=== PATIENT | female | born 1945 | race Caucasian/White ===

== ENCOUNTER → 2016-12-26 | Outpatient (CLI) | payer OTHER ==
[~2016-12-26] MED LIST: ASPI-435 PO; ATOR-24 PO; CARV6.252 PO; CLOP1TAB5 PO; CLR10 PO; DICL1GEL28 TOP; FRS/40 PO; LEVO150T9 PO; LISI2.5T5 PO; LSX/40 PO; NVLGI SC; NVLNI SQ; RANI300T2 PO; [UNRECOGNIZED DRUG - CODE] SQ
== END | disposition home or self-care (01) ==
LOC: C.LAB1850 15:43
PROVIDERS: ATTEND Physician Assistant
DX: E03.9 Hypothyroidism, unspecified (principal)

== ENCOUNTER → 2017-04-01 | Outpatient (CLI) | payer OTHER ==
[2017-04-01 18:19] LABS: THYROID STIMULATING HORMONE 10.9 uIu/ml (0.300-4.500)
[2017-04-02 06:54] LABS: ESTIMATED AVERAGE GLUCOSE 194 mg/dl; HA1C FLAG Normal (Normal)
== END | disposition home or self-care (01) ==
LOC: C.LABPBG 14:09
PROVIDERS: ATTEND Nurse Practitioner Family
DX: E03.9 Hypothyroidism, unspecified (principal); E11.9 Type 2 diabetes mellitus without complications

== ENCOUNTER → 2017-07-02 | Outpatient (CLI) | payer OTHER ==
[~2017-07-02] MED LIST changes: +DICL1GEL34 TOP; +LISI-1116 PO; -LISI2.5T5 PO; +NVLG SQ
[2017-07-03 07:03] LABS: HEMOGLOBIN A1C 8.2 % (4.5-5.6)
== END | disposition home or self-care (01) ==
LOC: C.LABPBG 11:25
PROVIDERS: ATTEND Nurse Practitioner Family
DX: E05.90 Thyrotoxicosis, unspecified without thyrotoxic crisis or storm (principal); E03.9 Hypothyroidism, unspecified; E11.65 Type 2 diabetes mellitus with hyperglycemia

== ENCOUNTER 2017-11-19 12:29 | Emergency (ER) | payer OTHER ==
[~2017-11-19 12:29] MED LIST changes: -DICL1GEL34 TOP; -NVLG SQ
[2017-11-19] MEDS ORDERED: SODIUM CHLORIDE 0.9% 1000ML 1,000 ML IV STA (12:39)
--- NOTE | 2017-11-19 12:44 | EMERGENCY ROOM VISIT NOTE ---
History Report prepared by Nitin: Lefty Dumas Under the Supervision of: Dr. Gretchen Kahn M.D. First contact with patient: 12:34 History of Present Illness The patient is a 72 year old female who presents to the Emergency Room via EMS with complaints of persistent hypoglycemia this morning. She says she is coming from home, and "was told" that her sugars were down to 39. The patient notes that she is not sure who called the ambulance. She says that she has no idea why her sugars would have dropped, as she ate last night and took her medications. The patient has not eaten today yet however. She says that she has not taken any medications this morning yet. She notes that she was given something in her IV before coming here. She states that she stayed up until 0300 this morning watching her television. The patient adds that she fell at [employer] a week ago, tripping over a rug in the store. She did hit the floor. The patient currently denies any pain or discomfort. She also denies any cough, fevers, vomiting, or bowel movement issues. The patient states that she has kidney troubles but is not on dialysis. Source of History: patient Onset: This morning Position: other (global) Symptom Intensity: sugars down to 39 Quality: other (hypoglycemia) Timing: other (persistent) Associated Symptoms: No fevers, No chills, No cough Note: Associated symptoms: Denies any pain or bowel movement issues. Review of Systems See HPI for pertinent positives & negatives. A total of 10 systems reviewed and were otherwise negative. Past Medical & Surgical Medical Problems: (1) Diabetes (2) Heart disease (3) Hypertension Family History Diabetes mellitus FH: cancer FH: heart disease Hypertension Social History Smoking Status: Former Smoker Alcohol Use: none Marital Status: Housing Status: lives with family Occupation Status: retired Current/Historical Medications Scheduled Aspirin (Aspirin 81), 81 MG PO DAILY Atorvastatin (Lipitor), 40 MG PO DAILY Carvedilol (Coreg), 6.25 MG PO BIDM Clopidogrel Bisulfate (Plavix), 75 MG PO DAILY Diclofenac Sodium (Topical) (Diclofenac Sodium), 2-4 GM TOP QID Furosemide (Lasix), 40 MG PO DAILY Insulin Aspart (Novolog), 35 UNITS SQ QDB Insulin Aspart (Novolog), 10 UNITS SQ QDD Insulin Human NPH (Novolin N), 65 UNITS SQ QDD Insulin Human NPH (Novolin N), 75 UNITS SQ QDB Levothyroxine Sodium (Levothyroxine Sodium), 150 MCG PO DAILY Lisinopril (Lisinopril), 2.5 MG PO DAILY Ranitidine Hcl (Zantac), 300 MG PO HS Scheduled PRN Furosemide (Lasix), 40 MG PO DAILY PRN for swelling Loratadine (Claritin), 10 MG PO DAILY PRN for allergies Allergies Coded Allergies: Sulfa Drugs (Unverified Allergy, Unknown, unknown, 11/19/17) Uncoded Allergies: BAND-AID (Allergy, Unknown, RASH, 10/16/15) Physical Exam Vital Signs Date Time Temp Pulse Resp B/P (MAP) Pulse Ox O2 Delivery O2 Flow Rate FiO2 11/19/17 14:30 55 18 133/68 99 Room Air 11/19/17 13:47 99 11/19/17 13:42 36.6 60 20 143/97 100 Room Air 11/19/17 12:40 56 11/19/17 12:33 147/56 11/19/17 12:30 52 20 147/56 98 Room Air Physical Exam Vital signs reviewed. General: Obese, disheveled 72 year old female, in no significant distress. HEENT: Right eye strabismus. Neck supple. Atraumatic. Cardiovascular: Regular rate and rhythm, no extra sounds. Pulmonary: Clear to auscultation bilaterally, normal work of breathing. Abdomen: Soft, nontender, nondistended, positive bowel sounds. Musculoskeletal: Atraumatic, no peripheral edema. Neurologic: Patient awake alert and oriented x 3, full strength in all 4 extremities. Cranial nerves 2 through 12 grossly intact. Skin: Warm, dry, no rash Medical Decision & Procedures ER Provider Diagnostic Interpretation: X-ray results as stated below per interpretation by me and the radiologist: CHEST ONE VIEW PORTABLE HISTORY: 72 years-old Female hypoglycemia COMPARISON: Chest radiograph 02/29/2016 TECHNIQUE: Portable AP view of the chest FINDINGS: Patient is slightly rotated to the right. Cardiac silhouette is again enlarged. Coronary arterial stent graft noted. Linear subsegmental bibasilar opacities suggest atelectasis or scarring. There is no pneumothorax, pleural effusion, lobar airspace consolidation or overt pulmonary edema. Bones of the chest appear grossly intact. Degenerative changes of the shoulders and spine. IMPRESSION: Cardiomegaly without acute process. The above report was generated using voice recognition software. It may contain grammatical, syntax or spelling errors. Electronically signed by: Ruslan Bragg M.D. 11/19/2017 12:56 PM Dictated Date/Time: 11/19/2017 12:55 PM Laboratory Results 11/19/17 12:47 Red Blood Count 4.90, Mean Corpuscular Volume 81.6, Mean Corpuscular Hemoglobin 26.7, Mean Corpuscular Hemoglobin Concent 32.8, Mean Platelet Volume 9.1, Neutrophils (%) (Auto) 79.3, Lymphocytes (%) (Auto) 14.7, Monocytes (%) (Auto) 4.2, Eosinophils (%) (Auto) 0.9, Basophils (%) (Auto) 0.5, Neutrophils # (Auto) 8.35, Lymphocytes # (Auto) 1.55, Monocytes # (Auto) 0.44, Eosinophils # (Auto) 0.10, Basophils # (Auto) 0.05 11/19/17 12:47 Test 11/19/17 12:47 11/19/17 13:40 11/19/17 14:40 White Blood Count 10.53 K/uL (4.8-10.8) Red Blood Count 4.90 M/uL (4.2-5.4) Hemoglobin 13.1 g/dL (12.0-16.0) Hematocrit 40.0 % (37-47) Mean Corpuscular Volume 81.6 fL (80-100) Mean Corpuscular Hemoglobin 26.7 pg (25-34) Mean Corpuscular Hemoglobin Concent 32.8 g/dl (32-36) Platelet Count 340 K/uL (130-400) Mean Platelet Volume 9.1 fL (7.4-10.4) Neutrophils (%) (Auto) 79.3 % Lymphocytes (%) (Auto) 14.7 % Monocytes (%) (Auto) 4.2 % Eosinophils (%) (Auto) 0.9 % Basophils (%) (Auto) 0.5 % Neutrophils # (Auto) 8.35 K/uL (1.4-6.5) Lymphocytes # (Auto) 1.55 K/uL (1.2-3.4) Monocytes # (Auto) 0.44 K/uL (0.11-0.59) Eosinophils # (Auto) 0.10 K/uL (0-0.5) Basophils # (Auto) 0.05 K/uL (0-0.2) RDW Standard Deviation 44.8 fL (36.4-46.3) RDW Coefficient of Variation 15.2 % (11.5-14.5) Immature Granulocyte % (Auto) 0.4 % Immature Granulocyte # (Auto) 0.04 K/uL (0.00-0.02) Anion Gap 6.0 mmol/L (3-11) Estimated GFR () 40.6 Estimated GFR (Non- 35.1 BUN/Creatinine Ratio 19.7 (10-20) Calcium Level 8.9 mg/dl (8.5-10.1) Total Bilirubin 0.6 mg/dl (0.2-1) Direct Bilirubin 0.2 mg/dl (0-0.2) Aspartate Amino Transf (AST/SGOT) 19 U/L (15-37) Alanine Aminotransferase (ALT/SGPT) 20 U/L (12-78) Alkaline Phosphatase 139 U/L (45-117) Troponin I < 0.015 ng/ml (0-0.045) Total Protein 7.9 gm/dl (6.4-8.2) Albumin 3.3 gm/dl (3.4-5.0) Thyroid Stimulating Hormone (TSH) 0.276 uIu/ml (0.300-4.500) Urine Color YELLOW Urine Appearance CLEAR (CLEAR) Urine pH 5.0 (4.5-7.5) Urine Specific Sharon 1.020 (1.000-1.030) Urine Protein NEG (NEG) Urine Glucose (UA) NEG (NEG) Urine Ketones NEG (NEG) Urine Occult Blood NEG (NEG) Urine Nitrite NEG (NEG) Urine Bilirubin NEG (NEG) Urine Urobilinogen NEG (NEG) Urine Leukocyte Esterase SMALL (NEG) Urine WBC (Auto) 5-10 /hpf (0-5) Urine RBC (Auto) 0-4 /hpf (0-4) Urine Hyaline Casts (Auto) 1-5 /lpf (0-5) Urine Epithelial Cells (Auto) 20-30 /lpf (0-5) Urine Bacteria (Auto) NEG (NEG) Bedside Glucose 155 mg/dl (70-90) Laboratory results per my review. Medications Administered Medications (Trade) Dose Ordered Sig/Nata Route Start Time Stop Time Status Last Admin Dose Admin Sodium Chloride 1,000 ml @ 150 mls/hr Q6H40M STAT IV 11/19/17 12:39 11/19/17 15:18 DC 11/19/17 12:55 150 MLS/HR ECG Per My Interpretation Indication: other (hypoglycemia) Rate (beats per minute): 59 Rhythm: sinus bradycardia Findings: 1st degree AV block, prolonged QT (qtc is 483), no ectopy ED Course 1239: Past medical records reviewed. The patient was evaluated in room C6. A complete history and physical examination was performed. 1239: NSS 1000 ml @ 150 mls/hr IV. 1452: Upon reevaluation, the patient appeared to be resting comfortably. I discussed findings with her. She verbalized agreement of the treatment plan. She will be discharged home. Medical Decision Differential diagnosis: Etiologies such as metabolic, infection, hypoglycemia, electrolyte abnormalities , cardiac sources, intracerebral event, toxicologic, neurologic, as well as others were entertained. This patient was evaluated and appeared to be in no significant distress. IV access was obtained and laboratory work was drawn. Patient was placed on the cardiac nurse specialist. She was found to be in a normal sinus rhythm. She was hydrated with normal saline solution. Patient is found to have a normal glucose level. She was given a diabetic tray. Patient's granddaughter arrived in the emergency department and states that she often does not eat for many hours in the morning. Patient's chest x-ray is negative for acute findings. Laboratory work reveals no significant derangement. Urinalysis is clear. Patient was discharged to the care of her granddaughter. The ED pharmacist spent some time educating the patient regarding her insulin. She will follow- up with her physician and return to the ER for worsening of symptoms or any medical concerns. Medication Reconcilliation Current Medication List: was personally reviewed by me Blood Pressure Screening Patient's blood pressure: Elevated blood pressure Blood pressure disposition: Elevated BP felt to be situational Impression Primary Impression: Hypoglycemia Scribe Attestation The scribe's documentation has been prepared under my direction and personally reviewed by me in its entirety. I confirm that the note above accurately reflects all work, treatment, procedures, and medical decision making performed by me. Departure Information Dispostion Home / Self-Care Referrals Mai Judge M.D. (PCP) Forms HOME CARE DOCUMENTATION FORM, IMPORTANT VISIT INFORMATION, WORK / SCHOOL INSTRUCTIONS Patient Instructions [facility] Additional Instructions Diagnosis: Hypoglycemia Please eat frequent and balanced snacks including a protein, fat, carbohydrate and fruits/vegetables. Be sure to eat as soon as you wake up. You may need to prepare a snack prior to bed. Drink plenty of clear fluids. Check your blood sugars for the next several days and follow-up with your doctor for reevaluation and consideration of change in your diabetes medications. Return to the emergency department for worsening of symptoms or any medical concerns.
[2017-11-19 12:57] LABS: BASO % 0.5 %; BASO ABS # 0.05 K/uL (0-0.2); EOS % 0.9 %; HEMOGLOBIN 13.1 g/dL (12.0-16.0); IG# 0.04 K/uL (0.00-0.02); LYMPH % 14.7 %; LYMPH ABS # 1.55 K/uL (1.2-3.4); MEAN CELL VOLUME 81.6 fL (80-100); MEAN CORPUSCULAR HEMOGLOBIN 26.7 pg (25-34); MEAN CORPUSCULAR HGB CONC 32.8 g/dl (32-36); MEAN PLATELET VOLUME 9.1 fL (7.4-10.4); MONO % 4.2 %; MONO ABS # 0.44 K/uL (0.11-0.59); NEUT % 79.3 %; NEUT ABS # 8.35 K/uL (1.4-6.5); PLATELET COUNT 340 K/uL (130-400); RED CELL DISTRIBUTION WIDTH CV 15.2 % (11.5-14.5); RED CELL DISTRIBUTION WIDTH SD 44.8 fL (36.4-46.3); WHITE BLOOD COUNT 10.53 K/uL (4.8-10.8)
--- NOTE | 2017-11-19 12:58 | DIAGNOSTIC IMAGING REPORT ---
CHEST ONE VIEW PORTABLE HISTORY: 72 years-old Female hypoglycemia COMPARISON: Chest radiograph 02/29/2016 TECHNIQUE: Portable AP view of the chest FINDINGS: Patient is slightly rotated to the right. Cardiac silhouette is again enlarged. Coronary arterial stent graft noted. Linear subsegmental bibasilar opacities suggest atelectasis or scarring. There is no pneumothorax, pleural effusion, lobar airspace consolidation or overt pulmonary edema. Bones of the chest appear grossly intact. Degenerative changes of the shoulders and spine. IMPRESSION: Cardiomegaly without acute process. The above report was generated using voice recognition software. It may contain grammatical, syntax or spelling errors. Electronically signed by: Ruslan Bragg M.D. 11/19/2017 12:56 PM Dictated Date/Time: 11/19/2017 12:55 PM
[2017-11-19 13:14] LABS: ALBUMIN 3.3 gm/dl (3.4-5.0); ALT/SGPT 20 U/L (12-78); AST/SGOT 19 U/L (15-37); BLOOD UREA NITROGEN 29 mg/dl (7-18); CALCIUM 8.9 mg/dl (8.5-10.1); CARBON DIOXIDE 27 mmol/L (21-32); CREATININE 1.47 mg/dl (0.60-1.20); GLUCOSE 93 mg/dl (70-99); POTASSIUM 4.1 mmol/L (3.5-5.1); SODIUM 142 mmol/L (136-145)
[2017-11-19 13:24] LABS: ALKALINE PHOSPHATASE 139 U/L (45-117); TOTAL PROTEIN 7.9 gm/dl (6.4-8.2)
[2017-11-19] MEDS ORDERED: NVLG SQ ×2 (13:28)
[2017-11-19] MEDS ORDERED: NVLNI SQ (13:28)
[2017-11-19] MEDS ORDERED: DICL1GEL34 TOP (13:28)
[2017-11-19 13:42] VITALS: TEMP 36.6
[2017-11-19 14:30] VITALS: BP 133/68; PULSE 55; O2SAT 99
--- NOTE | 2017-11-19 15:21 | Pharmacy Progress Note ---
ED Pharmacist Counseling Note Date of Service: November 19, 2017. I spent 5 minutes with the patient explaining insulin regimen. Spoke with patient regarding insulin regimen, specifically mixing insulin with patient and granddaughter. Patient has been mixing insulin. Novolog and NPH can be mixed, novolog should be drawn up first and then NPH. However, patients current regimen of Novolog 35 units with Breakfast, 10 units with Dinner and NPH 75 units with breakfast, 65 units with dinner- breakfast dose would exceed 100 Unit syringe. Patient says she puts it all in the 100 U syringe. She is unlikely to get proper doses - may be over dosing with recent hypoglycemia. Recommended that the patient give as two separate injections. Patient had no other questions.
== END 2017-11-19 14:58 | disposition home or self-care (01) ==
LOC: C.EDC 13:05
DX: E11.649 Type 2 diabetes mellitus with hypoglycemia without coma (principal); E66.9 Obesity, unspecified; H50.9 Unspecified strabismus; Z79.4 Long term (current) use of insulin; I11.9 Hypertensive heart disease without heart failure; Z79.82 Long term (current) use of aspirin; Z79.02 Long term (current) use of antithrombotics/antiplatelets; Z87.891 Personal history of nicotine dependence; Z88.8 Allergy status to other drugs, medicaments and biological substances

== ENCOUNTER 2017-11-19 17:34 | Emergency (ER) | payer OTHER ==
[~2017-11-19] VITALS: Ht 157.5 cm; Wt 114.6 kg
[~2017-11-19 17:34] MED LIST changes: +DICL1GEL34 TOP; +NVLG SQ
[2017-11-19 17:40] VITALS: TEMP 36.6; Ht 157.5 cm; Wt 114.6 kg
[2017-11-19 18:20] VITALS: O2SAT 99
[2017-11-19 18:48] LABS: BASO % 0.4 %; BASO ABS # 0.04 K/uL (0-0.2); EOS % 0.4 %; EOS ABS # 0.04 K/uL (0-0.5); HEMATOCRIT 35.7 % (37-47); HEMOGLOBIN 11.5 g/dL (12.0-16.0); IG# 0.04 K/uL (0.00-0.02); LYMPH % 14.3 %; LYMPH ABS # 1.61 K/uL (1.2-3.4); MEAN CELL VOLUME 82.3 fL (80-100); MEAN CORPUSCULAR HEMOGLOBIN 26.5 pg (25-34); MEAN CORPUSCULAR HGB CONC 32.2 g/dl (32-36); MEAN PLATELET VOLUME 8.9 fL (7.4-10.4); MONO % 4.1 %; MONO ABS # 0.46 K/uL (0.11-0.59); NEUT % 80.4 %; PLATELET COUNT 318 K/uL (130-400); RED CELL DISTRIBUTION WIDTH CV 15.1 % (11.5-14.5); RED CELL DISTRIBUTION WIDTH SD 45.4 fL (36.4-46.3); WHITE BLOOD COUNT 11.29 K/uL (4.8-10.8)
[2017-11-19 18:59] LABS: ALBUMIN 3.2 gm/dl (3.4-5.0); CALCIUM 8.4 mg/dl (8.5-10.1); CREATININE 1.64 mg/dl (0.60-1.20); POTASSIUM 4.3 mmol/L (3.5-5.1)
[2017-11-19 19:01] LABS: PTT PATIENT 26.4 SECONDS (21.0-31.0); TOTAL PROTEIN 7.4 gm/dl (6.4-8.2)
--- NOTE | 2017-11-19 19:19 | DIAGNOSTIC IMAGING REPORT ---
CHEST ONE VIEW PORTABLE CLINICAL HISTORY: Hypoxia, vaginal bleeding. COMPARISON STUDY: 11/19/2017 FINDINGS: The heart is borderline enlarged. There is no failure. There is no focal pulmonary consolidation. There are no pleural effusions.[ IMPRESSION: Borderline cardiomegaly. No acute findings. Electronically signed by: Rusty Alonso M.D. 11/19/2017 7:18 PM Dictated Date/Time: 11/19/2017 7:17 PM
--- NOTE | 2017-11-19 19:44 | DIAGNOSTIC IMAGING REPORT ---
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 TECHNIQUE: Real-time grayscale and color and spectral Doppler ultrasound imaging of the pelvis was performed using a transabdominal probe. COMPARISON: None. FINDINGS: Uterus: A hypoechoic round region at the uterine fundus suggests underlying fibroid, which measures 4.4 x 4.2 x 3.6 cm. Anteverted. The uterus measures 8.2 x 3.4 x 6.2 cm. Endometrial stripe measures 9 mm in thickness. Endometrium also contains few hyperechogenic foci suggesting calcifications. Cervix contains debris. Right adnexa: Right ovary normal. Right ovary measures 2.4 x 1.8 x 2.2 cm. Normal color Doppler flow and arterial and venous waveforms within the ovarian parenchyma. Left adnexa: Left ovary not visualized. Other: No free fluid. IMPRESSION: Pathologic thickening of the endometrium in this postmenopausal female. Gynecologic consultation is warranted for potential endometrial biopsy to exclude underlying endometrial carcinoma. Electronically signed by: Gerald Valdez M.D. 11/19/2017 7:43 PM Dictated Date/Time: 11/19/2017 7:38 PM
[2017-11-19 21:36] VITALS: BP 136/60; PULSE 66; O2SAT 97
--- NOTE | 2017-11-19 21:51 | EMERGENCY ROOM VISIT NOTE ---
History Report prepared by Nitin: Darrel Abbasi Under the Supervision of: Dr. Rl Thomas M.D. First contact with patient: 17:47 Chief Complaint: VAGINAL BLEEDING Stated Complaint: VAG BLEED History of Present Illness The patient is a 72 year old female who presents to the Emergency Room with complaints of intermittent vaginal bleeding beginning 3.5 hours ago. The patient states she was evaluated in the ED earlier today for hypoglycemia. She reports he returned home and went into her bedroom. The patient note she noticed she was bleeding from her vaginal area. She states she was not moving her bowels or urinating. The patient reports she called Dr. Judge's office and was told to come to her office tomorrow or go the ED today. Pt denies LOC, headache, fevers, chills, diaphoresis, visual changes, neck pain, chest pain, breathing difficulties, nausea, vomiting, abdominal pain, back pain, melena, hematochezia, urinary symptoms, numbness, weakness, lymphadenopathy, rash, bleeding from her mouth, nose bleeding, changes in her appetite, or other complaints. She notes a history of 4 stent placement and a history of diabetes. The patient states she takes Plavix and aspirin. Review of EMR states the patient was evaluated for hypoglycemia earlier today. The patient required three doses of D-50. The patient did not have hematuria or significant anemia earlier today. Source of History: patient Onset: 3.5 hours ago Position: other (vaginal area) Quality: other (bleeding) Timing: intermittent Review of Systems See HPI for pertinent positives and negatives. A total of ten systems were reviewed and were otherwise negative. Past Medical & Surgical Medical Problems: (1) Diabetes (2) Heart disease (3) Hypertension Family History Diabetes mellitus FH: cancer FH: heart disease Hypertension Social History Smoking Status: Former Smoker Alcohol Use: none Marital Status: Housing Status: lives with family Occupation Status: retired Current/Historical Medications Scheduled Aspirin (Aspirin 81), 81 MG PO DAILY Atorvastatin (Lipitor), 40 MG PO DAILY Carvedilol (Coreg), 6.25 MG PO BIDM Clopidogrel Bisulfate (Plavix), 75 MG PO DAILY Diclofenac Sodium (Topical) (Diclofenac Sodium), 2-4 GM TOP QID Furosemide (Lasix), 40 MG PO DAILY Insulin Aspart (Novolog), 35 UNITS SQ QDB Insulin Aspart (Novolog), 10 UNITS SQ QDD Insulin Human NPH (Novolin N), 65 UNITS SQ QDD Insulin Human NPH (Novolin N), 75 UNITS SQ QDB Levothyroxine Sodium (Levothyroxine Sodium), 150 MCG PO DAILY Lisinopril (Lisinopril), 2.5 MG PO DAILY Ranitidine Hcl (Zantac), 300 MG PO HS Scheduled PRN Furosemide (Lasix), 40 MG PO DAILY PRN for swelling Loratadine (Claritin), 10 MG PO DAILY PRN for allergies Allergies Coded Allergies: Sulfa Drugs (Unverified Allergy, Unknown, unknown, 11/19/17) Uncoded Allergies: BAND-AID (Allergy, Unknown, RASH, 10/16/15) Physical Exam Vital Signs Date Time Temp Pulse Resp B/P (MAP) Pulse Ox O2 Delivery O2 Flow Rate FiO2 11/19/17 21:36 66 18 136/60 97 11/19/17 21:11 66 18 136/60 97 Room Air 11/19/17 19:37 63 18 129/44 99 Room Air 11/19/17 18:33 63 11/19/17 18:20 99 Room Air 11/19/17 17:40 36.6 63 16 141/94 98 Room Air Physical Exam GENERAL: Awake, alert, well-appearing, in no distress HENT: Normocephalic, atraumatic. Oropharynx unremarkable. EYES: Normal conjunctiva. Sclera non-icteric. NECK: Supple. No nuchal rigidity. FROM. No masses. RESPIRATORY: Clear to auscultation. No wheezes. No rales. Normal respiratory effort. CARDIAC: Normal rate. Normal rhythm. No murmurs. No rubs. Extremities warm and well perfused. Pulses equal. No JVD. GI: Soft, non-distended. No tenderness to palpation. No rebound or guarding. No masses. RECTAL: No external bleeding noted. : Normal external anatomy. No active bleeding. No lesions noted. MUSCULOSKELETAL: Atraumatic. Chest examination reveals no tenderness. The back is symmetrical on inspection without obvious abnormality. There is no CVA tenderness to palpation. No joint edema. LOWER EXTREMITIES: Calves are equal size bilaterally and non-tender. No edema. No discoloration. NEURO: Normal sensorium. No sensory or motor deficits noted. SKIN: No rash or jaundice noted. 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 TECHNIQUE: Real-time grayscale and color and spectral Doppler ultrasound imaging of the pelvis was performed using a transabdominal probe. COMPARISON: None. FINDINGS: Uterus: A hypoechoic round region at the uterine fundus suggests underlying fibroid, which measures 4.4 x 4.2 x 3.6 cm. Anteverted. The uterus measures 8.2 x 3.4 x 6.2 cm. Endometrial stripe measures 9 mm in thickness. Endometrium also contains few hyperechogenic foci suggesting calcifications. Cervix contains debris. Right adnexa: Right ovary normal. Right ovary measures 2.4 x 1.8 x 2.2 cm. Normal color Doppler flow and arterial and venous waveforms within the ovarian parenchyma. Left adnexa: Left ovary not visualized. Other: No free fluid. IMPRESSION: Pathologic thickening of the endometrium in this postmenopausal female. Gynecologic consultation is warranted for potential endometrial biopsy to exclude underlying endometrial carcinoma. Electronically signed by: Gerald Valdez M.D. 11/19/2017 7:43 PM Dictated Date/Time: 11/19/2017 7:38 PM CHEST ONE VIEW PORTABLE CLINICAL HISTORY: Hypoxia, vaginal bleeding. COMPARISON STUDY: 11/19/2017 FINDINGS: The heart is borderline enlarged. There is no failure. There is no focal pulmonary consolidation. There are no pleural effusions.[ IMPRESSION: Borderline cardiomegaly. No acute findings. Electronically signed by: Rusty Alonso M.D. 11/19/2017 7:18 PM Dictated Date/Time: 11/19/2017 7:17 PM Laboratory Results 11/19/17 18:30 Red Blood Count 4.34, Mean Corpuscular Volume 82.3, Mean Corpuscular Hemoglobin 26.5, Mean Corpuscular Hemoglobin Concent 32.2, Mean Platelet Volume 8.9, Neutrophils (%) (Auto) 80.4, Lymphocytes (%) (Auto) 14.3, Monocytes (%) (Auto) 4.1, Eosinophils (%) (Auto) 0.4, Basophils (%) (Auto) 0.4, Neutrophils # (Auto) 9.10, Lymphocytes # (Auto) 1.61, Monocytes # (Auto) 0.46, Eosinophils # (Auto) 0.04, Basophils # (Auto) 0.04 11/19/17 18:30 Test 11/19/17 18:30 White Blood Count 11.29 K/uL (4.8-10.8) Red Blood Count 4.34 M/uL (4.2-5.4) Hemoglobin 11.5 g/dL (12.0-16.0) Hematocrit 35.7 % (37-47) Mean Corpuscular Volume 82.3 fL (80-100) Mean Corpuscular Hemoglobin 26.5 pg (25-34) Mean Corpuscular Hemoglobin Concent 32.2 g/dl (32-36) Platelet Count 318 K/uL (130-400) Mean Platelet Volume 8.9 fL (7.4-10.4) Neutrophils (%) (Auto) 80.4 % Lymphocytes (%) (Auto) 14.3 % Monocytes (%) (Auto) 4.1 % Eosinophils (%) (Auto) 0.4 % Basophils (%) (Auto) 0.4 % Neutrophils # (Auto) 9.10 K/uL (1.4-6.5) Lymphocytes # (Auto) 1.61 K/uL (1.2-3.4) Monocytes # (Auto) 0.46 K/uL (0.11-0.59) Eosinophils # (Auto) 0.04 K/uL (0-0.5) Basophils # (Auto) 0.04 K/uL (0-0.2) RDW Standard Deviation 45.4 fL (36.4-46.3) RDW Coefficient of Variation 15.1 % (11.5-14.5) Immature Granulocyte % (Auto) 0.4 % Immature Granulocyte # (Auto) 0.04 K/uL (0.00-0.02) Prothrombin Time 10.0 SECONDS (9.0-12.0) Prothromb Time International Ratio 1.0 (0.9-1.1) Activated Partial Thromboplast Time 26.4 SECONDS (21.0-31.0) Partial Thromboplastin Ratio 1.0 Anion Gap 4.0 mmol/L (3-11) Est Creatinine Clear Calc Drug Dose 36.6 ml/min Estimated GFR () 35.6 Estimated GFR (Non- 30.7 BUN/Creatinine Ratio 17.6 (10-20) Calcium Level 8.4 mg/dl (8.5-10.1) Total Bilirubin 0.6 mg/dl (0.2-1) Aspartate Amino Transf (AST/SGOT) 22 U/L (15-37) Alanine Aminotransferase (ALT/SGPT) 23 U/L (12-78) Alkaline Phosphatase 142 U/L (45-117) Total Protein 7.4 gm/dl (6.4-8.2) Albumin 3.2 gm/dl (3.4-5.0) Globulin 4.2 gm/dl (2.5-4.0) Albumin/Globulin Ratio 0.8 (0.9-2) Laboratory results reviewed by me ECG Per My Interpretation Indication: other (bleeding) Rate (beats per minute): 62 Rhythm: normal sinus Findings: no acute ischemic change, no ectopy ED Course 1800: The patient was evaluated in room A03. A complete history and physical exam was performed. 2021: I reevaluated the patient and updated her of her current test results. 2027: I discussed the patient's case with Dr. Crowley, [employer]. He will evaluate the patient as an outpatient. 2104: I reevaluated the patient. Discussed results and discharge instructions: she verbalized understanding and agreement. The patient is ready for discharge. Medical Decision Prior records/ancillary studies reviewed. Triage Nursing notes reviewed and agree them. Additional history obtained from the family. The patient's history was concerning for vaginal bleeding. Differential diagnosis: Etiologies such as malignancy, coagulopathy, dysfunction uterine bleeding, bleeding dyscrasia, trauma, infection, as well as others were entertained. Physical examination: As above. No bleeding at this time. ER treatment provided: No medication given On reassessment the patient felt better. Diagnostic interpretation by me: The labs revealed CBC, coagulation studies, and chemistries were unremarkable. The patient had a mildly low hemoglobin but this was stable compared to prior values except for this morning. Likely the patient was somewhat concentrated. Imaging studies: Chest x-ray ultrasound as above The patient has postmenopausal vaginal bleeding. She had a small spot within her undergarments. There is no active hemorrhage. Her hemoglobin is baseline compared to her historical values. EMS made note of her O2 saturation being low on their initial evaluation. She has been in the high 90s her entire time here and denies any difficulty breathing now or previously. She was seen earlier today and was not having any issues there either. Her chest x-ray was unremarkable. Her visit here today and the reason that she called the ambulance was specifically for the vaginal bleeding. It appears that this may be a technical abnormality as opposed to a true episode of hypoxia as the patient had no symptoms. Consultation: A consultation was placed with the [facility] emergency services manager physician, Dr. Crowley the case was discussed and diagnostics were reviewed. The patient will need an endometrial biopsy. He recommended close follow-up with the office and she was provided with the information. He also took her information so that the office can get in touch with her. By the evaluation outlined above other emergent etiologies such as those listed in the differential, as well as others, were deemed relatively unlikely. The patient was educated about the findings as listed above. All questions were answered and the patient was pleased with the treatment. Return instructions were outlined and the patient was discharged in stable condition. The patient was referred to [facility] [employer] for follow-up for a recheck of the current condition. Medication Reconcilliation Current Medication List: was personally reviewed by me Blood Pressure Screening Patient's blood pressure: Elevated blood pressure Blood pressure disposition: Elevated BP felt to be situational Consults Time Called: 2025 Consulting Physician: Dr. Crowley, [employer] Returned Call: 2027 I discussed the patient's case with Dr. Crowley, [employer] SUPER[employer]. He will evaluate the patient as an outpatient. Impression Primary Impression: Post-menopausal bleeding Additional Impression: Abnormal endometrial ultrasound Scribe Attestation The scribe's documentation has been prepared under my direction and personally reviewed by me in its entirety. I confirm that the note above accurately reflects all work, treatment, procedures, and medical decision making performed by me. Departure Information Dispostion Home / Self-Care Referrals Mai Judge M.D. (PCP) Darrel Crowley ., DO Forms HOME CARE DOCUMENTATION FORM, IMPORTANT VISIT INFORMATION, WORK / SCHOOL INSTRUCTIONS Patient Instructions My [facility] Additional Instructions [facility] [employer] [employer] tomorrow. Call the office. The number is listed below under Dr. Darrel Crowley. Return to the emergency department for passing out, abdominal pain, bleeding more than 3 pads an hour for 3 consecutive hours, or as needed. Rest and drink plenty of fluids. Continue your current medications. Watch blood sugar closely. Problem Qualifiers
--- NOTE | 2017-11-20 07:53 | DIAGNOSTIC IMAGING REPORT ---
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 TECHNIQUE: Real-time grayscale and color and spectral Doppler ultrasound imaging of the pelvis was performed using a transabdominal probe. COMPARISON: None. FINDINGS: Uterus: A hypoechoic round region at the uterine fundus suggests underlying fibroid, which measures 4.4 x 4.2 x 3.6 cm. Anteverted. The uterus measures 8.2 x 3.4 x 6.2 cm. Endometrial stripe measures 9 mm in thickness. Endometrium also contains few hyperechogenic foci suggesting calcifications. Cervix contains debris. Right adnexa: Right ovary normal. Right ovary measures 2.4 x 1.8 x 2.2 cm. Normal color Doppler flow and arterial and venous waveforms within the ovarian parenchyma. Left adnexa: Left ovary not visualized. Other: No free fluid. IMPRESSION: Pathologic thickening of the endometrium in this postmenopausal female. Gynecologic consultation is warranted for potential endometrial biopsy to exclude underlying endometrial carcinoma. Electronically signed by: Gerald Valdez M.D. 11/19/2017 7:43 PM Dictated Date/Time: 11/19/2017 7:38 PM
== END 2017-11-19 21:38 | disposition home or self-care (01) ==
LOC: EDBD 17:34 → C.EDA 17:35
DX: N95.0 Postmenopausal bleeding (principal); R93.8 Abnormal findings on diagnostic imaging of other specified body structures; E11.649 Type 2 diabetes mellitus with hypoglycemia without coma; I11.0 Hypertensive heart disease with heart failure; Z79.82 Long term (current) use of aspirin; Z91.048 Other nonmedicinal substance allergy status; Z87.891 Personal history of nicotine dependence; Z79.899 Other long term (current) drug therapy; Z79.4 Long term (current) use of insulin; Z88.2 Allergy status to sulfonamides

== ENCOUNTER 2020-11-13 20:07 | Inpatient (IN) ==
--- NOTE | 2020-11-13 20:13 | Emergency Department Note ---
Impression & Plan Acute hypoxemic respiratory failure, Multifocal pneumonia, Anemia, Hypocalcemia ED Provider Note NAME: EARNESTINE UREÑA AGE: 75 SEX: F : 1945 ARRIVES VIA: Walk-In INFORMANT: Patient, ED PROVIDER(S): Audie Rey MD Chief Complaint: Cough HPI: Patient does present with concern for cough is been ongoing approximately 1 week in duration. The patient did state that she got a Covid shot at the same time that her symptoms began. The patient states initially was productive but has been more dry. Patient symptoms have gotten progressively worse with no remitting factors. Patient does not report any fevers or chills but does have temperature in the emergency department. The patient has not taken anything at home to help her symptoms. Patient denies any nausea or vomiting. The patient describes decreased p.o. intake urine output. Patient denies any smoking. Patient does have a prior history of CAD and stents. Patient denies any current chest pains or shortness of breath. ROS: See HPI for pertinent positives and negatives. A total of 10 systems were reviewed and otherwise negative. Past medical history: See below Surgical history: See below Social history: See below Physical Exam: GENERAL: Mildly ill in appearance, wearing a mask NAD, non-toxic. EYE EXAM: Normal conjunctiva. PERRL, no anisocoria. Right eye exotropia. NECK: Supple, no nuchal rigidity, no adenopathy, non-tender. No signs of meningismus. LUNGS: Coarse sounds throughout. HEART: NSR, no MRG. ABDOMEN: Abdomen soft, non-tender, normo-active bowel sounds, no masses, no rebound or guarding. BACK: No CVA TTP. SKIN: No rashes and no bruising. UPPER EXTREMITIES: Upper extremities are grossly normal. LOWER EXTREMITIES: Grossly normal, trace bilateral symmetric pretibial edema. No erythema. NEURO EXAM: A&O x3, cranial nerves II-XII grossly intact, normal speech, moves all 4 extremities on command w/o issue. Differential diagnoses: Reactive airway disease, pneumonia, pneumothorax, COPD, CHF, infections, cardiac ischemia, pulmonary embolism, musculoskeletal, gastrointestinal, as well as other pathologies. Course: Patient was seen and evaluated the bedside. Full history physical exam was performed. EKG interpreted by me Indication: Shortness of breath Normal sinus rhythm, rate 80, normal intervals, normal axis, no obvious ST changes. No significant change from comparison EKG November 19, 2017. Imaging Studies: 1 view chest x-ray Impression: Multifocal pneumonia without obvious pneumothorax. Cardiac monitoring: An order was placed for continuous cardiac monitoring. The monitor shows a rate of 73 with sinus rhythm. MDM: Patient did present with concern for cough. The patient in triage was noted to be in the 90s but apparently upon presenting to the room the patient was hypoxic in the 70s. The patient was placed on 4 L nasal cannula. Patient did have improvement in her symptoms with a nasal cannula. Blood work was obtained along with MRSA and Covid swabs empiric Zosyn. Initially the patient white count was normal with lymphopenia and given this concern for hypoxia and multifocal pneum onia dexamethasone was ordered. EKG with no significant change from comparison. Patient did receive antipyretics. The patient does have chronic and stable kidney dysfunction with a creatinine 1.8. IV fluids were ordered. Mild hypocalcemia which is ordered for replacement as well. Troponin not detectable. I did speak with the on-call hospitalist Dr. [place] and the patient was admitted to the medicine service. I had had a CODE STATUS discussion with the patient during our initial H&P and the patient is DNR/DNI. Critical Care: I have personally spent 48 minutes of critical care time in direct management of this patient. This includes bedside care, interpretation of diagnostic studies, and testing, discussion with consultants, patient, and family members, and other require inpatient management activities. This 48 minutes is in excess of all separately billable procedures. Past Med/Surg History Medical History Anemia Asthma inhaler prn Chronic kidney disease follows with Dr. Bliss Diabetes mellitus with microalbuminuria Diabetes mellitus, type 2 Diabetes type 2, uncontrolled GERD (gastroesophageal reflux disease) Hyperlipidemia Hypertension Hypoparathyroidism Hypothyroidism Morbid obesity with BMI of 40.0-44.9, adult Myocardial Infarction 2003--follows with Dr. Vallejo On anticoagulant therapy plavix daily Osteoarthritis Surgical History History of bilateral tubal ligation History of cardiac cath total of 4---last 12/2018 @ [facility] with Dr. Vallejo History of cholecystectomy History of heart artery stent x4 total--last 12/2018 @ [facility]--pt unsure what kind, requested info be obtained from Dr. 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 Beliefs That Will Affect Care: None Current Living Situation: Family Current Living Situation Comment: Lives with sister Feels Safe at Home: Yes Assistive Devices: Denture - Upper and Denture - Lower Allergies Allergies Allergy/AdvReac Type Severity Reaction Status Date / Time Sulfa (Sulfonamide Allergy Mild nausea/vomi Verified 11/13/20 22:25 Antibiotics) ting BAND-AID Allergy Mild RASH Uncoded 11/13/20 22:25 Home Meds Home Medications Medication Instructions Recorded Confirmed albuterol sulfate 90 mcg/actuation 2 puffs INH QID PRN 02/22/19 11/13/20 aerosol inhaler aspirin 81 mg tablet,delayed 81 mg PO QAM 02/22/19 11/13/20 release benzonatate 100 mg capsule 100 mg PO TID PRN 02/22/19 11/13/20 furosemide 40 mg tablet 40 mg PO QAM 02/22/19 11/13/20 glucagon (human recombinant) 1 mg 1 mg IM Q20M PRN 02/22/19 11/13/20 solution for injection loratadine 10 mg tablet 10 mg PO QAM 02/22/19 11/13/20 acyclovir 1 applic TOPICAL UD PRN 04/14/19 11/13/20 atorvastatin 40 mg PO QAM 04/14/19 11/13/20 clopidogrel 75 mg PO QAM 04/14/19 11/13/20 diclofenac sodium 2 - 4 g TOP QID PRN 04/14/19 11/13/20 levothyroxine 175 mcg PO QAM 04/14/19 11/13/20 nystatin 1 applic TOPICAL DAILY PRN 04/14/19 11/13/20 triamcinolone acetonide 1 applic TOPICAL BID PRN 04/14/19 11/13/20 cholecalciferol (vitamin D3) 25 25 mcg PO DAILY 10/16/20 11/13/20 mcg (1,000 unit) capsule famotidine 40 mg tablet 40 mg PO DAILY 10/16/20 11/13/20 ferrous sulfate 325 mg (65 mg 325 mg PO DAILY 10/16/20 11/13/20 iron) tablet insulin NPH isoph U-100 human 100 45 - 75 unit SUBCUT AMPM ml 10/16/20 11/13/20 unit/mL subcutaneous suspension insulin aspart U-100 100 unit/mL 40 unit SQ DIRECTED ml 10/16/20 11/13/20 (3 mL) subcutaneous pen insulin syringe-needle U-100 1 mL #10 ea 10/16/20 10/16/20 30 gauge x 1/2" lisinopril 2.5 mg tablet 5 mg PO QAM tab 10/16/20 11/13/20 omega-3 fatty acids-fish oil 360 1 cap PO DAILY 10/16/20 11/13/20 mg-1,200 mg capsule Previous Rx's Medication Instructions Recorded carvedilol 6.25 mg tablet 6.25 mg PO BID #60 tab 02/22/19 Accu-Chek Fastclix Lancet Drum #102 ea NS 03/10/19 Accu-Chek Guide Glucose Meter #1 ea NS 03/10/19 BD Ultra-Fine Esha Pen Needle 32 #300 ea NS 09/15/19 gauge x 5/32" Accu-Chek Guide test strips #300 ea NS 09/12/20 Results & Data (ED) Vital Signs Vital Signs - 24 hr 11/13/20 20:09 11/13/20 20:22 11/13/20 20:27 Temperature 38.6 C H Temperature Source Temporal Artery Scan Pulse Rate 82 80 80 Pulse Rate from SpO2 Sensor 80 80 Respiratory Rate 24 32 H 24 Respiratory Effort / Characteristics Blood Pressure 127/69 151/77 H Blood Pressure Mean 88 101 Pulse Oximetry 91 96 97 Oxygen Delivery Method Room Air Nasal Cannula Oxygen Flow Rate 4 Sepsis Recent Fever Within 48 Hours Yes Sepsis New/Unexplained Change in Mental Status No Sepsis Action Taken by Nursing Physician Notified 11/13/20 20:30 11/13/20 20:45 11/13/20 21:00 Temperature Temperature Source Pulse Rate 79 80 79 Pulse Rate from SpO2 Sensor 79 79 79 Respiratory Rate 31 H 21 22 Respiratory Effort / Characteristics Blood Pressure Blood Pressure Mean Pulse Oximetry 96 98 95 Oxygen Delivery Method Oxygen Flow Rate Sepsis Recent Fever Within 48 Hours Sepsis New/Unexplained Change in Mental Status Sepsis Action Taken by Nursing 11/13/20 21:15 11/13/20 21:30 11/13/20 21:45 Temperature Temperature Source Pulse Rate 78 77 75 Pulse Rate from SpO2 Sensor 78 77 75 Respiratory Rate 25 H 23 21 Respiratory Effort / Characteristics Non-Labored Non-Labored Blood Pressure Blood Pressure Mean Pulse Oximetry 95 95 96 Oxygen Delivery Method Room Air Oxygen Flow Rate Sepsis Recent Fever Within 48 Hours Sepsis New/Unexplained Change in Mental Status Sepsis Action Taken by Nursing 11/13/20 22:00 11/13/20 22:01 Temperature 37.8 C H Temperature Source Oral Pulse Rate 73 Pulse Rate from SpO2 Sensor 73 Respiratory Rate 29 H Respiratory Effort / Characteristics Blood Pressure Blood Pressure Mean Pulse Oximetry 95 Oxygen Delivery Method Oxygen Flow Rate Sepsis Recent Fever Within 48 Hours Sepsis New/Unexplained Change in Mental Status Sepsis Action Taken by Jail Medications Current Medication List: was personally reviewed by me Laboratory Data Attestation: I reviewed the patient's lab results. Result diagrams: 11/13/20 21:21 11/13/20 21:21 Lab Results 11/13/20 11/13/20 11/13/20 Range/Units 20:32 20:55 21:21 WBC 8.53 (4.8-10.8) K/uL RBC 3.71 L (4.2-5.4) M/uL Hgb 9.9 L (12.0-16.0) g/dL Hct 29.5 L (37-47) % MCV 79.5 L (80-100) fL MCH 26.7 (25-34) pg MCHC 33.6 (32-36) g/dL RDW Std Deviation 47.2 H (36.4-46.3) fL RDW Coeff of Man 15.9 H (11.5-14.5) % Plt Count 278 (130-400) K/uL MPV 8.9 (7.4-10.4) fL Immature Gran % (Auto) 0.1 % Neut % (Auto) 86.2 % Lymph % (Auto) 8.8 % [place] % (Auto) 4.8 % Eos % (Auto) 0.0 % Baso % (Auto) 0.1 % Neut # (Auto) 7.35 H (1.4-6.5) K/uL Lymph # (Auto) 0.75 L (1.2-3.4) K/uL [place] # (Auto) 0.41 (0.11-0.59) K/uL Eos # (Auto) 0.00 (0-0.5) K/uL Baso # (Auto) 0.01 (0-0.2) K/uL Immature Gran # (Auto) 0.01 (0.00-0.02) K/uL PT (9.0-12.0) Seconds INR (0.9-1.1) APTT (21.0-31.0) Seconds PTT Ratio Sodium (136-145) mmol/L Potassium (3.5-5.1) mmol/L Chloride (98-107) mmol/L Carbon Dioxide (21-32) mmol/L Anion Gap (3-11) BUN (7-18) mg/dl Creatinine (0.6-1.2) mg/dl Est Cr Clr Drug Dosing ml/min Est GFR ( Amer) Est GFR (Non-Af Amer) BUN/Creatinine Ratio (10-20) Glucose (70-99) mg/dl Lactate (0.4-2.0) mmol/L Calcium (8.5-10.1) mg/dl Magnesium (1.8-2.4) mg/dl Total Bilirubin (0.2-1) mg/dl AST (15-37) U/L ALT (12-78) U/L Alkaline Phosphatase (45-117) U/L Troponin I (0-0.045) ng/ml Total Protein (6.4-8.2) gm/dl Albumin (3.4-5.0) gm/dl Globulin (2.5-4.0) gm/dl Albumin/Globulin Ratio (0.9-2) Procalcitonin (0-0.5) ng/ml Nasal Screen MRSA (PCR) Negative (Negative) COVID-19 Eval Order CovFluRsv at [facility] 11/13/20 11/13/20 11/13/20 Range/Units 21:21 21:21 21:21 WBC (4.8-10.8) K/uL RBC (4.2-5.4) M/uL Hgb (12.0-16.0) g/dL Hct (37-47) % MCV (80-100) fL MCH (25-34) pg MCHC (32-36) g/dL RDW Std Deviation (36.4-46.3) fL RDW Coeff of Man (11.5-14.5) % Plt Count (130-400) K/uL MPV (7.4-10.4) fL Immature Gran % (Auto) % Neut % (Auto) % Lymph % (Auto) % [place] % (Auto) % Eos % (Auto) % Baso % (Auto) % Neut # (Auto) (1.4-6.5) K/uL Lymph # (Auto) (1.2-3.4) K/uL [place] # (Auto) (0.11-0.59) K/uL Eos # (Auto) (0-0.5) K/uL Baso # (Auto) (0-0.2) K/uL Immature Gran # (Auto) (0.00-0.02) K/uL PT 10.3 (9.0-12.0) Seconds INR 1.0 (0.9-1.1) APTT 27.3 (21.0-31.0) Seconds PTT Ratio 1.0 Sodium 134 L (136-145) mmol/L Potassium 4.4 (3.5-5.1) mmol/L Chloride 102 (98-107) mmol/L Carbon Dioxide 24 (21-32) mmol/L Anion Gap 7.0 (3-11) BUN 39 H (7-18) mg/dl Creatinine 1.84 H (0.6-1.2) mg/dl Est Cr Clr Drug Dosing 31.7 ml/min Est GFR ( Amer) 30.3 Est GFR (Non-Af Amer) 26.2 BUN/Creatinine Ratio 21.2 H (10-20) Glucose 103 H (70-99) mg/dl Lactate 2.3 H* (0.4-2.0) mmol/L Calcium 7.9 L (8.5-10.1) mg/dl Magnesium 2.2 (1.8-2.4) mg/dl Total Bilirubin 0.7 (0.2-1) mg/dl AST 24 (15-37) U/L ALT 17 (12-78) U/L Alkaline Phosphatase 141 H (45-117) U/L Troponin I < 0.015 (0-0.045) ng/ml Total Protein 6.6 (6.4-8.2) gm/dl Albumin 2.4 L (3.4-5.0) gm/dl Globulin 4.2 H (2.5-4.0) gm/dl Albumin/Globulin Ratio 0.6 L (0.9-2) Procalcitonin (0-0.5) ng/ml Nasal Screen MRSA (PCR) (Negative) COVID-19 Eval Order 11/13/20 Range/Units 21:21 WBC (4.8-10.8) K/uL RBC (4.2-5.4) M/uL Hgb (12.0-16.0) g/dL Hct (37-47) % MCV (80-100) fL MCH (25-34) pg MCHC (32-36) g/dL RDW Std Deviation (36.4-46.3) fL RDW Coeff of Man (11.5-14.5) % Plt Count (130-400) K/uL MPV (7.4-10.4) fL Immature Gran % (Auto) % Neut % (Auto) % Lymph % (Auto) % [place] % (Auto) % Eos % (Auto) % Baso % (Auto) % Neut # (Auto) (1.4-6.5) K/uL Lymph # (Auto) (1.2-3.4) K/uL [place] # (Auto) (0.11-0.59) K/uL Eos # (Auto) (0-0.5) K/uL Baso # (Auto) (0-0.2) K/uL Immature Gran # (Auto) (0.00-0.02) K/uL PT (9.0-12.0) Seconds INR (0.9-1.1) APTT (21.0-31.0) Seconds PTT Ratio Sodium (136-145) mmol/L Potassium (3.5-5.1) mmol/L Chloride (98-107) mmol/L Carbon Dioxide (21-32) mmol/L Anion Gap (3-11) BUN (7-18) mg/dl Creatinine (0.6-1.2) mg/dl Est Cr Clr Drug Dosing ml/min Est GFR ( Amer) Est GFR (Non-Af Amer) BUN/Creatinine Ratio (10-20) Glucose (70-99) mg/dl Lactate (0.4-2.0) mmol/L Calcium (8.5-10.1) mg/dl Magnesium (1.8-2.4) mg/dl Total Bilirubin (0.2-1) mg/dl AST (15-37) U/L ALT (12-78) U/L Alkaline Phosphatase (45-117) U/L Troponin I (0-0.045) ng/ml Total Protein (6.4-8.2) gm/dl Albumin (3.4-5.0) gm/dl Globulin (2.5-4.0) gm/dl Albumin/Globulin Ratio (0.9-2) Procalcitonin 0.05 (0-0.5) ng/ml Nasal Screen MRSA (PCR) (Negative) COVID-19 Eval Order Administered Medications Discontinued Medications Dexamethasone Sodium Phosphate (DexamethasonePf 10 Mg/Ml Vial) 6 mg IV NOW ONE Stop: 11/13/20 21:38 Last Admin: 11/13/20 21:56 Dose: 6 mg Documented by: [id number] Piperacillin Sod/Tazobactam Sod (Zosyn) 4.5 gm in 120 mls @ 240 mls/hr IV NOW ONE Stop: 11/13/20 21:00 Last Admin: 11/13/20 21:38 Dose: 240 mls/hr Documented by: [id number] Acetaminophen (Ofirmev) 1,000 mg in 100 mls @ 400 mls/hr IV NOW STA Stop: 11/13/20 20:46 Last Infusion: 11/13/20 21:58 Dose: 0 mls/hr Documented by: [id number] Admin: 11/13/20 21:14 Dose: 400 mls/hr Documented by: [id number] Discharge Plan Visit Data Chief Complaint: Cough Stated Complaint: COUGH THROWING UP MUCUS ED Provider: Audie Rey Discharge Problem: Acute hypoxemic respiratory failure, Multifocal pneumonia, Anemia, Hypocalcemia Forms Stand Alone Forms: [facility] Prescriptions Prescriptions: No Action (DME) blood-glucose meter [Accu-Chek Guide Glucose Meter] misc See Dose Instructions .ROUTE .MEDSUPPLY Qty: 1 RF: 0 (DME) lancets [Accu-Chek Fastclix Lancet Drum] misc See Dose Instructions .ROUTE .MEDSUPPLY Qty: 102 RF: 3 (DME) pen needle, diabetic [BD Ultra-Fine Esha Pen Needle] 32 gauge x 5/32" needle See Rx Instructions .ROUTE .MEDSUPPLY Qty: 300 RF: 3 (DME) Accu-Chek Guide test strips Strip See Dose Instructions .ROUTE .MEDSUPPLY Qty: 300 RF: 3 aspirin 81 mg tablet,delayed release (DR/EC) 81 mg PO QAM RF: 0 carvedilol 6.25 mg tablet 6.25 mg PO BID Qty: 60 RF: 2 furosemide 40 mg tablet 40 mg PO QAM RF: 0 loratadine 10 mg tablet 10 mg PO QAM RF: 0 benzonatate 100 mg capsule 100 mg PO TID PRN (Reason: Cough) RF: 0 Glucagon Emergency Kit (human) 1 mg recon soln 1 mg IM Q20M PRN (Reason: Hypoglycemia) RF: 0 albuterol sulfate [Ventolin HFA] 90 mcg/actuation HFA aerosol inhaler 2 puffs INH QID PRN (Reason: Shortness Of Breath) RF: 0 lisinopril 2.5 mg tablet 5 mg PO QAM RF: 0 cholecalciferol (vitamin D3) 25 mcg (1,000 unit) capsule 25 mcg PO DAILY RF: 0 famotidine [Pepcid] 40 mg tablet 40 mg PO DAILY RF: 0 omega-3 fatty acids-fish oil [Fish Oil] 360-1,200 mg capsule 1 cap PO DAILY RF: 0 ferrous sulfate 325 mg (65 mg iron) tablet 325 mg PO DAILY RF: 0 (DME) insulin syringe-needle U-100 [BD Insulin Syringe Ultra-Fine] 1 mL 30 gauge x 1/2" syringe See Rx Instructions .ROUTE .MEDSUPPLY Qty: 10 RF: 0 insulin aspart U-100 [Novolog Flexpen U-100 Insulin] 100 unit/mL (3 mL) i nsulin pen 40 unit SQ DIRECTED RF: 0 Novolin N NPH U-100 Insulin 100 unit/mL suspension 45 - 75 unit SUBCUT AMPM RF: 0 levothyroxine 175 mcg Tablet 175 mcg PO QAM RF: 0 triamcinolone acetonide 0.1 % Cream 1 applic TOPICAL BID PRN (Reason: Rash) RF: 0 nystatin 100,000 unit/gram Cream 1 applic TOPICAL DAILY PRN (Reason: Rash) RF: 0 acyclovir 5 % Cream 1 applic TOPICAL UD PRN (Reason: Cold Sores) RF: 0 atorvastatin 40 mg tablet 40 mg PO QAM RF: 0 clopidogrel 75 mg tablet 75 mg PO QAM RF: 0 diclofenac sodium 1 % gel 2 - 4 g TOP QID PRN (Reason: joint pain) RF: 0 Discharge Problem: Anemia Qualifiers: Anemia type: unspecified type Qualified Code(s): D64.9 - Anemia, unspecified
[2020-11-13] MEDS ORDERED: PIPERACILL/TAZOBAC CONSULT ACTIVE PRN (20:31)
[2020-11-13] MEDS ORDERED: PIPERACILLIN/TAZOBACTAM 4.5 GM/120 ML BAG IV ONE (20:31)
[2020-11-13] MEDS ORDERED: ACETAMINOPHEN 1,000 MG/100 ML VIAL IV STA (20:32)
[2020-11-13 21:37] LABS: Basophils # (auto) 0.01 K/uL (0-0.2); Basophils % (auto) 0.1 %; Hematocrit (blood only) 29.5 % (37-47); Hemoglobin 9.9 g/dL (12.0-16.0); Immature Granulocytes # (auto) 0.01 K/uL (0.00-0.02); Immature Granulocytes % (auto) 0.1 %; Lymphocytes # (auto) 0.75 K/uL (1.2-3.4); Lymphocytes % (auto) 8.8 %; Mean Corpuscular Hemoglobin 26.7 pg (25-34); Mean Corpuscular Hgb Conc 33.6 g/dL (32-36); Mean Corpuscular Volume 79.5 fL (80-100); Mean Platelet Volume 8.9 fL (7.4-10.4); Monocytes # (auto) 0.41 K/uL (0.11-0.59); Monocytes % (auto) 4.8 %; Neutrophils # (auto) 7.35 K/uL (1.4-6.5); Neutrophils % (auto) 86.2 %; Platelet Count 278 K/uL (130-400); RDW Coefficient of Variation 15.9 % (11.5-14.5); RDW Standard Deviation 47.2 fL (36.4-46.3); Red Blood Count 3.71 M/uL (4.2-5.4); White Blood Count 8.53 K/uL (4.8-10.8)
[2020-11-13] MEDS ORDERED: dexAMETHasone**PF** 10 MG/ML VIAL IV ONE (21:37)
[2020-11-13 21:52] LABS: Partial Thromboplastin Time 27.3 Seconds (21.0-31.0); Prothrombin Time 10.3 Seconds (9.0-12.0)
[2020-11-13 22:03] LABS: Alanine Aminotransferase 17 U/L (12-78); Albumin Level 2.4 gm/dl (3.4-5.0); Aspartate Aminotransferase 24 U/L (15-37); BUN Creatinine Ratio 21.2 (10-20); Blood Urea Nitrogen 39 mg/dl (7-18); Calcium 7.9 mg/dl (8.5-10.1); Carbon Dioxide 24 mmol/L (21-32); Chloride 102 mmol/L (98-107); Creatinine Clr Calc Pharmacy 31.7 ml/min; Est GFR (African American) 30.3; Est GFR (Non-African American) 26.2; Glucose 103 mg/dl (70-99); Magnesium 2.2 mg/dl (1.8-2.4); Potassium 4.4 mmol/L (3.5-5.1); Sodium 134 mmol/L (136-145)
[2020-11-13 22:04] LABS: Influenza A virus by PCR Negative (Neg); Influenza B virus by PCR Negative (Neg); RSV by PCR Negative (Neg)
[2020-11-13 22:08] LABS: Albumin Globulin Ratio 0.6 (0.9-2); Alkaline Phosphatase 141 U/L (45-117); Bilirubin,Total 0.7 mg/dl (0.2-1); Globulin 4.2 gm/dl (2.5-4.0); Total Protein 6.6 gm/dl (6.4-8.2); Troponin I < 0.015 ng/ml (0-0.045)
[2020-11-13] MEDS ORDERED: SODIUM CHLORIDE 0.9% 1000ML 1,000 ML IV ONE (22:08)
[2020-11-13] MEDS ORDERED: CALCIUM GLUCONATE 1,000 MG/60 ML BAG IV STA (22:13)
[2020-11-13 22:52] LABS: SARS CoV2 RNA(COVID-19) InHosp POSITIVE (Negative)
[2020-11-14] MEDS ORDERED: TRIAMCINOLONE ACET 0.1% CR 15 GM TUBE TOP PRN (02:41)
[2020-11-14] MEDS ORDERED: DICLOFENAC SOD 1% GEL 100 GM TUBE EXT PRN (02:41)
[2020-11-14] MEDS ORDERED: ALBUTEROL HFA 8 GM INHALER INH PRN (02:41)
[2020-11-14] MEDS ORDERED: ACYCLOVIR 5% TOP PRN (02:41)
[2020-11-14] MEDS ORDERED: NYSTATIN CR 15 GM TUBE EXT PRN (02:41)
[2020-11-14] MEDS ORDERED: NITROGLYCERIN SL 0.4 MG/TAB TAB SL PRN (02:41)
[2020-11-14] MEDS ORDERED: FUROSEMIDE 40 MG/4 ML VIAL IV STA (02:41)
[2020-11-14] MEDS ORDERED: BENZONATATE 100 MG CAPSULE PO PRN (02:41)
[2020-11-14] MEDS ORDERED: PHARMACY GLYCEMIC MGMT CONSULT PRN (03:05)
[2020-11-14] MEDS ORDERED: REMDESIVIR 200 MG in SODIUM CHLORIDE 0.9% 210 ML IV ONE (03:30)
[2020-11-14] MEDS ORDERED: DEXTROSE 50% 50 ML SYRINGE IV PRN (03:30)
[2020-11-14] MEDS ORDERED: GLUCOSE 40% GEL 15 GM TUBE PO PRN (03:30)
[2020-11-14] MEDS ORDERED: GLUCOSE 10 TABS/TUBE PO PRN (03:30)
[2020-11-14] MEDS ORDERED: GLUCAGON FOR INJ 1 MG VIAL SQ PRN (03:30)
--- NOTE | 2020-11-14 03:52 | History and Physical Report ---
DATE OF ADMISSION: 11/14/2020 CHIEF COMPLAINT: Cough and shortness of breath. HISTORY OF PRESENT ILLNESS: This is a 75-year-old female with past medical history significant for type 2 diabetes; hypothyroidism; hyperlipidemia; asthma mild persistent; history of CAD; history of chronic systolic CHF; chronic kidney disease stage III; history of GERD; history of obesity; history of status post cardiac stent placement. The patient lives with her sister. Ambulates without any support, blind in her right eye. She got COVID shot about a week ago. Since last 3-4 days, she is having cough and progressively getting more short of breath bringing whitish phlegm. Denies any fever. No loss of sense of smell or taste. Appetite is okay. No headache, no abdominal pain, no diarrhea, no blurred vision, no earache, no runny nose, no sore throat, no dysphagia. Normal bladder movements. Says she was afebrile at home, but in the ER she has had temperature spike of 38.6 and she was saturating 76% on room air and on 4 liters she is saturating okay. Currently resting comfortably. Able to speak in full sentences, somewhat hard to hear, and COVID came back as positive. Chest x-ray is showing multifocal pneumonia. ALLERGIES: SULFA ANTIBIOTICS. PAST MEDICAL HISTORY: As mentioned above. PAST SURGICAL HISTORY: Cardiac stent placement, dilatation and curettage, hysteroscopy with biopsy, polypectomy, laparoscopic cholecystectomy, ligation of the oviducts, removal of the thyroid gland. MEDICATIONS: The patient is currently on acyclovir topical p.r.n. for cold sores, albuterol 2 puffs inhalation q.i.d. p.r.n., aspirin 81 mg p.o. daily, atorvastatin 40 mg p.o. a.m., benzonatate 100 mg p.o. t.i.d. p.r.n. for cough, Coreg 6.25 mg p.o. b.i.d., vitamin D 25 mcg p.o. daily, Plavix 75 mg p.o. daily, diclofenac sodium 2-4 grams topically q.i.d. p.r.n., famotidine 40 mg p.o. daily, ferrous sulfate 325 mg p.o. daily, Lasix 40 mg p.o. a.m., insulin sliding scale, insulin NPH 45 units in a.m. and 75 units in p.m., levothyroxine 175 mcg p.o. a.m., lisinopril 5 mg p.o. a.m., loratadine 10 mg p.o. a.m., nystatin topical p.r.n., omega fatty acids 1 capsule daily, triamcinolone topical b.i.d. p.r.n. FAMILY HISTORY: Significant for maternal aunt has breast cancer, mother has cancer, brother had heart attack at age 59, mother had CABG at age of 70. SOCIAL HISTORY: Lives with sister. Former smoker, quit in 1980. Smoked average 1 pack a day for 3 years. No alcohol use, no drug use. REVIEW OF SYSTEMS: As per HPI. Rest of the review of systems negative. PHYSICAL EXAMINATION: GENERAL: The patient is obese, not in acute distress. VITAL SIGNS: Temperature currently 37.8, pulse 57, respiratory rate 21, blood pressure 117/71, oxygen 97% on 4 liters. HEENT: Pupils equal, round. Blind in right eye. Head atraumatic. No facial droop. NECK: No JVD, no neck masses. CARDIOVASCULAR: S1, S2 heard, regular rate and rhythm, no murmur, no gallop. RESPIRATORY SYSTEM: Normal AP diameter. No accessory muscle use. No wheezing, no crackles. ABDOMEN: Soft, bowel sounds present, nontender. No distention. CENTRAL NERVOUS SYSTEM: Cranial nerves II-XII grossly intact, nonfocal. EXTREMITIES: Bilateral pedal edema present, no erythema seen. LABORATORY DATA: WBC 8.5, hemoglobin 9.9, hematocrit 29.5, platelets 278. PT 10.3, INR 1, APTT 27.3. Sodium 134, potassium 4.4, chloride 102, bicarbonate 24, BUN 39, creatinine 1.8, serum glucose 103, lactate 0.9, calcium 7.9, magnesium 2.2, total bilirubin 0.7, AST 24, ALT 17, alkaline phosphatase 141. Troponin I less than 0.015. Albumin 2.4. Procalcitonin 0.05. SARS-CoV-2 PCR positive. Influenza A and B PCR negative, RSV PCR negative. IMAGING DATA: Chest x-ray, bilateral pulmonary infiltrates seen. EKG: Normal sinus rhythm at a rate of 80, no significant change was found. ASSESSMENT AND PLAN: This is a 75-year-old female who presents with shortness of breath, cough, and hypoxia secondary to COVID pneumonia. 1. COVID pneumonia, hypoxia: Requiring 4 liters of oxygen. There is possible congestion in chest x-ray. We will give a dose of IV Lasix. She meets criteria for remdesivir and Decadron, which will be ordered and also follow the remdesivir labs. She is DNR/DNI. Does not want to be intubated or CPR even for a short period of time. Closely monitor in tele floor. Follow the labs. 2. Diabetes: Continue home insulin NPH, placed on insulin sliding scale. Follow HbA1c level. Follow her blood sugars while on Decadron.Glycemic pharmacy consult. 3. History of coronary artery disease status post stent: On aspirin, Plavix, Coreg and statin. Currently asymptomatic. 4. History of chronic systolic congestive heart failure: Ejection fraction of 40% to 45%. Continue Coreg and home Lasix and lisinopril. We will give a dose of IV Lasix and monitor. 5. Chronic kidney disease stage III: Baseline creatinine of 1.5-1.7, close to baseline. We will follow the labs. 6. Hypothyroidism: Continue Synthroid. 7. Hypertension: Continue lisinopril, Coreg. Will monitor the blood pressure. 8. History of asthma: On albuterol p.r.n. 9. History of gastroesophageal reflux disease: On Pepcid. 10. Obesity: Needs counseling. 11. Deep venous thrombosis prophylaxis: We will place on heparin subQ. DISPOSITION: Closely monitor in the tele floor. Code status DNR/DNI as per discussion with the patient. PT and OT prior to discharge. Social service to help with discharge planning. FLORESITA
[2020-11-14] MEDS: INSULIN ASPART 100 UNITS/ML 3 ML PEN SC SCH ×5 (04:36→21:27)
[2020-11-14] MEDS: SODIUM CHLORIDE 0.9% 10ML FLUSH IV SCH (06:22)
[2020-11-14] MEDS: HEPARIN SOD 5,000 UNIT/0.5 ML VIAL SQ SCH ×3 (06:22→21:27)
[2020-11-14] MEDS: LEVOTHYROXINE SODIUM 175 MCG TABLET PO SCH (06:23)
[2020-11-14 06:24] LABS: Basophils # (auto) 0.01 K/uL (0-0.2); Basophils % (auto) 0.1 %; Hematocrit (blood only) 31.6 % (37-47); Hemoglobin 10.2 g/dL (12.0-16.0); Immature Granulocytes # (auto) 0.03 K/uL (0.00-0.02); Immature Granulocytes % (auto) 0.4 %; Lymphocytes % (auto) 7.5 %; Mean Corpuscular Hemoglobin 25.7 pg (25-34); Mean Corpuscular Hgb Conc 32.3 g/dL (32-36); Mean Corpuscular Volume 79.6 fL (80-100); Mean Platelet Volume 9.2 fL (7.4-10.4); Monocytes # (auto) 0.19 K/uL (0.11-0.59); Monocytes % (auto) 2.4 %; Neutrophils # (auto) 7.19 K/uL (1.4-6.5); Neutrophils % (auto) 89.6 %; Platelet Count 272 K/uL (130-400); RDW Coefficient of Variation 15.8 % (11.5-14.5); RDW Standard Deviation 46.7 fL (36.4-46.3); Red Blood Count 3.97 M/uL (4.2-5.4); White Blood Count 8.02 K/uL (4.8-10.8)
[2020-11-14 06:44] LABS: D Dimer 780 ug/L FEU (0-500)
[2020-11-14 06:57] LABS: Estimated Average Glucose 197 mg/dl; Hemoglobin A1C 8.5 % (4.5-5.6)
[2020-11-14 07:14] LABS: BUN Creatinine Ratio 22.1 (10-20); Blood Urea Nitrogen 41 mg/dl (7-18); Calcium 8.1 mg/dl (8.5-10.1); Carbon Dioxide 21 mmol/L (21-32); Chloride 105 mmol/L (98-107); Creatinine Clr Calc Pharmacy 30.4 ml/min; Est GFR (African American) 29.7; Est GFR (Non-African American) 25.7; Glucose 148 mg/dl (70-99); Magnesium 2.6 mg/dl (1.8-2.4); Potassium 4.3 mmol/L (3.5-5.1); Sodium 136 mmol/L (136-145)
[2020-11-14 07:21] LABS: Troponin I < 0.015 ng/ml (0-0.045)
[2020-11-14] MEDS ORDERED: INSULIN HUMAN NPH SC SCH ×3 (08:00→17:00)
--- NOTE | 2020-11-14 08:24 | XRay Report ---
XR chest 1V portable HISTORY: 75 years-old Female SEPSIS acute cough with shortness of breath COMPARISON: Chest radiograph 11/19/2017 TECHNIQUE: Portable AP view of the chest FINDINGS: Moderate cardiomegaly. Patchy multifocal airspace opacities. Equivocal trace pleural effusions. No pn eumothorax. Degenerative changes of the shoulders and spine. IMPRESSION: Cardiomegaly with bilateral airspace opacities suggestive of multifocal pneumonia. ACT 112: Negative or not required by law. The above report was generated using voice recognition software. It may contain grammatical, syntax o r spelling errors. Electronically signed by: Ruslan Bragg M.D. 11/14/2020 8:23 AM
[2020-11-14] MEDS: ATORVASTATIN 40 MG TAB PO SCH (08:54)
[2020-11-14] MEDS: carvediloL 6.25 MG TAB PO SCH ×2 (08:54→21:31)
[2020-11-14] MEDS: ASPIRIN 81 MG ECTAB PO SCH (08:54)
[2020-11-14] MEDS: FUROSEMIDE 40 MG TAB PO SCH (08:55)
[2020-11-14] MEDS: CHOLECALCIFEROL 1,000 UNITS 25 MCG TAB PO SCH (08:55)
[2020-11-14] MEDS: FAMOTIDINE 40 MG TABLET PO SCH (08:55)
[2020-11-14] MEDS: FERROUS SULFATE 325 MG TAB PO SCH (08:55)
[2020-11-14] MEDS: CLOPIDOGREL BISULFATE 75 MG TAB PO SCH (08:55)
[2020-11-14] MEDS: lisinopril 5 MG TAB PO SCH (08:56)
[2020-11-14] MEDS: LORATADINE 10 MG TAB PO SCH (08:56)
[2020-11-14] MEDS ORDERED: INSULIN GLARGINE 100 UNIT/ML VIAL SC SCH (09:00)
--- NOTE | 2020-11-14 09:02 | Electrocardiogram Report ---
Test Reason : Blood Pressure : / mmHG Vent. Rate : 080 BPM Atrial Rate : 080 BPM P-R Int : 186 ms QRS Dur : 072 ms QT Int : 356 ms P-R-T Axes : 030 038 068 degrees QTc Int : 410 ms Poor data quality, interpretation may be adversely affected Normal sinus rhythm Normal ECG When compared with ECG of 19-NOV-2017 18:17, No significant change was found Confirmed by Thom Nance ([id number]) on 11/14/2020 9:01:42 AM Referred By: REFERRED SELF Confirmed By:Thom Nance
--- NOTE | 2020-11-14 10:15 | Pharmacy Report ---
Pharmacy Glycemic Short Note 2 - Date of Service November 14, 2020 - Glycemic Short BSG Results (Last 24 hours): 11/13/20 11/14/20 11/14/20 21:21 04:34 05:23 Glucose 103 H 148 H POC Glucose 128 H 11/14/20 07:55 Glucose POC Glucose 198 H OUTPATIENT ANTIDIABETIC REGIMEN: * NPH SC 75 units with breakfast, 45 units with dinner * Novolog SC 30 units with breakfast, 15 units with dinner * HbA1c = 8.5% (11/14/20) ASSESSMENT: * 75 yo F admitted last evening secondary to Covid-19 Pneumonia. Pharmacy has been consulted to assist with inpatient glycemic management. * Patient took all of her insulin yesterday prior to being admitted (NPH 75 + 45 and Novolog 30 + 10). She did receive 6 mg of IV dexamethasone in the ED. This will be continued daily for 10 days. * Fasting BSG was 198 mg/dL this AM which is likely elevated secondary to steroid induced hyperglycemia. * Will start with home dosing of NPH rather than reducing home dose as is usual practice upon admission to the hospital. * Starting Novolog based on best estimate of required total daily insulin dose * Goal range will be set at 110-140 mg/dL PLAN FOR INPATIENT GLYCEMIC CONTROL: * Basal insulin * NPH 75 units SC with breakfast * NPH 45 units SC with dinner * Bolus insulin * NovoLog per scale ACHS or Q6hrs while NPO * Goal Range: Low 110 mg/dL - High 140 mg/dL * Correction Factor: 10 mg/dL/unit * Nutritional / Prandial insulin per carb ratio of 1 unit per 3 grams CHO consumed PLAN FOR DISCHARGE: * To be determined
[2020-11-14] MEDS: dexAMETHasone 6 MG in SYRINGE 0 ML IV SCH (11:21)
[2020-11-14] MEDS ORDERED: dexAMETHasone 6 MG in SYRINGE 0 ML IV SCH (21:00)
[2020-11-15] MEDS: INSULIN ASPART 100 UNITS/ML 3 ML PEN SC SCH ×6 (00:19→21:02)
[2020-11-15] MEDS: HEPARIN SOD 5,000 UNIT/0.5 ML VIAL SQ SCH ×3 (05:48→21:02)
[2020-11-15] MEDS: LEVOTHYROXINE SODIUM 175 MCG TABLET PO SCH (05:48)
[2020-11-15] MEDS: ACETAMINOPHEN 325 MG TAB PO PRN (06:02)
[2020-11-15] MEDS: FERROUS SULFATE 325 MG TAB PO SCH (07:44)
[2020-11-15] MEDS: dexAMETHasone 6 MG in SYRINGE 0 ML IV SCH (07:51)
[2020-11-15] MEDS: LORATADINE 10 MG TAB PO SCH (07:54)
[2020-11-15] MEDS: lisinopril 5 MG TAB PO SCH (07:54)
[2020-11-15] MEDS: CLOPIDOGREL BISULFATE 75 MG TAB PO SCH (07:54)
[2020-11-15] MEDS: carvediloL 6.25 MG TAB PO SCH ×2 (07:54→21:04)
[2020-11-15] MEDS: ASPIRIN 81 MG ECTAB PO SCH (07:55)
[2020-11-15] MEDS: FUROSEMIDE 40 MG TAB PO SCH (07:55)
[2020-11-15] MEDS: ATORVASTATIN 40 MG TAB PO SCH (07:55)
[2020-11-15] MEDS: FAMOTIDINE 40 MG TABLET PO SCH (07:56)
[2020-11-15] MEDS: CHOLECALCIFEROL 1,000 UNITS 25 MCG TAB PO SCH (07:57)
[2020-11-15] MEDS ORDERED: INSULIN HUMAN NPH SC SCH ×2 (08:00→17:00)
--- NOTE | 2020-11-15 11:17 | Pharmacy Report ---
Pharmacy Glycemic Short Note 2 - Date of Service November 15, 2020 - Glycemic Short BSG Results (Last 24 hours): 11/14/20 11/14/20 11/14/20 11:19 11:20 15:59 POC Glucose 380 H* 383 H* 348 H* 11/14/20 11/14/20 11/15/20 16:01 20:17 00:03 POC Glucose 346 H* 244 H 179 H 11/15/20 11/15/20 03:36 07:17 POC Glucose 120 H 100 H OUTPATIENT ANTIDIABETIC REGIMEN: * NPH SC 75 units with breakfast, 45 units with dinner * Novolog SC 30 units with breakfast, 15 units with dinner * HbA1c = 8.5% (11/14/20) ASSESSMENT: 11/15: * Patient received a total of 264 units of insulin yesterday * 135 units NPH + 129 units bolus * BSGs were: [phone] mg/dL, uncontrolled * Fasting BSG this AM was 100 mg/dL, controlled * Hyperglycemia noted throughout yesterday was most likely due to IV dexamethasone doses received * Based on BSGs, AM NPH dose will be increased today and PM NPH dose will be decreased. If BID NPH is not adequately controlling BSGs within the next 24 hours, could consider discontinuing PM NPH and starting Lantus at bedtime. * Novolog was tightened last evening at dinner. No change today. 11/14: * 75 yo F admitted last evening secondary to Covid-19 Pneumonia. Pharmacy has been consulted to assist with inpatient glycemic management. * Patient took all of her insulin yesterday prior to being admitted (NPH 75 + 45 and Novolog 30 + 10). She did receive 6 mg of IV dexamethasone in the ED. This will be continued daily for 10 days. * Fasting BSG was 198 mg/dL this AM which is likely elevated secondary to steroid induced hyperglycemia. * Will start with home dosing of NPH rather than reducing home dose as is usual practice upon admission to the hospital. * Starting Novolog based on best estimate of required total daily insulin dose * Goal range will be set at 110-140 mg/dL PLAN FOR INPATIENT GLYCEMIC CONTROL: * Basal insulin - increased AM NPH, decreased PM NPH * NPH 90 units SC with breakfast * NPH 45 units SC with dinner * Bolus insulin * NovoLog per scale ACHS or Q6hrs while NPO * Goal Range: Low 110 mg/dL - High 140 mg/dL * Correction Factor: 8 mg/dL/unit * Nutritional / Prandial insulin per carb ratio of 1 unit per 2 grams CHO consumed PLAN FOR DISCHARGE: * HbA1c = 8.5% from this admission which is above the goal of less than 8% based on patient's age and comorbidities. * However, this has improved from previous HbA1c of 9.7% earlier this year. * Recommend continuing current outpatient regimen and close follow up with [facility] [place] Endocrinology Office.
[2020-11-15] MEDS: REMDESIVIR 100 MG in SODIUM CHLORIDE 0.9% 230 ML IV SCH (11:29)
[2020-11-15] MEDS: SODIUM CHLORIDE 0.9% 10ML FLUSH IV SCH (12:34)
--- NOTE | 2020-11-15 18:35 | Hospitalist Progress Note ---
Date of Service November 15, 2020 Assessment & Plan (1) Acute hypoxemic respiratory failure: (2) COVID-19: Present on admission with SOB and cough CXR showed cardiomegaly with bilateral airspace opacities suggestive of multifocal pneumonia. COVID 19 positive and elevated Lactate on admission She was starting on Remdesivir and Dexamethasone Continue monitor LFT while on IV Remdesivir Continue oxygen supplement Diabetes Hba1c 8.4 on 11/14/20 Pharmacy on board for glycemic management Continue monitor BS CAD status post stent Continue aspirin, plavix, Coreg and statin. Currently asymptomatic. CHF Continue Coreg and home Lasix and lisinopril. Last echo showed Ejection fraction of 40% to 45%. Continue PO lasix Chronic kidney disease stage III: Baseline creatinine of 1.5-1.7, close to baseline. Continue monitor BMP Hypothyroidism Continue Synthroid. Hypertension: Continue lisinopril, Coreg. History of asthma On albuterol p.r.n. Obesity BMI 46.2 Counseling on weight loss DVT px on heparin subq CODE STATUS DNR Admission and Anticipated Discharge Date Admission Date: November 14, 2020 Subjective Pt was seen and examined for follow up of SOB due to COVID 19 Sitting at the edge of the bed with no distress Pt said that she feels alot better today compared to yesterday Denies any chest pain, palpitation and fever Review of Systems Review of Systems: All systems reviewed & are unremarkable except as noted in Subjective Physical Exam Physical Exam: General- No acute distress Head- atraumatic Eyes- PERRL, EOMI, ENT- oropharynx clear Neck- supple, no JVD Lungs- Diminished BS Heart- regular rhythm; no murmur Abdomen- normal bowel sounds, soft, nontender Extremities- no calf tenderness Neuro- alert, oriented x 3; PERRL, EOMI; no facial palsy; no dysarthria Skin- warm & dry Results & Data Results & Data ([facility]) Vital Signs (Past 12 Hours) Vital Signs Temp Pulse Pulse Resp BP Pulse Ox 11/15/20 16:48 36.6 C 64 22 131/71 95 11/15/20 14:51 62 11/15/20 11:45 36.6 C 56 L 22 111/59 L 95 11/15/20 08:00 59 L 11/15/20 07:20 36.7 C 67 22 102/52 L 95
[2020-11-16] MEDS: LEVOTHYROXINE SODIUM 175 MCG TABLET PO SCH (06:15)
[2020-11-16] MEDS: HEPARIN SOD 5,000 UNIT/0.5 ML VIAL SQ SCH ×3 (06:16→21:39)
[2020-11-16] MEDS: ACETAMINOPHEN 325 MG TAB PO PRN (07:17)
[2020-11-16] MEDS: dexAMETHasone 6 MG in SYRINGE 0 ML IV SCH (07:17)
[2020-11-16] MEDS: FERROUS SULFATE 325 MG TAB PO SCH (07:18)
[2020-11-16] MEDS: FAMOTIDINE 40 MG TABLET PO SCH (07:18)
[2020-11-16] MEDS: CHOLECALCIFEROL 1,000 UNITS 25 MCG TAB PO SCH (07:18)
[2020-11-16] MEDS: ASPIRIN 81 MG ECTAB PO SCH (07:18)
[2020-11-16] MEDS: carvediloL 6.25 MG TAB PO SCH ×2 (07:18→20:29)
[2020-11-16] MEDS: ATORVASTATIN 40 MG TAB PO SCH (07:18)
[2020-11-16] MEDS: FUROSEMIDE 40 MG TAB PO SCH (07:19)
[2020-11-16] MEDS: CLOPIDOGREL BISULFATE 75 MG TAB PO SCH (07:19)
[2020-11-16] MEDS: lisinopril 5 MG TAB PO SCH (07:19)
[2020-11-16] MEDS: LORATADINE 10 MG TAB PO SCH (07:19)
[2020-11-16] MEDS: CARBOHYDRATES FOR HYPOGLYCEMIA PO PRN (07:38)
[2020-11-16] MEDS ORDERED: INSULIN HUMAN NPH SC SCH ×2 (08:00→17:00)
[2020-11-16] MEDS: NYSTATIN POWDER 15GM BTL EXT SCH ×2 (08:59→20:29)
[2020-11-16] MEDS: INSULIN ASPART 100 UNITS/ML 3 ML PEN SC SCH ×4 (09:14→20:47)
[2020-11-16 10:31] LABS: Hematocrit (blood only) 32.6 % (37-47); Hemoglobin 10.7 g/dL (12.0-16.0); Mean Corpuscular Hemoglobin 26.1 pg (25-34); Mean Corpuscular Hgb Conc 32.8 g/dL (32-36); Mean Corpuscular Volume 79.5 fL (80-100); Mean Platelet Volume 9.1 fL (7.4-10.4); Platelet Count 363 K/uL (130-400); RDW Coefficient of Variation 16.1 % (11.5-14.5); RDW Standard Deviation 47.4 fL (36.4-46.3); White Blood Count 11.66 K/uL (4.8-10.8)
[2020-11-16 11:15] LABS: Albumin Globulin Ratio 0.5 (0.9-2); Albumin Level 2.2 gm/dl (3.4-5.0); BUN Creatinine Ratio 35.3 (10-20); Bilirubin,Total 0.3 mg/dl (0.2-1); Calcium 8.3 mg/dl (8.5-10.1); Creatinine Clr Calc Pharmacy 30.5 ml/min; Est GFR (African American) 28.3; Est GFR (Non-African American) 24.4; Globulin 4.3 gm/dl (2.5-4.0); Potassium 4.3 mmol/L (3.5-5.1); Total Protein 6.5 gm/dl (6.4-8.2)
[2020-11-16 11:21] LABS: C Reactive Protein 5.6 mg/dl (0-0.29); Ferritin 380.9 ng/ml (8-388)
--- NOTE | 2020-11-16 11:31 | Electrocardiogram Report ---
Test Reason : Blood Pressure : / mmHG Vent. Rate : 093 BPM Atrial Rate : 110 BPM P-R Int : 000 ms QRS Dur : 096 ms QT Int : 374 ms P-R-T Axes : 000 030 063 degrees QTc Int : 465 ms Atrial fibrillation with premature ventricular or aberrantly conducted complexes Abnormal ECG When compared with ECG of 13-NOV-2020 20:42, Atrial fibrillation has replaced Sinus rhythm QT has lengthened Confirmed by Gregor Pickard ([id number]) on 11/16/2020 11:31:11 AM Referred By: REFERRED SELF Confirmed By:Gregor Pickard
[2020-11-16] MEDS: REMDESIVIR 100 MG in SODIUM CHLORIDE 0.9% 230 ML IV SCH (12:58)
[2020-11-16] MEDS: SODIUM CHLORIDE 0.9% 10ML FLUSH IV SCH (14:00)
[2020-11-16] MEDS ORDERED: DIGOXIN 500 MCG/2 ML AMP IV ONE (15:20)
[2020-11-16] MEDS ORDERED: METOPROLOL TARTRATE 1 MG/ML VIAL IV PRN (15:26)
--- NOTE | 2020-11-16 15:31 | Pharmacy Report ---
Pharmacy Glycemic Short Note 2 - Date of Service November 16, 2020 - Glycemic Short BSG Results (Last 24 hours): 11/15/20 11/15/20 11/16/20 16:47 20:32 07:32 Glucose POC Glucose 216 H 204 H 33 L* 11/16/20 11/16/20 11/16/20 07:33 07:45 07:52 Glucose POC Glucose 33 L* 43 L* 52 L* 11/16/20 11/16/20 11/16/20 07:58 08:03 08:59 Glucose POC Glucose 67 L* 78 131 H 11/16/20 11/16/20 11/16/20 10:19 10:53 11:53 Glucose 184 H POC Glucose 187 H 197 H OUTPATIENT ANTIDIABETIC REGIMEN: * NPH SC 75 units with breakfast, 45 units with dinner * Novolog SC 30 units with breakfast, 15 units with dinner * HbA1c = 8.5% (11/14/20) ASSESSMENT: 11/16/20: * Patient with significant hypoglycemia this morning (BSG 33mg/dL). * NPH further reduced today (for 95 units total vs 135 units yesterday). * Novolog parameters loosened, in the event that pt is experiencing insulin stacking in the setting of poor renal function. * Pt remains on dexamethasone 6mg IV daily. * Will add overnight checks tonight to provide additional coverage overnight and/or monitor for hypoglycemia. 11/15: * Patient received a total of 264 units of insulin yesterday * 135 units NPH + 129 units bolus * BSGs were: [phone] mg/dL, uncontrolled * Fasting BSG this AM was 100 mg/dL, controlled * Hyperglycemia noted throughout yesterday was most likely due to IV dexamethasone doses received * Based on BSGs, AM NPH dose will be increased today and PM NPH dose will be decreased. If BID NPH is not adequately controlling BSGs within the next 24 hours, could consider discontinuing PM NPH and starting Lantus at bedtime. * Novolog was tightened last evening at dinner. No change today. 11/14: * 75 yo F admitted last evening secondary to Covid-19 Pneumonia. Pharmacy has been consulted to assist with inpatient glycemic management. * Patient took all of her insulin yesterday prior to being admitted (NPH 75 + 45 and Novolog 30 + 10). She did receive 6 mg of IV dexamethasone in the ED. This will be continued daily for 10 days. * Fasting BSG was 198 mg/dL this AM which is likely elevated secondary to steroid induced hyperglycemia. * Will start with home dosing of NPH rather than reducing home dose as is usual practice upon admission to the hospital. * Starting Novolog based on best estimate of required total daily insulin dose * Goal range will be set at 110-140 mg/dL PLAN FOR INPATIENT GLYCEMIC CONTROL: * Basal insulin - * NPH 80 units SC with breakfast * NPH 15 units SC with dinner * Bolus insulin * NovoLog per scale ACHS or Q6hrs while NPO * Goal Range: Low 110 mg/dL - High 140 mg/dL * Correction Factor: 10 mg/dL/unit * Nutritional / Prandial insulin per carb ratio of 1 unit per 3 grams CHO consumed PLAN FOR DISCHARGE: * HbA1c = 8.5% from this admission which is above the goal of less than 8% based on patient's age and comorbidities. * However, this has improved from previous HbA1c of 9.7% earlier this year. * Recommend continuing current outpatient regimen and close follow up with [facility] [place] [facility].
--- NOTE | 2020-11-16 20:14 | Hospitalist Progress Note ---
Date of Service November 16, 2020 Assessment & Plan (1) Acute hypoxemic respiratory failure: (2) COVID-19: Present on admission with SOB and cough CXR showed cardiomegaly with bilateral airspace opacities suggestive of multifocal pneumonia. COVID 19 positive and elevated Lactate on admission She was starting on Remdesivir and Dexamethasone Inflammatory marker trending down with C-reactive protein from 11.6 to 5.6 Continue monitor LFT while on IV Remdesivir Continue oxygen supplement CLARISA on CKD stage 3 Creatinine 1.9 today Will hold lasix Will consider to d/c Remdesivir if creatinine worsening Continue monitor BMP Diabetes Hba1c 8.4 on 11/14/20 Pharmacy on board for glycemic management Continue monitor BS CAD status post stent Continue aspirin, plavix, Coreg and statin. Currently asymptomatic. CHF Continue Coreg and home Lasix and lisinopril. Last echo showed Ejection fraction of 40% to 45%. Continue PO lasix Chronic kidney disease stage III: Baseline creatinine of 1.5-1.7, close to baseline. Continue monitor BMP Hypothyroidism Continue Synthroid. Hypertension: Continue lisinopril, Coreg. History of asthma On albuterol p.r.n. Obesity BMI 46.2 Counseling on weight loss DVT px on heparin subq CODE STATUS DNR Admission and Anticipated Discharge Date Admission Date: November 14, 2020 Subjective Pt was seen and examined for follow up of SOB due to COVID 19 Sitting at the edge of the bed with no distress Pt went to afib early and converted back to normal sinus rhythm after receiving 1 dose of lopressor 2.5 mg IV She said that her breathing slightly improves Denies any chest pain, palpitation and fever Review of Systems Review of Systems: All systems reviewed & are unremarkable except as noted in Subjective Physical Exam Physical Exam: General- No acute distress Head- atraumatic Eyes- PERRL, EOMI, ENT- oropharynx clear Neck- supple, no JVD Lungs- Diminished BS Heart- regular rhythm; no murmur Abdomen- normal bowel sounds, soft, nontender Extremities- no calf tenderness Neuro- alert, oriented x 3; PERRL, EOMI; no facial palsy; no dysarthria Skin- warm & dry Results & Data Results & Data ([facility]) Vital Signs (Past 12 Hours) Vital Signs Temp Pulse Pulse Resp BP BP Pulse Ox 11/16/20 20:03 36.4 C L 60 18 108/46 L 95 05/06/21 16:30 62 11/16/20 16:27 62 108/62 11/16/20 15:49 127 H 101/63 11/16/20 15:12 36.7 C 111 H 22 96/66 L 97 11/16/20 10:45 35.1 C L 11/16/20 09:41 34.8 C L 90 20 108/50 L 93 11/16/20 09:33 93 H 11/16/20 09:10 34.7 C L 11/16/20 08:51 108 H 11/16/20 08:30 34.7 C L
[2020-11-16 21:29] LABS: Basophils # (auto) 0.03 K/uL (0-0.2); Basophils % (auto) 0.2 %; Hematocrit (blood only) 33.2 % (37-47); Hemoglobin 10.8 g/dL (12.0-16.0); Immature Granulocytes # (auto) 0.11 K/uL (0.00-0.02); Immature Granulocytes % (auto) 0.9 %; Lymphocytes # (auto) 0.95 K/uL (1.2-3.4); Lymphocytes % (auto) 7.7 %; Mean Corpuscular Hemoglobin 26.1 pg (25-34); Mean Corpuscular Hgb Conc 32.5 g/dL (32-36); Mean Corpuscular Volume 80.2 fL (80-100); Mean Platelet Volume 9.2 fL (7.4-10.4); Monocytes # (auto) 0.45 K/uL (0.11-0.59); Monocytes % (auto) 3.6 %; Neutrophils # (auto) 10.81 K/uL (1.4-6.5); Neutrophils % (auto) 87.6 %; Platelet Count 433 K/uL (130-400); RDW Coefficient of Variation 16.3 % (11.5-14.5); Red Blood Count 4.14 M/uL (4.2-5.4); White Blood Count 12.35 K/uL (4.8-10.8)
[2020-11-17] MEDS: INSULIN ASPART 100 UNITS/ML 3 ML PEN SC SCH ×6 (00:09→20:44)
[2020-11-17] MEDS: HEPARIN SOD 5,000 UNIT/0.5 ML VIAL SQ SCH ×3 (07:18→20:40)
[2020-11-17] MEDS: LEVOTHYROXINE SODIUM 175 MCG TABLET PO SCH (07:18)
[2020-11-17] MEDS: CARBOHYDRATES FOR HYPOGLYCEMIA PO PRN ×2 (07:44→08:02)
[2020-11-17] MEDS: dexAMETHasone 6 MG in SYRINGE 0 ML IV SCH (08:14)
[2020-11-17] MEDS: INSULIN HUMAN NPH SC SCH (08:14)
[2020-11-17] MEDS: carvediloL 6.25 MG TAB PO SCH ×2 (08:14→20:37)
[2020-11-17] MEDS: ASPIRIN 81 MG ECTAB PO SCH (08:15)
[2020-11-17] MEDS: FERROUS SULFATE 325 MG TAB PO SCH (08:15)
[2020-11-17] MEDS: ATORVASTATIN 40 MG TAB PO SCH (08:15)
[2020-11-17] MEDS: lisinopril 5 MG TAB PO SCH (08:15)
[2020-11-17] MEDS: LORATADINE 10 MG TAB PO SCH (08:15)
[2020-11-17] MEDS: CLOPIDOGREL BISULFATE 75 MG TAB PO SCH (08:15)
[2020-11-17] MEDS: CHOLECALCIFEROL 1,000 UNITS 25 MCG TAB PO SCH (08:15)
[2020-11-17] MEDS: FAMOTIDINE 40 MG TABLET PO SCH (08:15)
[2020-11-17] MEDS: NYSTATIN POWDER 15GM BTL EXT SCH ×2 (08:16→20:37)
[2020-11-17 10:19] LABS: Albumin Globulin Ratio 0.5 (0.9-2); Albumin Level 2.3 gm/dl (3.4-5.0); BUN Creatinine Ratio 39.1 (10-20); Bilirubin,Total 0.3 mg/dl (0.2-1); C Reactive Protein 3.85 mg/dl (0-0.29); Creatinine Clr Calc Pharmacy 30.8 ml/min; Est GFR (African American) 29.5; Est GFR (Non-African American) 25.5; Globulin 4.3 gm/dl (2.5-4.0); Total Protein 6.6 gm/dl (6.4-8.2)
--- NOTE | 2020-11-17 10:58 | Pharmacy Report ---
Pharmacy Glycemic Short Note 2 - Date of Service November 17, 2020 - Glycemic Short BSG Results (Last 24 hours): 11/16/20 11/16/20 11/16/20 10:19 10:53 11:53 Glucose 184 H POC Glucose 187 H 197 H 11/16/20 11/16/20 11/16/20 16:29 19:53 23:51 Glucose POC Glucose 219 H 280 H 184 H 11/17/20 11/17/20 11/17/20 03:58 07:40 07:41 Glucose POC Glucose 87 55 L* 59 L* 11/17/20 11/17/20 11/17/20 08:02 08:22 09:27 Glucose 146 H POC Glucose 65 L* 234 H OUTPATIENT ANTIDIABETIC REGIMEN: * NPH SC 75 units with breakfast, 45 units with dinner * Novolog SC 30 units with breakfast, 15 units with dinner * HbA1c = 8.5% (11/14/20) ASSESSMENT: 11/17/20: * Despite reduced NPH dose last evening, pt was still slightly hypoglycemic this morning. * Will discontinue evening NPH moving forward. * NPH dose increased slightly this morning and carb ratio tightened slightly d/t persistent hyperglycemia through the afternoon/evening. * Pt remains on IV dexamethasone. 11/16: * Patient with significant hypoglycemia this morning (BSG 33mg/dL). * NPH further reduced today (for 95 units total vs 135 units yesterday). * Novolog parameters loosened, in the event that pt is experiencing insulin stacking in the setting of poor renal function. * Pt remains on dexamethasone 6mg IV daily. * Will add overnight checks tonight to provide additional coverage overnight and/or monitor for hypoglycemia. 11/15: * Patient received a total of 264 units of insulin yesterday * 135 units NPH + 129 units bolus * BSGs were: [phone] mg/dL, uncontrolled * Fasting BSG this AM was 100 mg/dL, controlled * Hyperglycemia noted throughout yesterday was most likely due to IV dexamethasone doses received * Based on BSGs, AM NPH dose will be increased today and PM NPH dose will be decreased. If BID NPH is not adequately controlling BSGs within the next 24 hours, could consider discontinuing PM NPH and starting Lantus at bedtime. * Novolog was tightened last evening at dinner. No change today. PLAN FOR INPATIENT GLYCEMIC CONTROL: * Basal insulin - * NPH 90 units SC with breakfast * NPH with dinner -- NONE * Bolus insulin * NovoLog per scale ACHS or Q6hrs while NPO * Goal Range: Low 110 mg/dL - High 140 mg/dL * Correction Factor: 10 mg/dL/unit * Nutritional / Prandial insulin per carb ratio of 1 unit per 2.5 grams CHO consumed PLAN FOR DISCHARGE: * HbA1c = 8.5% from this admission which is above the goal of less than 8% based on patient's age and comorbidities. * However, this has improved from previous HbA1c of 9.7% earlier this year. * Recommend continuing current outpatient regimen and close follow up with [facility] [place] Endocrinology Office.
[2020-11-17] MEDS: SODIUM CHLORIDE 0.9% 10ML FLUSH IV SCH (16:00)
--- NOTE | 2020-11-17 18:28 | Hospitalist Progress Note ---
Date of Service November 17, 2020 Assessment & Plan (1) Acute hypoxemic respiratory failure: (2) COVID-19: Present on admission with SOB and cough CXR showed cardiomegaly with bilateral airspace opacities suggestive of multifocal pneumonia. COVID 19 positive and elevated Lactate on admission She was starting on Remdesivir and Dexamethasone Inflammatory marker trending down with C-reactive protein from 11.6 ->5.6-> 3.85 and ESR from 69 to 67 IV Remdesivir put on hold today due to decrease in renal function Continue oxygen supplement Continue encourage pt to prone Will need 2 step exercise on discharge CLARISA on CKD stage 3 Creatinine 1.8 today Continue to hold lasix and remdesivir today Continue monitor BMP Afib Brief episode of afib yesterday Converted back to NSR after receiving Lopressor 2.5 mg IV x1 Continue Carvedilol 6.25mg PO BID Continue aspirin and plavix Diabetes Hba1c 8.4 on 11/14/20 Pharmacy on board for glycemic management Continue monitor BS CAD status post stent Continue aspirin, plavix, Coreg and statin. Currently asymptomatic. CHF Continue Coreg and home Lasix and lisinopril. Last echo showed Ejection fraction of 40% to 45%. Continue PO lasix Chronic kidney disease stage III: Baseline creatinine of 1.5-1.7, close to baseline. Continue monitor BMP Hypothyroidism Continue Synthroid. Hypertension: Continue lisinopril, Coreg. History of asthma On albuterol p.r.n. Obesity BMI 46.2 Counseling on weight loss DVT px on heparin subq CODE STATUS DNR Admission and Anticipated Discharge Date Admission Date: November 14, 2020 Subjective Pt was seen and examined for follow up of SOB due to COVID 19 Lying in bed with no distress Pt said that she is feeling better today She walked in the hallway with therapy today Denies any chest pain, palpitation and fever Review of Systems Review of Systems: All systems reviewed & are unremarkable except as noted in Subjective Physical Exam Physical Exam: General- No acute distress Head- atraumatic Eyes- PERRL, EOMI, ENT- oropharynx clear Neck- supple, no JVD Lungs- Diminished BS Heart- regular rhythm; no murmur Abdomen- normal bowel sounds, soft, nontender Extremities- no calf tenderness Neuro- alert, oriented x 3; PERRL, EOMI; no facial palsy; no dysarthria Skin- warm & dry Results & Data Results & Data ([facility]) Vital Signs (Past 12 Hours) Vital Signs Temp Pulse Pulse Resp BP Pulse Ox 11/17/20 15:50 36.5 C 58 L 16 128/66 94 11/17/20 11:58 36.7 C 56 L 20 124/73 96 11/17/20 10:41 60 11/17/20 08:05 36.6 C 54 L 16 128/67 94 11/17/20 08:00 57 L
[2020-11-18] MEDS: LEVOTHYROXINE SODIUM 175 MCG TABLET PO SCH (05:50)
[2020-11-18] MEDS: HEPARIN SOD 5,000 UNIT/0.5 ML VIAL SQ SCH ×3 (05:50→20:58)
[2020-11-18] MEDS: FAMOTIDINE 40 MG TABLET PO SCH (08:04)
[2020-11-18] MEDS: ASPIRIN 81 MG ECTAB PO SCH (08:04)
[2020-11-18] MEDS: CLOPIDOGREL BISULFATE 75 MG TAB PO SCH (08:04)
[2020-11-18] MEDS: carvediloL 6.25 MG TAB PO SCH ×2 (08:04→20:58)
[2020-11-18] MEDS: LORATADINE 10 MG TAB PO SCH (08:04)
[2020-11-18] MEDS: FERROUS SULFATE 325 MG TAB PO SCH (08:04)
[2020-11-18] MEDS: CHOLECALCIFEROL 1,000 UNITS 25 MCG TAB PO SCH (08:05)
[2020-11-18] MEDS: ATORVASTATIN 40 MG TAB PO SCH (08:05)
[2020-11-18] MEDS: lisinopril 5 MG TAB PO SCH (08:05)
[2020-11-18] MEDS: INSULIN HUMAN NPH SC SCH (08:06)
[2020-11-18] MEDS: INSULIN ASPART 100 UNITS/ML 3 ML PEN SC SCH ×4 (08:08→20:50)
[2020-11-18] MEDS: NYSTATIN POWDER 15GM BTL EXT SCH ×2 (08:09→20:58)
[2020-11-18] MEDS ORDERED: INSULIN HUMAN NPH SC SCH (08:15)
[2020-11-18] MEDS: dexAMETHasone 6 MG in SYRINGE 0 ML IV SCH (08:17)
[2020-11-18 11:00] LABS: BUN Creatinine Ratio 45.4 (10-20); Calcium 8.8 mg/dl (8.5-10.1); Creatinine Clr Calc Pharmacy 36.7 ml/min; Est GFR (African American) 36.5; Est GFR (Non-African American) 31.5
[2020-11-18] MEDS: SODIUM CHLORIDE 0.9% 10ML FLUSH IV SCH (12:12)
--- NOTE | 2020-11-18 12:21 | Pharmacy Report ---
Pharmacy Glycemic Short Note 2 - Date of Service November 18, 2020 - Glycemic Short BSG Results (Last 24 hours): 11/17/20 11/17/20 11/18/20 16:49 20:35 07:57 Glucose POC Glucose 183 H 200 H 79 11/18/20 11/18/20 10:19 11:32 Glucose 116 H POC Glucose 112 H OUTPATIENT ANTIDIABETIC REGIMEN: * NPH SC 75 units with breakfast, 45 units with dinner * Novolog SC 30 units with breakfast, 15 units with dinner * HbA1c = 8.5% (11/14/20) ASSESSMENT: 11/18 * Despite increased NPH dose yesterday morning, patient's trend in postprandial hyperglycemia continued throughout the day * Will increase AM NPH dose further this AM * AM fasting improved with discontinuation of PM NPH so will continue to hold PM dose * Tightened Novolog today given continued upward trend in postprandials likely due to steroids * Continues on IV dexamethasone 11/17 * Despite reduced NPH dose last evening, pt was still slightly hypoglycemic this morning. * Will discontinue evening NPH moving forward. * NPH dose increased slightly this morning and carb ratio tightened slightly d/t persistent hyperglycemia through the afternoon/evening. * Pt remains on IV dexamethasone. PLAN FOR INPATIENT GLYCEMIC CONTROL: * Basal insulin - increased NPH * NPH 100 units SC with breakfast * Bolus insulin - tightened CF/CR * NovoLog per scale ACHS or Q6hrs while NPO * Goal Range: Low 110 mg/dL - High 140 mg/dL * Correction Factor: 8 mg/dL/unit * Nutritional / Prandial insulin per carb ratio of 1 unit per 2 grams CHO consumed PLAN FOR DISCHARGE: * HbA1c = 8.5% from this admission which is above the goal of less than 8% based on patient's age and comorbidities. * However, this has improved from previous HbA1c of 9.7% earlier this year. * Recommend continuing current outpatient regimen and close follow up with [facility] [place].
--- NOTE | 2020-11-18 18:40 | Hospitalist Progress Note ---
Date of Service November 18, 2020 Assessment & Plan (1) Acute hypoxemic respiratory failure: (2) COVID-19: Present on admission with SOB and cough CXR showed cardiomegaly with bilateral airspace opacities suggestive of multifocal pneumonia. COVID 19 positive and elevated Lactate on admission She was starting on Remdesivir and Dexamethasone Inflammatory marker trending down with C-reactive protein from 11.6 ->5.6-> 3.85 and ESR from 69 to 67 IV Remdesivir put on hold today due to decrease in renal function Continue oxygen supplement Continue encourage pt to prone Will need 2 step exercise on discharge Afib Brief episode of afib yesterday Converted back to NSR after receiving Lopressor 2.5 mg IV x1 Continue Carvedilol 6.25mg PO BID Continue aspirin and plavix Diabetes Hba1c 8.4 on 11/14/20 Pharmacy on board for glycemic management Continue monitor BS CAD status post stent Continue aspirin, plavix, Coreg and statin. Currently asymptomatic. CHF Continue Coreg and home Lasix and lisinopril. Last echo showed Ejection fraction of 40% to 45%. Continue PO lasix Chronic kidney disease stage III: Baseline creatinine of 1.5-1.7, close to baseline. Creatinine improved to 1.5 today lasix and remdesivir were on hold Will resume lasix in am Hypothyroidism Continue Synthroid. Hypertension: Continue lisinopril, Coreg. History of asthma On albuterol p.r.n. Obesity BMI 46.2 Counseling on weight loss DVT px on heparin subq CODE STATUS DNR Admission and Anticipated Discharge Date Admission Date: November 14, 2020 Subjective Pt was seen and examined for follow up of SOB due to COVID 19 Lying in bed with no distress Pt said that she is feeling much better She was on RA early She only puts the oxygen for comfort Denies any chest pain, palpitation and fever Review of Systems Review of Systems: All systems reviewed & are unremarkable except as noted in Subjective Physical Exam Physical Exam: General- No acute distress Head- atraumatic Eyes- PERRL, EOMI, ENT- oropharynx clear Neck- supple, no JVD Lungs- Diminished BS Heart- regular rhythm; no murmur Abdomen- normal bowel sounds, soft, nontender Extremities- no calf tenderness Neuro- alert, oriented x 3; PERRL, EOMI; no facial palsy; no dysarthria Skin- warm & dry Results & Data Results & Data ([facility]) Vital Signs (Past 12 Hours) Vital Signs Temp Pulse Pulse Resp BP Pulse Ox 11/18/20 16:25 36.4 C L 63 22 135/93 93 11/18/20 11:01 36.4 C L 68 20 135/93 98 11/18/20 08:00 55 L 11/18/20 07:59 36.7 C 55 L 20 135/63 93
[2020-11-19] MEDS ORDERED: INSULIN ASPART 100 UNITS/ML 3 ML PEN SC ONE (04:00)
[2020-11-19] MEDS: LEVOTHYROXINE SODIUM 175 MCG TABLET PO SCH (05:43)
[2020-11-19] MEDS: HEPARIN SOD 5,000 UNIT/0.5 ML VIAL SQ SCH ×2 (05:43→12:53)
[2020-11-19] MEDS: CARBOHYDRATES FOR HYPOGLYCEMIA PO PRN (07:36)
[2020-11-19] MEDS: ASPIRIN 81 MG ECTAB PO SCH (07:39)
[2020-11-19] MEDS: FAMOTIDINE 40 MG TABLET PO SCH (07:40)
[2020-11-19] MEDS: FERROUS SULFATE 325 MG TAB PO SCH (07:40)
[2020-11-19] MEDS: LORATADINE 10 MG TAB PO SCH (07:40)
[2020-11-19] MEDS: CHOLECALCIFEROL 1,000 UNITS 25 MCG TAB PO SCH (07:40)
[2020-11-19] MEDS: CLOPIDOGREL BISULFATE 75 MG TAB PO SCH (07:40)
[2020-11-19] MEDS: lisinopril 5 MG TAB PO SCH (07:40)
[2020-11-19] MEDS: ATORVASTATIN 40 MG TAB PO SCH (07:40)
[2020-11-19] MEDS: carvediloL 6.25 MG TAB PO SCH (07:41)
[2020-11-19] MEDS: NYSTATIN POWDER 15GM BTL EXT SCH (07:42)
[2020-11-19] MEDS: FUROSEMIDE 40 MG TAB PO SCH (07:46)
[2020-11-19] MEDS ORDERED: INSULIN HUMAN NPH SC SCH (08:10)
[2020-11-19] MEDS: dexAMETHasone 6 MG in SYRINGE 0 ML IV SCH (08:46)
[2020-11-19] MEDS: INSULIN ASPART 100 UNITS/ML 3 ML PEN SC SCH (08:54)
--- NOTE | 2020-11-19 11:53 | Pharmacy Report ---
Pharmacy Glycemic Short Note 2 - Date of Service November 19, 2020 - Glycemic Short BSG Results (Last 24 hours): 11/18/20 11/18/20 11/18/20 16:24 20:23 20:24 POC Glucose 248 H 371 H* 372 H* 11/19/20 11/19/20 11/19/20 04:16 07:30 07:47 POC Glucose 187 H 66 L* 89 11/19/20 11:24 POC Glucose 146 H OUTPATIENT ANTIDIABETIC REGIMEN: * NPH SC 75 units with breakfast, 45 units with dinner * Novolog SC 30 units with breakfast, 15 units with dinner * HbA1c = 8.5% (11/14/20) ASSESSMENT: 11/19: * Fasting hypoglycemia of 66 mg/dL this AM which required 15 grams of CHO to treat but patient was asymptomatic. BSG improved to 89 mg/dL. * Decreased NPH slightly. Still do not believe this is lasting 24 hours and causing fasting hypoglycemia * Will reduce bedtime Novolog parameters even further today. Patient may benefit from uncovered HS snack nightly to help prevent fasting hypoglycemia in the future. * Continues on IV dexamethasone 11/18: * Despite increased NPH dose yesterday morning, patient's trend in postprandial hyperglycemia continued throughout the day * Will increase AM NPH dose further this AM * AM fasting improved with discontinuation of PM NPH so will continue to hold PM dose * Tightened Novolog today given continued upward trend in postprandials likely due to steroids * Continues on IV dexamethasone PLAN FOR INPATIENT GLYCEMIC CONTROL: * Basal insulin - decreased NPH * NPH 95 units SC with breakfast * Bolus insulin - loosened CF/CR at HS * NovoLog per scale ACHS or Q6hrs while NPO * Goal Range: Low 110 mg/dL - High 140 mg/dL * Breakfast, Lunch, Dinner: Correction Factor: 8 mg/dL/unit; Nutritional / Prandial insulin per carb ratio of 1 unit per 2 grams CHO consumed * Bedtime: Correction Factor: 20 mg/dL/unit; Nutritional / Prandial insulin per carb ratio of 1 unit per 7 grams CHO consumed PLAN FOR DISCHARGE: * HbA1c = 8.5% from this admission which is above the goal of less than 8% based on patient's age and comorbidities. * However, this has improved from previous HbA1c of 9.7% earlier this year. * Recommend continuing current outpatient regimen and close follow up with [facility] [place] Endocrinology Office.
[2020-11-19] MEDS ORDERED: INSULIN ASPART 100 UNITS/ML 3 ML PEN SC SCH ×2 (11:55→21:00)
--- NOTE | 2020-11-19 14:45 | Hospitalist Progress Note ---
Date of Service November 19, 2020 Assessment & Plan (1) Acute hypoxemic respiratory failure: (2) COVID-19: Present on admission with SOB and cough CXR showed cardiomegaly with bilateral airspace opacities suggestive of multifocal pneumonia. COVID 19 positive and elevated Lactate on admission She was starting on Remdesivir and Dexamethasone Inflammatory marker trending down with C-reactive protein from 11.6 ->5.6-> 3.85 and ESR from 69 to 67 IV Remdesivir put on hold today due to decrease in renal function Saturated well on RA 2 step exercise done today and pt does not require any oxygen Clinically stable Afib Brief episode of afib yesterday Converted back to NSR after receiving Lopressor 2.5 mg IV x1 Continue Carvedilol 6.25mg PO BID Continue aspirin and plavix Diabetes Hba1c 8.4 on 11/14/20 Pharmacy on board for glycemic management Continue monitor BS CAD status post stent Continue aspirin, plavix, Coreg and statin. Currently asymptomatic. CHF Continue Coreg and home Lasix and lisinopril. Last echo showed Ejection fraction of 40% to 45%. Continue PO lasix Chronic kidney disease stage III: Baseline creatinine of 1.5-1.7, close to baseline. Creatinine improved to 1.5 lasix and remdesivir were on hold Lasix resume this morning Hypothyroidism Continue Synthroid. Hypertension: Continue lisinopril, Coreg. History of asthma On albuterol p.r.n. Obesity BMI 46.2 Counseling on weight loss DVT px on heparin subq CODE STATUS DNR Admission and Anticipated Discharge Date Admission Date: November 14, 2020 Subjective Pt was seen and examined for follow up of SOB due to COVID 19 Sitting in bed with no distress Pt said that she is feeling much better saturated on RA with no distress She said that her cough is almost gone She had 2 step exercise done and did not require any oxygen Denies any chest pain, palpitation and fever Review of Systems Review of Systems: All systems reviewed & are unremarkable except as noted in Subjective Physical Exam Physical Exam: General- No acute distress Head- atraumatic Eyes- PERRL, EOMI, ENT- oropharynx clear Neck- supple, no JVD Lungs- Diminished BS Heart- regular rhythm; no murmur Abdomen- normal bowel sounds, soft, nontender Extremities- no calf tenderness Neuro- alert, oriented x 3; PERRL, EOMI; no facial palsy; no dysarthria Skin- warm & dry Results & Data Results & Data ([facility]) Vital Signs (Past 12 Hours) Vital Signs Temp Pulse Pulse Pulse Pulse Resp Resp 11/19/20 14:16 36.7 C 55 L 20 11/19/20 13:26 77 70 63 22 11/19/20 11:22 36.7 C 55 L 20 11/19/20 08:01 11/19/20 07:32 36.5 C 51 L 18 11/19/20 04:10 93 H 90 H Resp Resp BP BP Pulse Ox Pulse Ox Pulse Ox 11/19/20 14:16 112/80 101/52 L 93 11/19/20 13:26 20 20 90 92 11/19/20 11:22 101/52 L 93 11/19/20 08:01 94 11/19/20 07:32 126/59 L 94 11/19/20 04:10 137/71 94 Pulse Ox 11/19/20 14:16 11/19/20 13:26 93 11/19/20 11:22 11/19/20 08:01 11/19/20 07:32 11/19/20 04:10
--- NOTE | 2020-11-20 08:21 | Discharge Summary ---
Date of Service November 19, 2020 Admission HPI Per Admitting Provider CHIEF COMPLAINT: Cough and shortness of breath. HISTORY OF PRESENT ILLNESS: This is a 75-year-old female with past medical history significant for type 2 diabetes; hypothyroidism; hyperlipidemia; asthma mild persistent; history of CAD; history of chronic systolic CHF; chronic kidney disease stage III; history of GERD; history of obesity; history of status post cardiac stent placement. The patient lives with her sister. Ambulates without any support, blind in her right eye. She got COVID shot about a week ago. Since last 3-4 days, she is having cough and progressively getting more short of breath bringing whitish phlegm. Denies any fever. No loss of sense of smell or taste. Appetite is okay. No headache, no abdominal pain, no diarrhea, no blurred vision, no earache, no runny nose, no sore throat, no dysphagia. Normal bladder movements. Says she was afebrile at home, but in the ER she has had temperature spike of 38.6 and she was saturating 76% on room air and on 4 liters she is saturating okay. Currently resting comfortably. Able to speak in full sentences, somewhat hard to hear, and COVID came back as positive. Chest x-ray is showing multifocal pneumonia. Admission Exam Per Admitting Provider GENERAL: The patient is obese, not in acute distress. VITAL SIGNS: Temperature currently 37.8, pulse 57, respiratory rate 21, blood pressure 117/71, oxygen 97% on 4 liters. HEENT: Pupils equal, round. Blind in right eye. Head atraumatic. No facial droop. NECK: No JVD, no neck masses. CARDIOVASCULAR: S1, S2 heard, regular rate and rhythm, no murmur, no gallop. RESPIRATORY SYSTEM: Normal AP diameter. No accessory muscle use. No wheezing, no crackles. ABDOMEN: Soft, bowel sounds present, nontender. No distention. CENTRAL NERVOUS SYSTEM: Cranial nerves II-XII grossly intact, nonfocal. EXTREMITIES: Bilateral pedal edema present, no erythema seen. Principal Diagnosis (1) Acute hypoxemic respiratory failure: (2) COVID-19: (3) Atrial fibrillation (4) Diabetes (5) history of heart failure (6) Chronic kidney disease stage III: (7) Hypothyroidism (8) Hypertension: Discharge Exam General- No acute distress Head- atraumatic Eyes- PERRL, EOMI, ENT- oropharynx clear Neck- supple, no JVD Lungs- Diminished BS Heart- regular rhythm; no murmur Abdomen- normal bowel sounds, soft, nontender Extremities- no calf tenderness Neuro- alert, oriented x 3; PERRL, EOMI; no facial palsy; no dysarthria Skin- warm & dry Discharge Data Allergies Allergy/AdvReac Type Severity Reaction Status Date / Time adhesive Allergy Mild Band Aid - Verified 11/18/20 18:50 Rash Sulfa (Sulfonamide Allergy Mild nausea/vomi Verified 11/13/20 22:25 Antibiotics) ting Consultations 11/13/20 22:38 ED Decision to Admit Stat Ordered Studies XR chest 1V portable HISTORY: 75 years-old Female SEPSIS acute cough with shortness of breath COMPARISON: Chest radiograph 11/19/2017 TECHNIQUE: Portable AP view of the chest FINDINGS: Moderate cardiomegaly. Patchy multifocal airspace opacities. Equivocal trace pleural effusions. No pneumothorax. Degenerative changes of the shoulders and spine. IMPRESSION: Cardiomegaly with bilateral airspace opacities suggestive of multifocal pneumonia. ACT 112: Negative or not required by law. The above report was generated using voice recognition software. It may contain grammatical, syntax or spelling errors. Electronically signed by: Ruslan Bragg M.D. 11/14/2020 8:23 AM Dictated: 11/14/20821Transcribed: 11/14/20821 Hospital Course (1) Acute hypoxemic respiratory failure: (2) COVID-19: Present on admission with SOB and cough CXR showed cardiomegaly with bilateral airspace opacities suggestive of multifocal pneumonia. COVID 19 positive and elevated Lactate on admission She was starting on Remdesivir and Dexamethasone Inflammatory marker trending down with C-reactive protein from 11.6 ->5.6-> 3.85 and ESR from 69 to 67 IV Remdesivir put on hold today due to decrease in renal function Saturated well on RA 2 step exercise done today and pt does not require any oxygen Clinically stable Afib Brief episode of afib yesterday Converted back to NSR after receiving Lopressor 2.5 mg IV x1 Continue Carvedilol 6.25mg PO BID Continue aspirin and plavix Diabetes Hba1c 8.4 on 11/14/20 Pharmacy on board for glycemic management Continue monitor BS CAD status post stent Continue aspirin, plavix, Coreg and statin. Currently asymptomatic. CHF Continue Coreg and home Lasix and lisinopril. Last echo showed Ejection fraction of 40% to 45%. Continue PO lasix Chronic kidney disease stage III: Baseline creatinine of 1.5-1.7, close to baseline. Creatinine improved to 1.5 lasix and remdesivir were on hold Lasix resume this morning Hypothyroidism Continue Synthroid. Hypertension: Continue lisinopril, Coreg. History of asthma On albuterol p.r.n. Obesity BMI 46.2 Counseling on weight loss DVT px on heparin subq CODE STATUS DNR Total Time Total Time Spent Total Time Spent (In Minutes): 35 minutes Total Time Includes: Examination of the Patient, Discharge Planning, Medication Reconciliation, Communication With Other Providers and Other Discharge Plan Discharge Items Patient Disposition: Home - Self-Care Reason For Visit: COUGH,SOB Discharge Diagnosis: (1) Acute hypoxemic respiratory failure: (2) COVID-19: (3) Atrial fibrillation (4) Diabetes (5) history of heart failure (6) Chronic kidney disease stage III: (7) Hypothyroidism (8) Hypertension: Activity: Resume your previous activity Non-emergency contact: Primary Care Provider Call non-emergency contact if: you have any medication questions and your symptoms worsen Follow-up/Referrals: Mai Judge MD [Primary Care Provider] - (Date & Time 11/24/2020 2:20 PM Provider Mai Judge MD Department [facility] PLEASE NOTE THAT THIS IS A TELEPHONE APPOINTMENT. YOUR PROVIDER WILL CALL YOU AT THE APPOINTMENT TIME. IF YOU HAVE ANY QUESTIONS REGARDING THIS APPOINTMENT, PLEASE CALL ) Diet: Carb Consistent or DM2 Addtl Attending Provider Instructions: Follow up with your primary care provider Dr. Judge on 11/24/2020 at 2:20 PM at the [facility] (PLEASE NOTE THAT THIS IS A TELEPHONE APPOINTMENT) Continue to wear mask and contact isolation Continue monitor your blood sugar Fall precaution Home Isolation COVID-19 Instructions The following information about Home Isolation is from the CDC Website: https://www.cdc.gov/coronavirus/2019-ncov/hcp/pmewefoj-griyude-xlkouw.html Stay home except to get medical care People who are mildly ill with COVID-19 are able to isolate at home during their illness. You should restrict activities outside your home, except for getting medical care. Do not go to work, school, or public areas. Avoid using public transportation, ride-sharing, or taxis. Separate yourself from other people and animals in your home People: As much as possible, you should stay in a specific room and away from other people in your home. Also, you should use a separate bathroom, if available. Animals: You should restrict contact with pets and other animals while you are sick with COVID-19, just like you would around other people. Although there have not been reports of pets or other animals becoming sick with COVID-19, it is still recommended that people sick with COVID-19 limit contact with animals until more information is known about the virus. When possible, have another member of your household care for your animals while you are sick. If you are sick with COVID-19, avoid contact with your pet, including petting, snuggling, being kissed or licked, and sharing food. If you must care for your pet or be around animals while you are sick, wash your hands before and after you interact with pets and wear a face mask. Call ahead before visiting your doctor If you have a medical appointment, call the healthcare provider and tell them that you have or may have COVID-19. This will help the healthcare providers office take steps to keep other people from getting infected or exposed. Wear a face mask You should wear a face mask when you are around other people (e.g., sharing a room or vehicle) or pets and before you enter a healthcare providers office. If you are not able to wear a face mask (for example, because it causes trouble breathing), then people who live with you should not stay in the same room with you, or they should wear a face mask if they enter your room. Cover your coughs and sneezes Cover your mouth and nose with a tissue when you cough or sneeze. Throw used tissues in a lined trash can. Immediately wash your hands with soap and water for at least 20 seconds or, if soap and water are not available, clean your hands with an alcohol-based hand parts chaser that contains at least 60% alcohol. Clean your hands often Wash your hands often with soap and water for at least 20 seconds, especially after blowing your nose, coughing, or sneezing; going to the bathroom; and before eating or preparing food. If soap and water are not readily available, use an alcohol-based hand parts chaser with at least 60% alcohol, covering all surfaces of your hands and rubbing them together until they feel dry. Soap and water are the best option if hands are visibly dirty. Avoid touching your eyes, nose, and mouth with unwashed hands. Avoid sharing personal household items You should not share dishes, drinking glasses, cups, eating utensils, towels, or bedding with other people or pets in your home. After using these items, they should be washed thoroughly with soap and water. Clean all high-touch surfaces everyday High touch surfaces include counters, tabletops, doorknobs, bathroom fixtures, toilets, phones, keyboards, tablets, and bedside tables. Also, clean any surfaces that may have blood, stool, or body fluids on them. Use a household cleaning spray or wipe, according to the label instructions. Labels contain instructions for safe and effective use of the cleaning product including precautions you should take when applying the product, such as wearing gloves and making sure you have good ventilation during use of the product. Monitor your symptoms Seek prompt medical attention if your illness is worsening (e.g., difficulty breathing).Beforeseeking care, call your healthcare provider and tell them that you have, or are being evaluated for, COVID-19. Put on a face mask before you enter the facility. These steps will help the healthcare providers office to keep other people in the office or waiting room from getting infected or exposed. Ask your healthcare provider to call the local or [facility] health department. Persons who are placed under active monitoring or facilitated self- monitoring should follow instructions provided by their local health department or occupational health professionals, as appropriate. When working with your [facility] health department check their available hours. If you have a medical emergency and need to call 911, notify the dispatch personnel that you have, or are being evaluated for COVID-19. If possible, put on a face mask before emergency medical services arrive. Discontinuing home isolation Patients with confirmed COVID-19 should remain under home isolation precautions until the risk of secondary transmission to others is thought to be low. The decision to discontinue home isolation precautions should be made on a [id number] basis, in consultation with healthcare providers and state and local health departments. Coronavirus disease 2019 (COVID-19) is a virus that causes a respiratory illness. It is caused by a coronavirus called 2019 novel coronavirus (2019- nCoV). There are many types of coronavirus. Coronaviruses are a very common cause of bronchitis. They may sometimes cause lung infection(pneumonia). Symptoms can range from mild to severe respir atory illness. These viruses are also foundin some animals. COVID-19 was first found in people in [facility], in late 2018. In 2020, several cases of COVID- 19 have been confirmed in the [place] Public health officials are working to find the source. How the virus spreads is not yet fully known. It may be spread through droplets of fluid that a person coughs or sneezes into the air. It may be spread if you touch a surface with virus on it, such as a handle or object, and then touch your mouth. What are the symptoms of COVID-19? Some people have no symptoms or mild symptoms. Symptoms may appear 2 to 14 days after contact with the virus. Symptoms can include: Fever Coughing Trouble breathing What are possible complications from COVID-19? In many cases, this virus can cause infection (pneumonia) in both lungs. In some cases, this can cause . How is COVID-19 diagnosed? Your healthcare provider will ask about your symptoms. He or she will also ask about your recent travel and contact with sick people. Testing for the virus is only done through the CDC. If yourhealthcare provider thinks you may have COVID- 19, he or she will work with your local health department and the CDC on testing. Follow all instructions from your healthcare provider. COVID-19 is diagnosed by: Nasal and throat swab. A cotton-tipped swab is wiped inside your nose or throat. This is done to check for viruses in your nasal mucus. Sputum culture. A small sample of mucus coughed from your lungs (sputum) is collected if you have a cough. It is checked for the virus. How is COVID-19 treated? There is currently no medicine to treat the virus. Treatment is done to help your body while it fights the virus. This is known as supportive care. Supp ortive care may include: Pain medicine. These include acetaminophen and ibuprofen. They are used to help ease pain and reduce fever. Bed rest. This helps your body fight the illness. For severe illness, you may need to stay in the hospital. Care during severe illness may include: IV (intravenous) fluids.These are given through a vein to help keep your body hydrated. Oxygen. Supplemental oxygen or ventilation with a breathing machine (ventilator) may be given. This is done to keep enough oxygen in your body. Are you at risk for COVID-19? If youve been to a place where people have been sick with this virus, you are at risk for infection. You are at risk if you: Recently traveled to an affected area Had contact with a sick person who recently traveled to this area Had contact with a person who was diagnosed with COVID-19 How can COVID-19 be prevented? There is no vaccine yet. The best prevention is to not have contact with the virus. The CDC advises that people should not travel to areas where there are COVID-19 outbreaks right now for any reason that is not urgent. To help prevent spreading the infection, wash your hands often, or use an alcohol-basedhand parts chaser. If you are in an area with COVID-19: Wash your hands often. Or use an alcohol-based hand parts chaser often. Only touch your eyes, nose, or mouth with clean hands. Dont have contact with people who are sick. Follow local instructions about being in public. For example, you may be told to not use public transport for a period of time. Stay away from markets that have live or animals. Wash your hands after touching any animals. Don't touch animals that may be sick. Dont share eating or drinking tools with sick people. Dont kiss someone who is sick. Clean surfaces often with disinfectant. If you were in an area with COVID-19 in the last 14 days: Call your healthcare provider. He or she can talk with local health staff to see what action may be needed. Follow all instructions from your provider. Take your temperature every morning and evening for at least 14 days. This is to check for fever. Keep a record of the readings. Keep watch for symptoms of the virus. Tell your provider right away if you have symptoms. If you were in an area with COVID-19 and have a fever or other symptoms: Dont panic. Keep in mind that other illnesses can cause similar symptoms. Stay away from work, school, and public places. Limit physical contact with family members. Don't kiss anyone or share eating or drinking utensils. Clean surfaces you touch with disinfectant. This is to help prevent the virus from spreading. Call your healthcare provider. Explain that you have been exposed to COVID-19 and have symptoms. Do this before going to any hospital. Wait for instructions. Keep in mind that healthcare staff may wear protective equipment such as masks, gowns, gloves, and eye protection. You may be put in a separate room. This is to prevent the possible virus from spreading. Tell the healthcare staff about recent travel. This includes local travel on public transport. Staff may need to find other people you have been in contact with. Follow all instructions the healthcare staff give you. If you have been diagnosed with COVID-19 Follow all instructions from your healthcare provider. Dont leave your home, except to get medical care. Call your healthcare providers office before going. They can prepare and give you instructions. This will help prevent the virus from spreading. Dont go to work, school, or public areas. Dont use public transport or taxis. Stay away from other people in your home. Have them wear face masks around you. Dont share household items or food. Wear a face mask if you can. This includes at home or in a medical facility. Cover your face with a tissue when you cough or sneeze. Throw the tissue away. Wash your hands. Wash your hands often. Caregivers should: Follow all instructions from healthcare staff. Wear a face mask and protective clothing as advised. Wash hands often. Keep track of the sick persons symptoms. Clean surfaces, fabrics, and laundry thoroughly. Keep other people away from the sick person. When to call your healthcare provider Call your healthcare provider: If youve recently traveled and have symptoms If you have been diagnosed with COVID-19 and your symptoms are worse To learn more To find out more about COVID-19, visit the CDC website at www.cdc.gov/coronavirus/2019-ncov/index.html. 6979-04[address] [employer]. [address] [place] [address], [place] [address]. All rights reserved. This information is not intended as a substitute for professional medical care. Always follow your healthcare professional's instructions. This information has been adapted from [employer] Pending Studies at Discharge: No Stand-Alone Forms: My [facility] & Safety, Smoking Cessation Medications and DC Order Prescriptions: Continued (DME) blood-glucose meter [Accu-Chek Guide Glucose Meter] misc See Dose Instructions .ROUTE .MEDSUPPLY Qty: 1 RF: 0 (DME) lancets [Accu-Chek Fastclix Lancet Drum] misc See Dose Instructions .ROUTE .MEDSUPPLY Qty: 102 RF: 3 (DME) pen needle, diabetic [BD Ultra-Fine Esha Pen Needle] 32 gauge x 5/32" needle See Rx Instructions .ROUTE .MEDSUPPLY Qty: 300 RF: 3 (DME) Accu-Chek Guide test strips Strip See Dose Instructions .ROUTE .MEDSUPPLY Qty: 300 RF: 3 aspirin 81 mg tablet,delayed release (DR/EC) 81 mg PO QAM RF: 0 carvedilol 6.25 mg tablet 6.25 mg PO BID Qty: 60 RF: 2 furosemide 40 mg tablet 40 mg PO QAM RF: 0 loratadine 10 mg tablet 10 mg PO QAM RF: 0 benzonatate 100 mg capsule 100 mg PO TID PRN (Reason: Cough) RF: 0 Glucagon Emergency Kit (human) 1 mg recon soln 1 mg IM Q20M PRN (Reason: Hypoglycemia) RF: 0 albuterol sulfate [Ventolin HFA] 90 mcg/actuation HFA aerosol inhaler 2 puffs INH QID PRN (Reason: Shortness Of Breath) RF: 0 lisinopril 2.5 mg tablet 5 mg PO QAM RF: 0 cholecalciferol (vitamin D3) 25 mcg (1,000 unit) capsule 25 mcg PO DAILY RF: 0 famotidine [Pepcid] 40 mg tablet 40 mg PO DAILY RF: 0 omega-3 fatty acids-fish oil [Fish Oil] 360-1,200 mg capsule 1 cap PO DAILY RF: 0 ferrous sulfate 325 mg (65 mg iron) tablet 325 mg PO DAILY RF: 0 (DME) insulin syringe-needle U-100 [BD Insulin Syringe Ultra-Fine] 1 mL 30 gauge x 1/2" syringe See Rx Instructions .ROUTE .MEDSUPPLY Qty: 10 RF: 0 insulin aspart U-100 [Novolog Flexpen U-100 Insulin] 100 unit/mL (3 mL) insulin pen 40 unit SQ DIRECTED RF: 0 Novolin N NPH U-100 Insulin 100 unit/mL suspension 45 - 75 unit SUBCUT AMPM RF: 0 levothyroxine 175 mcg Tablet 175 mcg PO QAM RF: 0 triamcinolone acetonide 0.1 % Cream 1 applic TOPICAL BID PRN (Reason: Rash) RF: 0 nystatin 100,000 unit/gram Cream 1 applic TOPICAL DAILY PRN (Reason: Rash) RF: 0 acyclovir 5 % Cream 1 applic TOPICAL UD PRN (Reason: Cold Sores) RF: 0 atorvastatin 40 mg tablet 40 mg PO QAM RF: 0 clopidogrel 75 mg tablet 75 mg PO QAM RF: 0 diclofenac sodium 1 % gel 2 - 4 g TOP QID PRN (Reason: joint pain) RF: 0 Discharge Orders: Discharge Order (Routine); Ordered 11/19/20 Ordered By: Jevon Robbins/Other Patient Handouts: Managing Type 2 Diabetes, Managing Diabetes: The A1C Test Admission Data Admit Date/Time: 11/14/20 01:17 Attending Provider: Jevon Simons Admit Provider: Sreedhar Montana Primary Care Provider: Mai Judge Other Providers: Sreedhar Montana ; Radha Mcwilliams ; Kandi Hayes Other Interventions: Discharge Summary Assessment (RN) Last Done: 11/19/20 14:16
--- NOTE | 2020-12-01 07:40 | Coding Query ---
CODING QUERY To promote full compliance with coding requirements relating to patient care, provider participation is requested in all cases of him coder uncertainty. Please assist us with the question(s) below: Coding Question(s): H&P states patient has "COVID Pneumonia." "COVID-19" and "Pneumonia" are both documented separately on your documentation. Please clarify below: (x ) Patient with Pneumonia due to COVID-19 ( ) Patient with Pneumonia, NOS and Patient with COVID-19 ( ) Other Please Explain: Thank you Donovan Ribera Principal Diagnosis: "that condition established after study, to be chiefly responsible for occasioning the admission of the patient to the hospital for care." Co-Existing Principal Diagnosis: "when two or more diagnoses equally meet the criteria for principal diagnosis as determined by the circumstances of admission, diagnostic work up, and/or therapy provided, and the Alphabetic Index, Tabular List, or another coding guideline does not provide sequencing direction, any one of the diagnoses may be sequenced first." "When the physician has documented what appears to be a current diagnosis in the body of the record, but has not included the diagnosis in the final diagnostic statement, the physician should be asked whether the diagnosis should be added." (Source [facility]oding [facility] 2 QTR90. p3-4) FLORESITA
== END 2020-11-19 15:38 | disposition home or self-care (01) | DRG 177 ==
LOC: ED 20:07 → SUATTDRO 11-14 01:17 → 2S 11-14 01:17 → 2E 11-18 18:29

== ENCOUNTER 2020-11-20 23:40 | Inpatient (IN) ==
[2020-11-20] MEDS ORDERED: DEXTROSE 50% 50 ML SYRINGE IV ONE (23:56)
[2020-11-21] MEDS ORDERED: DEXTROSE 50% 50 ML SYRINGE IV ONE
[2020-11-21] MEDS ORDERED: dexAMETHasone**PF** 10 MG/ML VIAL IV ONE (00:12)
--- NOTE | 2020-11-21 00:22 | Emergency Department Note ---
ED Visit Note Physician Evaluation Note: I have personally evaluated and examined this patient. I agree with assessment and plan of Amina Israel PA-C. 75 yr old female just out of hospital secondary to covid 19 multifocal pneumonia. She arrives altered/diaphoretic with significant hypoglycemia which resolved rapidly with D50. Still quite weak and is clearly not doing well at home at this time. Bryan Waddell MD
--- NOTE | 2020-11-21 00:33 | Emergency Department Note ---
History of Present Illness General Chief complaint: Respiratory Problems Stated complaint: HAVING TROUBLE BREATHING,AND GETTING AROUND Time Seen by Provider: 11/20/20 23:56 History of Present Illness This 75 yo presents to the ER complaining of altered mental status who was just discharged with Covid pneumonia yesterday Location: General Quality: Confused Severity: Moderate Duration: Today Timing: Today Context: Patient was confused and son brought her in Modifying factors: better with nothing; worse with activity Patient's blood sugar was low. She was given dextrose and became alert. Patient states she took her normal dose of insulin tonight. Patient states she is more weak and short of breath since being discharged yesterday with Covid pneumonia. Patient complains of cough, congestion, weakness and feeling fatigued. Patient denies chest pain, abdominal pain, vomiting, diarrhea. No change in her insulin dose. She did eat dinner. Home Medications Medication Instructions Recorded Confirmed Type albuterol sulfate 90 mcg/actuation 2 puffs INH QID PRN 02/22/19 11/21/20 History aerosol inhaler aspirin 81 mg tablet,delayed 81 mg PO QAM 02/22/19 11/21/20 History release benzonatate 100 mg capsule 100 mg PO TID PRN 02/22/19 11/21/20 History carvedilol 6.25 mg tablet 6.25 mg PO BID #60 tab 02/22/19 11/21/20 Rx furosemide 40 mg tablet 40 mg PO QAM 02/22/19 11/21/20 History glucagon (human recombinant) 1 mg 1 mg IM Q20M PRN 02/22/19 11/21/20 History solution for injection loratadine 10 mg tablet 10 mg PO QAM 02/22/19 11/21/20 History Accu-Chek Fastclix Lancet Drum #102 ea NS 03/10/19 10/16/20 Rx Accu-Chek Guide Glucose Meter #1 ea NS 03/10/19 10/16/20 Rx acyclovir 1 applic TOPICAL UD PRN 04/14/19 11/21/20 History atorvastatin 40 mg PO QAM 04/14/19 11/21/20 History clopidogrel 75 mg PO QAM 04/14/19 11/21/20 History diclofenac sodium 2 - 4 g TOP QID PRN 04/14/19 11/21/20 History levothyroxine 175 mcg PO QAM 04/14/19 11/21/20 History nystatin 1 applic TOPICAL DAILY PRN 04/14/19 11/21/20 History triamcinolone acetonide 1 applic TOPICAL BID PRN 04/14/19 11/21/20 History BD Ultra-Fine Esha Pen Needle 32 #300 ea NS 09/15/19 10/16/20 Rx gauge x 5/32" Accu-Chek Guide test strips #300 ea NS 09/12/20 10/16/20 Rx cholecalciferol (vitamin D3) 25 25 mcg PO DAILY 10/16/20 11/21/20 History mcg (1,000 unit) capsule famotidine 40 mg tablet 40 mg PO DAILY 10/16/20 11/21/20 History insulin NPH isoph U-100 human 100 45 - 75 unit SUBCUT AMPM ml 10/16/20 11/21/20 History unit/mL subcutaneous suspension insulin aspart U-100 100 unit/mL 40 unit SQ DIRECTED ml 10/16/20 11/21/20 History (3 mL) subcutaneous pen insulin syringe-needle U-100 1 mL #10 ea 10/16/20 10/16/20 History 30 gauge x 1/2" lisinopril 2.5 mg tablet 5 mg PO QAM tab 10/16/20 11/21/20 History omega-3 fatty acids-fish oil 360 1 cap PO DAILY 10/16/20 11/21/20 History mg-1,200 mg capsule Allergies Allergy/AdvReac Type Severity Reaction Status Date / Time adhesive Allergy Mild Band Aid - Verified 11/21/20 00:35 Rash Sulfa (Sulfonamide Allergy Mild nausea/vomi Verified 11/21/20 00:35 Antibiotics) ting Past Med/Surg History Medical History Acute hypoxemic respiratory failure Anemia Anemia Asthma inhaler prn Chronic kidney disease follows with Dr. Bliss Diabetes mellitus with microalbuminuria Diabetes mellitus, type 2 Diabetes type 2, uncontrolled GERD (gastroesophageal reflux disease) Hyperlipidemia Hypertension Hypocalcemia Hypoparathyroidism Hypothyroidism Morbid obesity with BMI of 40.0-44.9, adult Multifocal pneumonia Myocardial Infarction 2003--follows with Dr. Vallejo On anticoagulant therapy plavix daily Osteoarthritis Surgical History History of bilateral tubal ligation History of cardiac cath total of 4---last 12/[address] [facility] with Dr. Vallejo History of cholecystectomy History of heart artery stent x4 total--last 12/[address] [facility]--pt unsure what kind, requested info be obtained from Dr. Vallejo's office History of right cataract extraction History of thyroidectomy History of tooth extraction all teeth removed Family History Mother Family history of diabetes mellitus Cardiovascular disease Sister Family history of diabetes mellitus Other No family history of adverse response to anesthesia Social History Smoking Status: Former smoker Tobacco Type: Cigarettes Second Hand Exposure: Yes (sister smokes); Hx Alcohol Use: No Hx Substance Use: No Preferred Language: Divehi Communication Ability: Effective Geophysical E Logger Required: No Beliefs That Will Affect Care: None Current Living Situation: Family Current Living Situation Comment: lives with sister Feels Safe at Home: Yes Assistive Devices: Oxygen - Continuous Review of Systems A total of 10 systems reviewed and were otherwise negative Physical Exam Vital Signs Vital Signs - 24 hr 11/20/20 23:40 11/20/20 23:46 11/21/20 00:00 Temperature 36.6 C 37.0 C Temperature Source Temporal Artery Scan Oral Pulse Rate 75 Pulse Rate from SpO2 Sensor Respiratory Rate 16 22 Respiratory Effort / Characteristics Non-Labored Non-Labored Respiratory Depth Normal Normal Normal Respiratory Pattern Regular Blood Pressure 143/78 H Blood Pressure [Right Arm] 118/39 L Blood Pressure Mean 99 Blood Pressure Mean [Right Arm] 65 Blood Pressure Position Sitting Blood Pressure Position [Right Arm] Sitting Pulse Oximetry 90 94 Oxygen Delivery Method Room Air Room Air Room Air Oxygen Flow Rate Sepsis Recent Fever Within 48 Hours No Sepsis New/Unexplained Change in Mental Status No Sepsis Action Taken by Nursing No Action Required 11/21/20 00:16 11/21/20 00:20 11/21/20 00:30 Temperature Temperature Source Pulse Rate 69 68 71 Pulse Rate from SpO2 Sensor 69 68 71 Respiratory Rate 21 24 25 H Respiratory Effort / Characteristics Non-Labored Respiratory Depth Respiratory Pattern Blood Pressure 118/39 L 146/67 H Blood Pressure [Right Arm] Blood Pressure Mean 65 93 Blood Pressure Mean [Right Arm] Blood Pressure Position Blood Pressure Position [Right Arm] Pulse Oximetry 95 95 94 Oxygen Delivery Method Room Air Oxygen Flow Rate Sepsis Recent Fever Within 48 Hours Sepsis New/Unexplained Change in Mental Status Sepsis Action Taken by Nursing 11/21/20 00:31 11/21/20 00:45 11/21/20 00:46 Temperature Temperature Source Pulse Rate 71 67 66 Pulse Rate from SpO2 Sensor 70 68 66 Respiratory Rate 25 H 25 H 27 H Respiratory Effort / Characteristics Respiratory Depth Respiratory Pattern Blood Pressure 146/62 H Blood Pressure [Right Arm] Blood Pressure Mean 90 Blood Pressure Mean [Right Arm] Blood Pressure Position Blood Pressure Position [Right Arm] Pulse Oximetry 93 92 93 Oxygen Delivery Method Oxygen Flow Rate Sepsis Recent Fever Within 48 Hours Sepsis New/Unexplained Change in Mental Status Sepsis Action Taken by Nursing 11/21/20 01:00 Temperature Temperature Source Pulse Rate 69 Pulse Rate from SpO2 Sensor 69 Respiratory Rate 30 H Respiratory Effort / Characteristics Non-Labored Respiratory Depth Respiratory Pattern Blood Pressure Blood Pressure [Right Arm] Blood Pressure Mean Blood Pressure Mean [Right Arm] Blood Pressure Position Blood Pressure Position [Right Arm] Pulse Oximetry 93 Oxygen Delivery Method Room Air Oxygen Flow Rate 94 Sepsis Recent Fever Within 48 Hours Sepsis New/Unexplained Change in Mental Status Sepsis Action Taken by Nursing VITALS: Vitals are noted on the nurse's note and reviewed by myself. Vital sign s stable. GENERAL: Confused diaphoretic female, and improved greatly after given dextrose for the hypoglycemia in acute distress sats 90% SKIN: The skin was without rashes, erythema, edema, or bruising. There is no tenting of the skin. Capillary reflex less than 2 seconds. HEAD: Normocephalic atraumatic. EARS: External auditory canals clear, tympanic membranes pearly patrick without erythema or effusion bilaterally. EYES: Pupils equal round and reactive to light and accommodation. Conjunctivae without injection, sclerae without icterus. Extraocular movements intact. NOSE: Patent, turbinates without inflammation or discharge. No sinus tenderness. MOUTH: Mucous membranes moist. Pharynx without erythema or exudate. Uvula midline. Airway patent. Tongue does not deviate. NECK: Supple without nuchal rigidity. No lymphadenopathy. No thyromegaly. Cervical spine is nontender. No JVD. HEART: Regular rate and rhythm LUNGS: Mild diffuse end expiratory wheezes, No retractions or accessory muscle use. ABDOMEN: Positive bowel sounds x 4. Normal tympanic percussion. Soft, non tender, without masses or organomegaly. Clinton sign negative. No guarding or rebound tenderness. No CVA tenderness MUSCULOSKELETAL: No muscle atrophy, erythema, noted. NEURO: Patient was alert and oriented to person place and time after given dextrose. Normal sensation to light and sharp touch. No focal neurological deficits. Course Administered Medications Discontinued Medications Dexamethasone Sodium Phosphate (DexamethasonePf 10 Mg/Ml Vial) 6 mg IV NOW ONE Stop: 11/21/20 00:13 Last Admin: 11/21/20 00:21 Dose: 6 mg Documented by: [id number] Dextrose (Dextrose 50% 50 Ml Syringe) Confirm Administered Dose 50 ml IV .STK- MED ONE Stop: 11/20/20 23:57 Last Admin: 11/21/20 00:01 Dose: 50 ml Documented by: [id number] Dextrose (Dextrose 50% 50 Ml Syringe) 50 ml IV NOW ONE Stop: 11/21/20 00:01 Last Admin: 11/21/20 00:14 Dose: Not Given Documented by: [id number] Piperacillin Sod/Tazobactam Sod (Zosyn) 4.5 gm in 120 mls @ 240 mls/hr IV NOW ONE Stop: 11/21/20 01:33 Last Admin: 11/21/20 01:24 Dose: 240 mls/hr Documented by: [id number] Medical Decision Making Medical Records Attestation: I reviewed the patient's medical records. Home Medications Current Medication List: was personally reviewed by me Laboratory Data Attestation: I reviewed the patient's lab results. Result diagrams: 11/21/20 00:00 11/21/20 00:00 Lab Results 11/20/20 11/21/20 11/21/20 Range/Units 23:55 00:00 00:00 WBC 23.41 H (4.8-10.8) K/uL RBC 4.39 (4.2-5.4) M/uL Hgb 11.6 L (12.0-16.0) g/dL Hct 35.7 L (37-47) % MCV 81.3 (80-100) fL MCH 26.4 (25-34) pg MCHC 32.5 (32-36) g/dL RDW Std Deviation 50.9 H (36.4-46.3) fL RDW Coeff of Man 17.1 H (11.5-14.5) % Plt Count 630 H (130-400) K/uL MPV 9.1 (7.4-10.4) fL Immature Gran % (Auto) 9.7 % Neut % (Auto) 63.1 % Lymph % (Auto) 15.2 % [place] % (Auto) 8.6 % Eos % (Auto) 2.8 % Baso % (Auto) 0.6 % Neut # (Auto) 14.75 H (1.4-6.5) K/uL Lymph # (Auto) 3.56 H (1.2-3.4) K/uL [place] # (Auto) 2.01 H (0.11-0.59) K/uL Eos # (Auto) 0.66 H (0-0.5) K/uL Baso # (Auto) 0.15 (0-0.2) K/uL Immature Gran # (Auto) 2.28 H (0.00-0.02) K/uL Absolute Nucleated RBC 0.03 H (0-0) K/uL Nucleated RBC % (auto) 0.1 % PT 10.4 (9.0-12.0) Seconds INR 1.0 (0.9-1.1) APTT 21.5 (21.0-31.0) Seconds PTT Ratio 0.8 VBG pH (7.36-7.41) VBG pCO2 (38-50) mmHg VBG pO2 mmHg VBG HCO3 mmol/L VBG O2 Saturation % VBG Base Excess mEq/L Sodium (136-145) mmol/L Potassium (3.5-5.1) mmol/L Chloride (98-107) mmol/L Carbon Dioxide (21-32) mmol/L Anion Gap (3-11) BUN (7-18) mg/dl Creatinine (0.6-1.2) mg/dl Est Cr Clr Drug Dosing ml/min Est GFR ( Amer) Est GFR (Non-Af Amer) BUN/Creatinine Ratio (10-20) Glucose (70-99) mg/dl POC Glucose 39 L* (70-99) mg/dl Lactate (0.4-2.0) mmol/L Calcium (8.5-10.1) mg/dl Magnesium (1.8-2.4) mg/dl Total Bilirubin (0.2-1) mg/dl AST (15-37) U/L ALT (12-78) U/L Alkaline Phosphatase (45-117) U/L Ammonia (11-32) umol/L Troponin I (0-0.045) ng/ml Total Protein (6.4-8.2) gm/dl Albumin (3.4-5.0) gm/dl Globulin (2.5-4.0) gm/dl Albumin/Globulin Ratio (0.9-2) Procalcitonin (0-0.5) ng/ml 11/21/20 11/21/20 11/21/20 Range/Units 00:00 00:00 00:00 WBC (4.8-10.8) K/uL RBC (4.2-5.4) M/uL Hgb (12.0-16.0) g/dL Hct (37-47) % MCV (80-100) fL MCH (25-34) pg MCHC (32-36) g/dL RDW Std Deviation (36.4-46.3) fL RDW Coeff of Man (11.5-14.5) % Plt Count (130-400) K/uL MPV (7.4-10.4) fL Immature Gran % (Auto) % Neut % (Auto) % Lymph % (Auto) % [place] % (Auto) % Eos % (Auto) % Baso % (Auto) % Neut # (Auto) (1.4-6.5) K/uL Lymph # (Auto) (1.2-3.4) K/uL [place] # (Auto) (0.11-0.59) K/uL Eos # (Auto) (0-0.5) K/uL Baso # (Auto) (0-0.2) K/uL Immature Gran # (Auto) (0.00-0.02) K/uL Absolute Nucleated RBC (0-0) K/uL Nucleated RBC % (auto) % PT (9.0-12.0) Seconds INR (0.9-1.1) APTT (21.0-31.0) Seconds PTT Ratio VBG pH (7.36-7.41) VBG pCO2 (38-50) mmHg VBG pO2 mmHg VBG HCO3 mmol/L VBG O2 Saturation % VBG Base Excess mEq/L Sodium 143 (136-145) mmol/L Potassium 4.9 (3.5-5.1) mmol/L Chloride 114 H (98-107) mmol/L Carbon Dioxide 23 (21-32) mmol/L Anion Gap 6.0 (3-11) BUN 51 H (7-18) mg/dl Creatinine 1.36 H (0.6-1.2) mg/dl Est Cr Clr Drug Dosing 44.0 ml/min Est GFR ( Amer) 43.7 Est GFR (Non-Af Amer) 37.7 BUN/Creatinine Ratio 37.7 H (10-20) Glucose 36 L* (70-99) mg/dl POC Glucose (70-99) mg/dl Lactate 0.9 (0.4-2.0) mmol/L Calcium 8.9 (8.5-10.1) mg/dl Magnesium 2.2 (1.8-2.4) mg/dl Total Bilirubin 0.6 (0.2-1) mg/dl AST 26 (15-37) U/L ALT 41 (12-78) U/L Alkaline Phosphatase 141 H (45-117) U/L Ammonia (11-32) umol/L Troponin I < 0.015 (0-0.045) ng/ml Total Protein 7.2 (6.4-8.2) gm/dl Albumin 2.7 L (3.4-5.0) gm/dl Globulin 4.5 H (2.5-4.0) gm/dl Albumin/Globulin Ratio 0.6 L (0.9-2) Procalcitonin < 0.05 (0-0.5) ng/ml 11/21/20 11/21/20 11/21/20 Range/Units 00:07 00:38 01:04 WBC (4.8-10.8) K/uL RBC (4.2-5.4) M/uL Hgb (12.0-16.0) g/dL Hct (37-47) % MCV (80-100) fL MCH (25-34) pg MCHC (32-36) g/dL RDW Std Deviation (36.4-46.3) fL RDW Coeff of Man (11.5-14.5) % Plt Count (130-400) K/uL MPV (7.4-10.4) fL Immature Gran % (Auto) % Neut % (Auto) % Lymph % (Auto) % [place] % (Auto) % Eos % (Auto) % Baso % (Auto) % Neut # (Auto) (1.4-6.5) K/uL Lymph # (Auto) (1.2-3.4) K/uL [place] # (Auto) (0.11-0.59) K/uL Eos # (Auto) (0-0.5) K/uL Baso # (Auto) (0-0.2) K/uL Immature Gran # (Auto) (0.00-0.02) K/uL Absolute Nucleated RBC (0-0) K/uL Nucleated RBC % (auto) % PT (9.0-12.0) Seconds INR (0.9-1.1) APTT (21.0-31.0) Seconds PTT Ratio VBG pH (7.36-7.41) VBG pCO2 (38-50) mmHg VBG pO2 mmHg VBG HCO3 mmol/L VBG O2 Saturation % VBG Base Excess mEq/L Sodium (136-145) mmol/L Potassium (3.5-5.1) mmol/L Chloride (98-107) mmol/L Carbon Dioxide (21-32) mmol/L Anion Gap (3-11) BUN (7-18) mg/dl Creatinine (0.6-1.2) mg/dl Est Cr Clr Drug Dosing ml/min Est GFR ( Amer) Est GFR (Non-Af Amer) BUN/Creatinine Ratio (10-20) Glucose (70-99) mg/dl POC Glucose 219 H 116 H (70-99) mg/dl Lactate (0.4-2.0) mmol/L Calcium (8.5-10.1) mg/dl Magnesium (1.8-2.4) mg/dl Total Bilirubin (0.2-1) mg/dl AST (15-37) U/L ALT (12-78) U/L Alkaline Phosphatase (45-117) U/L Ammonia 28.0 (11-32) umol/L Troponin I (0-0.045) ng/ml Total Protein (6.4-8.2) gm/dl Albumin (3.4-5.0) gm/dl Globulin (2.5-4.0) gm/dl Albumin/Globulin Ratio (0.9-2) Procalcitonin (0-0.5) ng/ml 11/21/20 11/21/20 11/21/20 Range/Units 01:07 01:16 01:26 WBC (4.8-10.8) K/uL RBC (4.2-5.4) M/uL Hgb (12.0-16.0) g/dL Hct (37-47) % MCV (80-100) fL MCH (25-34) pg MCHC (32-36) g/dL RDW Std Deviation (36.4-46.3) fL RDW Coeff of Man (11.5-14.5) % Plt Count (130-400) K/uL MPV (7.4-10.4) fL Immature Gran % (Auto) % Neut % (Auto) % Lymph % (Auto) % [place] % (Auto) % Eos % (Auto) % Baso % (Auto) % Neut # (Auto) (1.4-6.5) K/uL Lymph # (Auto) (1.2-3.4) K/uL [place] # (Auto) (0.11-0.59) K/uL Eos # (Auto) (0-0.5) K/uL Baso # (Auto) (0-0.2) K/uL Immature Gran # (Auto) (0.00-0.02) K/uL Absolute Nucleated RBC (0-0) K/uL Nucleated RBC % (auto) % PT (9.0-12.0) Seconds INR (0.9-1.1) APTT (21.0-31.0) Seconds PTT Ratio VBG pH 7.38 (7.36-7.41) VBG pCO2 40 (38-50) mmHg VBG pO2 29 mmHg VBG HCO3 23 mmol/L VBG O2 Saturation < 60.0 % VBG Base Excess -1.7 mEq/L Sodium (136-145) mmol/L Potassium (3.5-5.1) mmol/L Chloride (98-107) mmol/L Carbon Dioxide (21-32) mmol/L Anion Gap (3-11) BUN (7-18) mg/dl Creatinine (0.6-1.2) mg/dl Est Cr Clr Drug Dosing ml/min Est GFR ( Amer) Est GFR (Non-Af Amer) BUN/Creatinine Ratio (10-20) Glucose (70-99) mg/dl POC Glucose 88 98 (70-99) mg/dl Lactate (0.4-2.0) mmol/L Calcium (8.5-10.1) mg/dl Magnesium (1.8-2.4) mg/dl Total Bilirubin (0.2-1) mg/dl AST (15-37) U/L ALT (12-78) U/L Alkaline Phosphatase (45-117) U/L Ammonia (11-32) umol/L Troponin I (0-0.045) ng/ml Total Protein (6.4-8.2) gm/dl Albumin (3.4-5.0) gm/dl Globulin (2.5-4.0) gm/dl Albumin/Globulin Ratio (0.9-2) Procalcitonin (0-0.5) ng/ml Imaging Data Attestation: I personally reviewed and interpreted this imaging study as follows: MDM Narrative Prior records/ancillary studies reviewed and summarized above. Nursing notes reviewed. Additional history obtained from nursing. The patient's history was concerning for altered mental status. Differential diagnosis: Etiologies such as metabolic, infection, hypoglycemia, electrolyte abnormalities, cardiac sources, intracerebral event, toxicologic, neurologic, as well as others were entertained. Physical examination: As above. ER treatment provided: IV Lock Normal saline hydration. An order was placed for continuous cardiac monitoring. The monitor shows a rate of 60-1 10 with a sinus rhythm. Dextrose, Zosyn, orange juice On reassessment the patients mental status improved. Diagnostics interpretation by me: ECG: Ordered for altered mental status EKG: Normal sinus, normal intervals, no acute ST-T wave changes. Impression normal sinus rhythm interpreted by myself I think arrhythmia is unlikely. EKG shows normal sinus rhythm with no interval abnormalities such as QT prolongation or WPW. There are no findings to suggest Brugada syndrome. Cardiac monitoring in the emergency department reveals no tachycardic or bradycardic dysrhythmia. Hypertrophic cardiomyopathy was considered but there are no clear historical elements pointing toward this. EKG is not suggestive. The QRS voltage is not extremely large and there are no suggestive Q waves. The labs revealed hypoglycemia and improved after giving dextrose Positive Covid from the other day Marked leukocytosis with bandemia, patient was given Zosyn Blood cultures pending Negative lactic acid VBG reviewed. Patient could not tolerate ABG Imaging studies: Chest x-ray with multifocal pneumonia per my interpretation Given the above diagnostic work-up and treatment, this episode appears to be consistent with hypoglycemia and a type II diabetic on insulin and Covid pneumonia who is hypoxic with concerns for bacterial pneumonia. Further treatment will be required. Patient was given dextrose and improved. She was given Decadron and Zosyn. Medicine was consulted. She will be evaluated for admission. I spoke to the patient's son per her request. All questions were answered. Patient is agreeable treatment plan admission. Patient was reassessed multiple times. Blood sugar was monitored closely. Consultation: A consultation was placed with the Dr. Bonilla hospitalist. The case was discussed and diagnostics were reviewed. The patient was evaluated in the ER for further treatment. Impression & Plan Diabetic hypoglycemia, COVID-19 Discharge Plan Visit Data Chief Complaint: Respiratory Problems Stated Complaint: HAVING TROUBLE BREATHING,AND GETTING AROUND ED Provider: Bryan Waddell ED Midlevel Provider: Daina Israel Discharge Problem: Diabetic hypoglycemia, COVID-19 Patient Disposition: Admitted As Inpatient Condition: Fair Forms Stand Alone Forms: My [facility] Prescriptions Prescriptions: No Action (DME) blood-glucose meter [Accu-Chek Guide Glucose Meter] misc See Dose Instructions .ROUTE .MEDSUPPLY Qty: 1 RF: 0 (DME) lancets [Accu-Chek Fastclix Lancet Drum] misc See Dose Instructions .ROUTE .MEDSUPPLY Qty: 102 RF: 3 (DME) pen needle, diabetic [BD Ultra-Fine Esha Pen Needle] 32 gauge x 5/32" needle See Rx Instructions .ROUTE .MEDSUPPLY Qty: 300 RF: 3 (DME) Accu-Chek Guide test strips Strip See Dose Instructions .ROUTE .MEDSUPPLY Qty: 300 RF: 3 aspirin 81 mg tablet,delayed release (DR/EC) 81 mg PO QAM RF: 0 carvedilol 6.25 mg tablet 6.25 mg PO BID Qty: 60 RF: 2 furosemide 40 mg tablet 40 mg PO QAM RF: 0 loratadine 10 mg tablet 10 mg PO QAM RF: 0 benzonatate 100 mg capsule 100 mg PO TID PRN (Reason: Cough) RF: 0 Glucagon Emergency Kit (human) 1 mg recon soln 1 mg IM Q20M PRN (Reason: Hypoglycemia) RF: 0 albuterol sulfate [Ventolin HFA] 90 mcg/actuation HFA aerosol inhaler 2 puffs INH QID PRN (Reason: Shortness Of Breath) RF: 0 lisinopril 2.5 mg tablet 5 mg PO QAM RF: 0 cholecalciferol (vitamin D3) 25 mcg (1,000 unit) capsule 25 mcg PO DAILY RF: 0 famotidine [Pepcid] 40 mg tablet 40 mg PO DAILY RF: 0 omega-3 fatty acids-fish oil [Fish Oil] 360-1,200 mg capsule 1 cap PO DAILY RF: 0 (DME) insulin syringe-needle U-100 [BD Insulin Syringe Ultra-Fine] 1 mL 30 gauge x 1/2" syringe See Rx Instructions .ROUTE .MEDSUPPLY Qty: 10 RF: 0 insulin aspart U-100 [Novolog Flexpen U-100 Insulin] 100 unit/mL (3 mL) insulin pen 40 unit SQ DIRECTED RF: 0 Novolin N NPH U-100 Insulin 100 unit/mL suspension 45 - 75 unit SUBCUT AMPM RF: 0 levothyroxine 175 mcg Tablet 175 mcg PO QAM RF: 0 triamcinolone acetonide 0.1 % Cream 1 applic TOPICAL BID PRN (Reason: Rash) RF: 0 nystatin 100,000 unit/gram Cream 1 applic TOPICAL DAILY PRN (Reason: Rash) RF: 0 acyclovir 5 % Cream 1 applic TOPICAL UD PRN (Reason: Cold Sores) RF: 0 atorvastatin 40 mg tablet 40 mg PO QAM RF: 0 clopidogrel 75 mg tablet 75 mg PO QAM RF: 0 diclofenac sodium 1 % gel 2 - 4 g TOP QID PRN (Reason: joint pain) RF: 0 Referrals Referrals: Mai Judge MD [Primary Care Provider] -
[2020-11-21 00:35] LABS: Hematocrit (blood only) 35.7 % (37-47); Hemoglobin 11.6 g/dL (12.0-16.0); Mean Corpuscular Hemoglobin 26.4 pg (25-34); Mean Corpuscular Hgb Conc 32.5 g/dL (32-36); Mean Corpuscular Volume 81.3 fL (80-100); Mean Platelet Volume 9.1 fL (7.4-10.4); Nucleated RBC # (auto) 0.03 K/uL (0-0); Nucleated RBC % (auto) 0.1 %; Platelet Count 630 K/uL (130-400); RDW Coefficient of Variation 17.1 % (11.5-14.5); RDW Standard Deviation 50.9 fL (36.4-46.3); Red Blood Count 4.39 M/uL (4.2-5.4); White Blood Count 23.41 K/uL (4.8-10.8)
[2020-11-21 00:47] LABS: Partial Thromboplastin Ratio 0.8; Partial Thromboplastin Time 21.5 Seconds (21.0-31.0); Prothrombin Time 10.4 Seconds (9.0-12.0)
[2020-11-21 00:56] LABS: Basophils # (auto) 0.15 K/uL (0-0.2); Basophils % (auto) 0.6 %; Eosinophils # (auto) 0.66 K/uL (0-0.5); Eosinophils % (auto) 2.8 %; Immature Granulocytes # (auto) 2.28 K/uL (0.00-0.02); Immature Granulocytes % (auto) 9.7 %; Lymphocytes # (auto) 3.56 K/uL (1.2-3.4); Lymphocytes % (auto) 15.2 %; Monocytes # (auto) 2.01 K/uL (0.11-0.59); Monocytes % (auto) 8.6 %; Neutrophils # (auto) 14.75 K/uL (1.4-6.5); Neutrophils % (auto) 63.1 %
[2020-11-21] MEDS ORDERED: PIPERACILLIN/TAZOBACTAM 4.5 GM/120 ML BAG IV ONE (01:04)
[2020-11-21] MEDS ORDERED: PIPERACILL/TAZOBAC CONSULT ACTIVE PRN (01:04)
[2020-11-21 01:16] LABS: Alanine Aminotransferase 41 U/L (12-78); Albumin Globulin Ratio 0.6 (0.9-2); Albumin Level 2.7 gm/dl (3.4-5.0); Alkaline Phosphatase 141 U/L (45-117); Aspartate Aminotransferase 26 U/L (15-37); BUN Creatinine Ratio 37.7 (10-20); Bilirubin,Total 0.6 mg/dl (0.2-1); Blood Urea Nitrogen 51 mg/dl (7-18); Calcium 8.9 mg/dl (8.5-10.1); Carbon Dioxide 23 mmol/L (21-32); Chloride 114 mmol/L (98-107); Est GFR (African American) 43.7; Est GFR (Non-African American) 37.7; Globulin 4.5 gm/dl (2.5-4.0); Glucose 36 mg/dl (70-99); Magnesium 2.2 mg/dl (1.8-2.4); Potassium 4.9 mmol/L (3.5-5.1); Sodium 143 mmol/L (136-145); Total Protein 7.2 gm/dl (6.4-8.2); Troponin I < 0.015 ng/ml (0-0.045)
[2020-11-21 01:25] LABS: Base Excess VBG -1.7 mEq/L; HCO3 VBG 23 mmol/L; PCO2 VBG 40 mmHg (38-50); PO2 VBG 29 mmHg; pH VBG 7.38 (7.36-7.41)
[2020-11-21 01:35] LABS: Oxygen Saturation VBG < 60.0 %
[2020-11-21] MEDS ORDERED: ALBUTEROL HFA 8 GM INHALER INH STA (01:48)
--- NOTE | 2020-11-21 03:00 | History & Physical Report ---
Date of Service November 21, 2020 Assessment & Plan (1) Encephalopathy: Multifactorial : Hypoxemic respiratory failure secondary to persistent COVID-19 pneumonia rule out pulmonary embolism given thrombocytosis Hypoglycemia secondary to poor p.o. intake, deconditioning Improved mentation after initial intervention at the ER. chronic systolic heart failure secondary to ischemic cardiomyopathy (EF 45%, cardiac catheterization 2018), patient euvolemic to dry hx CAD status post stent PAF, patient NSR hypertension, slight elevated hyperlipidemia on statin Rx DM2 insulin requiring, although hypoglycemic on admission, recent hemoglobin A1c was 8.15 Nov 2020 CRI, creatinine at baseline chronic anemia, hemoglobin at baseline hypothyroidism, euthyroid as of TSH from last month Past tobacco abuse Medical telemetry Supplemental O2 Decadron course, nebs RTC CT chest PE study Pulmonology consult if without improvement Gentle IV hydration Facilitate home BP meds Basal insulin for clear liquid diet for now, ISS BG goal 1 10-1 40, carb count coverage PT OT eval DVT prophylaxis. Heparin subcu Full code Text document was generated using [employer] voice recognition software. It may contain grammatical or spelling errors. Kindly contact undersigned for clarification of any documentation item in question. History of Present Illness Chief Complaint: Shortness of breath Primary Care Provider: Mai Judge MD History obtained from patient, family, and records. Medical history significant for chronic systolic heart failure secondary to ischemic cardiomyopathy (EF 45%, cardiac catheterization 2018), CAD status post stent, PAF, hypertension, hyperlipidemia, DM2 insulin requiring, CRI (baseline creatinine 1.5), chronic anemia (baseline hemoglobin 10), hypothyroidism, recent COVID-19 pneumonia. Last confinement November 14-2020 for hypoxemic respiratory failure secondary to severe COVID-19 pneumonia. Patient received Decadron during confinement. Remdesivir stopped due to kidney dysfunction. Transient l A. fib noted during confinement. Patient subsequently discharged home. At home, patient noted sudden onset shortness of breath on exertion. Same cough symptoms productive of clear sputum. Patient denies chest pain or unusual leg swelling. Patient denies fluid retention. Poor appetite at home. Some confusion noted. Patient noted to be hypoglycemic. Dextrose given at the ER. Decadron and Zosyn given at the ER for persistent Covid 19 pneumonia. Medical History as above Surgical History : D&C, hysteroscopy with biopsy and polypectomy, cholecystectomy, BTL, thyroidectomy Family History : Heart disease, breast cancer Personal/Social history : Past tobacco abuse, no EtOH intake, retired caregiver Allergies Allergy/AdvReac Type Severity Reaction Status Date / Time adhesive Allergy Mild Band Aid - Verified 11/21/20 00:35 Rash Sulfa (Sulfonamide Allergy Mild nausea/vomi Verified 11/21/20 00:35 Antibiotics) ting Home Medications Medication Instructions Recorded Confirmed Type albuterol sulfate 90 mcg/actuation 2 puffs INH QID PRN 02/22/19 11/21/20 History aerosol inhaler aspirin 81 mg tablet,delayed 81 mg PO QAM 02/22/19 11/21/20 History release benzonatate 100 mg capsule 100 mg PO TID PRN 02/22/19 11/21/20 History carvedilol 6.25 mg tablet 6.25 mg PO BID #60 tab 02/22/19 11/21/20 Rx furosemide 40 mg tablet 40 mg PO QAM 02/22/19 11/21/20 History glucagon (human recombinant) 1 mg 1 mg IM Q20M PRN 02/22/19 11/21/20 History solution for injection loratadine 10 mg tablet 10 mg PO QAM 02/22/19 11/21/20 History Accu-Chek Fastclix Lancet Drum #102 ea NS 03/10/19 10/16/20 Rx Accu-Chek Guide Glucose Meter #1 ea 03/10/19 10/16/20 Rx acyclovir 1 applic TOPICAL UD PRN 04/14/19 11/21/20 History atorvastatin 40 mg PO QAM 04/14/19 11/21/20 History clopidogrel 75 mg PO QAM 04/14/19 11/21/20 History diclofenac sodium 2 - 4 g TOP QID PRN 04/14/19 11/21/20 History levothyroxine 175 mcg PO QAM 04/14/19 11/21/20 History nystatin 1 applic TOPICAL DAILY PRN 04/14/19 11/21/20 History triamcinolone acetonide 1 applic TOPICAL BID PRN 04/14/19 11/21/20 History BD Ultra-Fine Esha Pen Needle 32 #300 ea NS 09/15/19 10/16/20 Rx gauge x 5/32" Accu-Chek Guide test strips #300 ea NS 09/12/20 10/16/20 Rx cholecalciferol (vitamin D3) 25 25 mcg PO DAILY 10/16/20 11/21/20 History mcg (1,000 unit) capsule famotidine 40 mg tablet 40 mg PO DAILY 10/16/20 11/21/20 History insulin NPH isoph U-100 human 100 45 - 75 unit SUBCUT AMPM ml 10/16/20 11/21/20 History unit/mL subcutaneous suspension insulin aspart U-100 100 unit/mL 40 unit SQ DIRECTED ml 10/16/20 11/21/20 History (3 mL) subcutaneous pen insulin syringe-needle U-100 1 mL #10 ea 10/16/20 10/16/20 History 30 gauge x 1/2" lisinopril 2.5 mg tablet 5 mg PO QAM tab 10/16/20 11/21/20 History omega-3 fatty acids-fish oil 360 1 cap PO DAILY 10/16/20 11/21/20 History mg-1,200 mg capsule Past Med/Surg History Medical History Acute hypoxemic respiratory failure Anemia Anemia Asthma inhaler prn Chronic kidney disease follows with Dr. Bliss Diabetes mellitus with microalbuminuria Diabetes mellitus, type 2 Diabetes type 2, uncontrolled GERD (gastroesophageal reflux disease) Hyperlipidemia Hypertension Hypocalcemia Hypoparathyroidism Hypothyroidism Morbid obesity with BMI of 40.0-44.9, adult Multifocal pneumonia Myocardial Infarction 2003--follows with Dr. Vallejo On anticoagulant therapy plavix daily Osteoarthritis Surgical History History of bilateral tubal ligation History of cardiac cath total of 4---last 12/2018 @ [facility] with Dr. Vallejo History of cholecystectomy History of heart artery stent x4 total--last 12/2018 @ [facility]--pt unsure what kind, requested info be obtained from Dr. Vallejo's office History of right cataract extraction History of thyroidectomy History of tooth extraction all teeth removed Family History Mother Family history of diabetes mellitus Cardiovascular disease Sister Family history of diabetes mellitus Other No family history of adverse response to anesthesia Social History Smoking Status: Former smoker Tobacco Type: Cigarettes Smoking End Date: 1965; Second Hand Exposure: No; Hx Alcohol Use: No Hx Substance Use: No Preferred Language: Scottish Communication Ability: Effective Legal Billing Clerk Required: No Beliefs That Will Affect Care: None Current Living Situation: Family Current Living Situation Comment: lives with sister Other Information That Helps Us Care for You: No Feels Safe at Home: Yes Safety Concerns: Feels Safe At This Time Assistive Devices: Oxygen - Continuous Review of Systems Review of Systems: As per HPI, all 10 systems reviewed, all other ROS negative Physical Exam Physical Exam: GENERAL: Comfortable, morbidly obese, pleasant, minimal respiratory distress SKIN: Pallor , warm HEENT: Pale palpebral conjunctivae, no ptosis, dry buccal mucosa, nasal cannula in place NECK : Supple, short neck, no tenderness CHEST : Decreased breath sounds, occasional expiratory wheezes, no tenderness HEART : RRR, no obvious murmurs ABDOMEN: Some distention, nontender EXTREMITIES : Bilateral LE swelling, no LE tenderness, no other conspicuous deformities noted NEUROLOGIC : Coherent, no facial asymmetry, no other gross focality Results & Data Results & Data ([facility]) Vital Signs (Past 12 Hours) Vital Signs Temp Pulse Resp BP BP Pulse Ox 11/21/20 02:30 98 11/21/20 02:01 63 25 H 118/54 L 95 11/21/20 02:00 63 24 94 11/21/20 01:46 71 22 124/55 L 96 11/21/20 01:45 69 26 H 93 11/21/20 01:31 66 24 93 11/21/20 01:30 64 26 H 123/43 L 92 11/21/20 01:25 68 24 109/35 L 94 11/21/20 01:15 70 26 H 93 11/21/20 01:00 69 30 H 93 11/21/20 00:46 66 27 H 146/62 H 93 11/21/20 00:45 67 25 H 92 11/21/20 00:31 71 25 H 93 11/21/20 00:30 71 25 H 146/67 H 94 11/21/20 00:20 68 24 95 11/21/20 00:16 69 21 118/39 L 95 11/21/20 00:00 37.0 C 22 118/39 L 94 11/20/20 23:46 36.6 C 75 16 143/78 H 90 Laboratory Results Laboratory Results WBC 23.41 K/uL (4.8-10.8) H 11/21/20 00:00 RBC 4.39 M/uL (4.2-5.4) 11/21/20 00:00 Hgb 11.6 g/dL (12.0-16.0) L 11/21/20 00:00 Hct 35.7 % (37-47) L 11/21/20 00:00 MCV 81.3 fL (80-100) 11/21/20 00:00 MCH 26.4 pg (25-34) 11/21/20 00:00 MCHC 32.5 g/dL (32-36) 11/21/20 00:00 RDW Std Deviation 50.9 fL (36.4-46.3) H 11/21/20 00:00 RDW Coeff of Man 17.1 % (11.5-14.5) H 11/21/20 00:00 Plt Count 630 K/uL (130-400) H 11/21/20 00:00 MPV 9.1 fL (7.4-10.4) 11/21/20 00:00 Immature Gran % (Auto) 9.7 % 11/21/20 00:00 Neut % (Auto) 63.1 % 11/21/20 00:00 Lymph % (Auto) 15.2 % 11/21/20 00:00 Benson % (Auto) 8.6 % 11/21/20 00:00 Eos % (Auto) 2.8 % 11/21/20 00:00 Baso % (Auto) 0.6 % 11/21/20 00:00 Neut # (Auto) 14.75 K/uL (1.4-6.5) H 11/21/20 00:00 Lymph # (Auto) 3.56 K/uL (1.2-3.4) H 11/21/20 00:00 Benson # (Auto) 2.01 K/uL (0.11-0.59) H 11/21/20 00:00 Eos # (Auto) 0.66 K/uL (0-0.5) H 11/21/20 00:00 Baso # (Auto) 0.15 K/uL (0-0.2) 11/21/20 00:00 Immature Gran # (Auto) 2.28 K/uL (0.00-0.02) H 11/21/20 00:00 Absolute Nucleated RBC 0.03 K/uL (0-0) H 11/21/20 00:00 Nucleated RBC % (auto) 0.1 % 11/21/20 00:00 PT 10.4 Seconds (9.0-12.0) 11/21/20 00:00 INR 1.0 (0.9-1.1) 11/21/20 00:00 APTT 21.5 Seconds (21.0-31.0) 11/21/20 00:00 PTT Ratio 0.8 11/21/20 00:00 VBG pH 7.38 (7.36-7.41) 11/21/20 01:16 VBG pCO2 40 mmHg (38-50) 11/21/20 01:16 VBG pO2 29 mmHg 11/21/20 01:16 VBG HCO3 23 mmol/L 11/21/20 01:16 VBG O2 Saturation < 60.0 % 11/21/20 01:16 VBG Base Excess -1.7 mEq/L 11/21/20 01:16 Sodium 143 mmol/L (136-145) 11/21/20 00:00 Potassium 4.9 mmol/L (3.5-5.1) 11/21/20 00:00 Chloride 114 mmol/L (98-107) H 11/21/20 00:00 Carbon Dioxide 23 mmol/L (21-32) 11/21/20 00:00 Anion Gap 6.0 (3-11) 11/21/20 00:00 BUN 51 mg/dl (7-18) H 11/21/20 00:00 Creatinine 1.36 mg/dl (0.6-1.2) H 11/21/20 00:00 Est Cr Clr Drug Dosing 44.0 ml/min 11/21/20 00:00 Est GFR ( Amer) 43.7 11/21/20 00:00 Est GFR (Non-Af Amer) 37.7 11/21/20 00:00 BUN/Creatinine Ratio 37.7 (10-20) H 11/21/20 00:00 Glucose 36 mg/dl (70-99) L* 11/21/20 00:00 POC Glucose 120 mg/dl (70-99) H 11/21/20 02:40 Lactate 0.9 mmol/L (0.4-2.0) 11/21/20 00:00 Calcium 8.9 mg/dl (8.5-10.1) 11/21/20 00:00 Magnesium 2.2 mg/dl (1.8-2.4) 11/21/20 00:00 Total Bilirubin 0.6 mg/dl (0.2-1) 11/21/20 00:00 AST 26 U/L (15-37) 11/21/20 00:00 ALT 41 U/L (12-78) 11/21/20 00:00 Alkaline Phosphatase 141 U/L (45-117) H 11/21/20 00:00 Ammonia 28.0 umol/L (11-32) 11/21/20 01:04 Troponin I < 0.015 ng/ml (0-0.045) 11/21/20 00:00 Total Protein 7.2 gm/dl (6.4-8.2) 11/21/20 00:00 Albumin 2.7 gm/dl (3.4-5.0) L 11/21/20 00:00 Globulin 4.5 gm/dl (2.5-4.0) H 11/21/20 00:00 Albumin/Globulin Ratio 0.6 (0.9-2) L 11/21/20 00:00 Procalcitonin < 0.05 ng/ml (0-0.5) 11/21/20 00:00 Diagnostic Findings Chest x-ray as per my interpretation multifocal pneumonia EKG as per my interpretation : Rate 70, NSR, normal axis, T wave abnormalities, septal leads
[2020-11-21] MEDS ORDERED: SODIUM CHLORIDE 0.45 % 1,000 ML IV ONE (03:13)
[2020-11-21] MEDS ORDERED: OPTIRAY 350 500ml IV ONE (03:40)
[2020-11-21] MEDS ORDERED: INSULIN ASPART 100 UNITS/ML 3 ML PEN SC SCH (04:58)
[2020-11-21] MEDS ORDERED: GLUCOSE 10 TAB/TUBE PO PRN (04:58)
[2020-11-21] MEDS ORDERED: GLUCOSE 40% GEL 15 GM TUBE PO PRN (04:58)
[2020-11-21] MEDS ORDERED: GLUCAGON FOR INJ 1 MG VIAL SQ PRN (04:58)
[2020-11-21] MEDS ORDERED: REMDESIVIR 200 MG in SODIUM CHLORIDE 0.9% 210 ML IV STA (05:50)
[2020-11-21] MEDS: HEPARIN SOD 5,000 UNIT/0.5 ML VIAL SQ SCH ×3 (05:56→19:58)
[2020-11-21] MEDS: LEVOTHYROXINE SODIUM 175 MCG TABLET PO SCH (05:56)
[2020-11-21] MEDS ORDERED: SODIUM CHLORIDE 0.9% 10ML FLUSH IV SCH (06:00)
[2020-11-21] MEDS ORDERED: ALBUTEROL HFA 8 GM INHALER INH SCH (07:00)
--- NOTE | 2020-11-21 07:27 | CT Scan Report ---
CT ANGIOGRAM OF THE CHEST CLINICAL HISTORY: Cough. Dyspnea. Covid. COMPARISON STUDY: Chest x-ray dated 11/21/2020. TECHNIQUE: Following the IV administration of 118 cc of Optiray 350, CT angiogram of the chest was pe rformed from the upper abdomen to the thoracic inlet utilizing the pulmonary embolus protocol. Images are reviewed in the axial, sagittal, and coronal planes. 3-D MIPS images are created and assessed. I V contrast was administered without complication. A dose lowering technique was utilized adhering to the principles of ALARA. CT DOSE: 958.55 mGy.cm FINDINGS: Thyroid: Atrophic and heterogeneous. Thoracic aorta: There is mild atherosclerotic calcification of the thoracic aorta, which is normal in caliber and demonstrates standard 3-vessel arch anatomy. No dissection is seen. Pulmonary vasculature: The pulmonary trunk is normal in caliber. There are no filling defects identif ied in main, lobar, or proximal segmental pulmonary branches to suggest pulmonary embolus. Evaluation of the peripheral branches is significantly degraded by motion artifact, greatest in the right lower lobe. Heart: The heart is top normal in size and without pericardial effusion. The coronary arteries are de nsely calcified. Lungs and pleural spaces: Evaluation of the lung parenchyma is degraded by motion artifact. Multifoca l airspace consolidation is seen throughout both lungs. No pleural effusion is identified. The trache a and central airways are clear. Mediastinum: There are scattered subcentimeter mediastinal nodes. Ester: Mildly enlarged hilar nodes measure up to 11 mm in short axis. These are likely reactive. Axillae: There is no axillary lymphadenopathy. Upper abdomen: Cholecystectomy clips are noted. There is a tiny hiatal hernia. 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 Skeletal structures: The skeletal structures are osteopenic. Degenerative change and kyphoscoliosis a re noted in the thoracic spine. No lytic or blastic bony lesions are seen. IMPRESSION: 1. Motion compromised examination. 2. There is no evidence of pulmonary embolus in the main, lobar, or proximal segmental pulmonary carmina esthela. The peripheral branches are not well evaluated. 3. Multifocal airspace consolidation is consistent with the reported history of a viral pneumonia. Ra diographic follow-up to resolution is recommended. 4. Advanced coronary artery calcification. 5. Additional findings as above. ACT 112: Negative or not required by law. Electronically signed by: Ramos Hinton M.D. 11/21/2020 7:26 AM
--- NOTE | 2020-11-21 07:31 | XRay Report ---
SINGLE VIEW CHEST CLINICAL HISTORY: Sepsis. Covid. FINDINGS: An AP, portable, upright chest radiograph is compared to study dated 11/13/2020. The heart is mildly enlarged. Multifocal airspace consolidation has modestly cleared as compared to 11/13/2020. No large pleural effusion or pneumothorax is seen. The skeletal structures are osteopenic. The bony thor ax is grossly intact. IMPRESSION: Multifocal airspace consolidation has modestly cleared as compared to 11/13/2020. This is c onsistent with the reported history of a viral pneumonia. Continued radiographic follow-up to resolut ion is recommended. ACT 112: Negative or not required by law. Electronically signed by: Ramos Hinton M.D. 11/21/2020 7:30 AM
[2020-11-21] MEDS: INSULIN ASPART 100 UNITS/ML 3 ML PEN SC SCH ×4 (08:30→20:27)
[2020-11-21] MEDS ORDERED: INSULIN GLARGINE SOLOSTAR 100 UNITS/ML 3 ML PEN SC SCH (09:00)
[2020-11-21] MEDS: FAMOTIDINE 40 MG TABLET PO SCH (09:09)
[2020-11-21] MEDS: ATORVASTATIN 40 MG TAB PO SCH (09:09)
[2020-11-21] MEDS: ASPIRIN 81 MG ECTAB PO SCH (09:09)
[2020-11-21] MEDS: LORATADINE 10 MG TAB PO SCH (09:10)
[2020-11-21] MEDS: CLOPIDOGREL BISULFATE 75 MG TAB PO SCH (09:10)
[2020-11-21] MEDS: carvediloL 6.25 MG TAB PO SCH ×2 (09:10→19:56)
[2020-11-21] MEDS ORDERED: ALBUTEROL HFA 8 GM INHALER INH PRN (10:01)
--- NOTE | 2020-11-21 19:05 | Communication Note ---
Date of Service: November 21, 2020 Pt was seen and examined. She was recently discharged for COVID 19 pneumonia. Pt said that she continues to have SOB with exertion. CTA chest showed no evidence of pulmonary embolus in the main, lobar, or proximal segmental pulmonary arteries. Multifocal airspace consolidation is consistent with the reported history of a viral pneumonia. Continue dexamethasone, neb treatment, incentive spirometry, flutter valve and oxygen supplement. Continue monitor closely. MD Kristyn
[2020-11-21] MEDS ORDERED: INSULIN HUMAN REGULAR PER UNIT 5 UNITS in SYRINGE 4.95 ML IV ONE (21:30)
[2020-11-21] MEDS: INSULIN GLARGINE SOLOSTAR 100 UNITS/ML 3 ML PEN SC SCH (21:57)
[2020-11-22] MEDS: HEPARIN SOD 5,000 UNIT/0.5 ML VIAL SQ SCH ×3 (05:59→20:04)
[2020-11-22] MEDS: LEVOTHYROXINE SODIUM 175 MCG TABLET PO SCH (06:00)
--- NOTE | 2020-11-22 06:20 | Electrocardiogram Report ---
Test Reason : Blood Pressure : / mmHG Vent. Rate : 072 BPM Atrial Rate : 072 BPM P-R Int : 184 ms QRS Dur : 072 ms QT Int : 390 ms P-R-T Axes : 041 040 061 degrees QTc Int : 427 ms Normal sinus rhythm Normal ECG When compared with ECG of 16-NOV-2020 09:33, Sinus rhythm has replaced Atrial fibrillation QRS duration has decreased Confirmed by Gonzalez Mirza ([id number]) on 11/22/2020 6:19:28 AM Referred By: REFERRED SELF Confirmed By:Gonzalez Mirza
[2020-11-22 07:11] LABS: Hemoglobin 9.9 g/dL (12.0-16.0); Mean Corpuscular Hemoglobin 26.2 pg (25-34); Mean Corpuscular Hgb Conc 31.9 g/dL (32-36); Platelet Count 357 K/uL (130-400); RDW Coefficient of Variation 17.4 % (11.5-14.5); RDW Standard Deviation 52.6 fL (36.4-46.3); Red Blood Count 3.78 M/uL (4.2-5.4); White Blood Count 11.23 K/uL (4.8-10.8)
[2020-11-22 07:49] LABS: Basophils # (auto) 0.04 K/uL (0-0.2); Basophils % (auto) 0.4 %; Echinocytes 1+; Eosinophils # (auto) 0.27 K/uL (0-0.5); Eosinophils % (auto) 2.4 %; Immature Granulocytes # (auto) 0.77 K/uL (0.00-0.02); Immature Granulocytes % (auto) 6.9 %; Lymphocytes # (auto) 1.69 K/uL (1.2-3.4); Monocytes # (auto) 1.18 K/uL (0.11-0.59); Monocytes % (auto) 10.5 %; Neutrophils # (auto) 7.28 K/uL (1.4-6.5); Neutrophils % (auto) 64.8 %
[2020-11-22 07:53] LABS: BUN Creatinine Ratio 30.9 (10-20); Creatinine Clr Calc Pharmacy 37.1 ml/min; Est GFR (Non-African American) 31.9; Potassium 5.3 mmol/L (3.5-5.1)
[2020-11-22] MEDS: ASPIRIN 81 MG ECTAB PO SCH (08:22)
[2020-11-22] MEDS: carvediloL 6.25 MG TAB PO SCH ×2 (08:22→20:03)
[2020-11-22] MEDS: CLOPIDOGREL BISULFATE 75 MG TAB PO SCH (08:22)
[2020-11-22] MEDS: LORATADINE 10 MG TAB PO SCH (08:22)
[2020-11-22] MEDS: ATORVASTATIN 40 MG TAB PO SCH (08:23)
[2020-11-22] MEDS: FAMOTIDINE 40 MG TABLET PO SCH (08:23)
[2020-11-22] MEDS: INSULIN ASPART 100 UNITS/ML 3 ML PEN SC SCH ×3 (08:23→17:46)
[2020-11-22] MEDS: INSULIN GLARGINE SOLOSTAR 100 UNITS/ML 3 ML PEN SC SCH (08:24)
[2020-11-22] MEDS: dexAMETHasone 6 MG in SYRINGE 0 ML IV SCH (08:28)
--- NOTE | 2020-11-22 08:37 | Hospitalist Progress Note ---
Date of Service November 22, 2020 Assessment & Plan (1) Encephalopathy: Multifactorial : Hypoxemic respiratory failure secondary to persistent COVID-19 pneumonia rule out pulmonary embolism given thrombocytosis Hypoglycemia secondary to poor p.o. intake, deconditioning Improved mentation after initial intervention at the ER. Patient just recently admitted for COVID-19 pneumonia Discharged on November 19, readmitted on November 20 During that admission, patient was started on remdesivir and dexamethasone, remdesivir was then stopped due to renal function Currently on Decadron, nebs CT PE obtained on admission, to rule out PE, negative for PE Procalcitonin negative Currently patient is on monitor on nasal cannula on supplemental oxygen, however his ambulation, with PT required 4 L as she would desaturate to 85% CT also shows Multifocal airspace consolidation is consistent with the reported history of a viral pneumonia. Radiographic follow-up to resolution is recommended. Continue supplemental O2 Received IV Zosyn in the ED, then antibiotics stopped on admission, will start Doxy 100 twice daily Pulmonology consult if without improvement Chronic systolic heart failure secondary to ischemic cardiomyopathy (EF 45%, cardiac catheterization 2018) -patient euvolemic to dry on admission -Continue Coreg, manage home Lasix and lisinopril Hx CAD status post stent -continue aspirin Plavix, Coreg and statin PAF, patient NSR hypertension, slight elevated , Facilitate home BP meds hyperlipidemia on statin Rx DM2 insulin requiring, although hypoglycemic on admission, recent hemoglobin A1c was 8.15 Nov 2020 Patient is currently hyperglycemic, in the setting of Decadron use Glycemic pharmacy consulted CKD stage III Baseline creatinine 1.5-1.7 Chronic anemia, hemoglobin at baseline Hypothyroidism -euthyroid as of TSH from last month -Continue Synthroid may need help slow History of asthma On albuterol p.r.n. Obesity BMI 44 Counseling on weight loss PT OT eval DVT prophylaxis. Heparin subcu Full code Admission and Anticipated Discharge Date Admission Date: November 21, 2020 Subjective Patient seen in follow-up of hypoxia, COVID-19 infection Currently patient is lying in bed, says that she feels better now, currently on 1 L of nasal cannula supplemental oxygen Denies any fevers, chills, chest pain, abdominal pain, nausea or vomiting Patient was recently discharged and readmitted as at home she was severely short of breath with any mild ambulation Review of Systems Review of Systems: All systems reviewed & are unremarkable except as noted in HPI & below Constitutional: no fever and no chills Respiratory: + cough and + dyspnea Cardiovascular: no chest pain and no palpitations Gastrointestinal: no abdominal pain, no nausea and no vomiting Physical Exam Physical Exam: GENERAL: Comfortable, morbidly obese, pleasant HEENT: NC/AT, pale palpebral conjunctivae, nasal cannula in place NECK : Supple, short neck, no tenderness CHEST : mild diffuse rhonchi, no wheezing, no tenderness HEART : RRR, no obvious murmurs ABDOMEN: Some distention, obese, soft, nontender EXTREMITIES : B/l LE swelling, no LE tenderness, moves extremities NEUROLOGIC : alert and oriented x3, no facial asymmetry, speech fluent, moves extremities SKIN: Pallor , warm Results & Data Results & Data ([facility]) Vital Signs (Past 12 Hours) Vital Signs Temp Pulse Pulse Resp BP Pulse Ox 11/22/20 08:00 65 11/22/20 07:10 36.4 C L 56 L 18 121/52 L 93 11/22/20 03:07 36.5 C 76 20 131/71 95 11/21/20 23:28 36.9 C 64 20 125/61 96 11/21/20 22:22 75 Laboratory Results 11/22/20 11/22/20 11/22/20 Range/Units 07:52 06:29 06:29 WBC 11.23 H (4.8-10.8) K/uL RBC 3.78 L (4.2-5.4) M/uL Hgb 9.9 L (12.0-16.0) g/dL Hct 31.0 L (37-47) % MCV 82.0 (80-100) fL MCH 26.2 (25-34) pg MCHC 31.9 L (32-36) g/dL RDW Std Deviation 52.6 H (36.4-46.3) fL RDW Coeff of Man 17.4 H (11.5-14.5) % Plt Count 357 (130-400) K/uL MPV 9.0 (7.4-10.4) fL Immature Gran % (Auto) 6.9 % Neut % (Auto) 64.8 % Lymph % (Auto) 15.0 % Morris % (Auto) 10.5 % Eos % (Auto) 2.4 % Baso % (Auto) 0.4 % Neut # (Auto) 7.28 H (1.4-6.5) K/uL Lymph # (Auto) 1.69 (1.2-3.4) K/uL Morris # (Auto) 1.18 H (0.11-0.59) K/uL Eos # (Auto) 0.27 (0-0.5) K/uL Baso # (Auto) 0.04 (0-0.2) K/uL Immature Gran # (Auto) 0.77 H (0.00-0.02) K/uL Echinocytes 1+ Sodium 140 (136-145) mmol/L Potassium 5.3 H (3.5-5.1) mmol/L Chloride 113 H (98-107) mmol/L Carbon Dioxide 22 (21-32) mmol/L Anion Gap 5.0 (3-11) BUN 48 H (7-18) mg/dl Creatinine 1.56 H (0.6-1.2) mg/dl Est Cr Clr Drug Dosing 37.1 ml/min Est GFR ( Amer) 37.0 Est GFR (Non-Af Amer) 31.9 BUN/Creatinine Ratio 30.9 H (10-20) Glucose 166 H (70-99) mg/dl POC Glucose 162 H (70-99) mg/dl Calcium 8.0 L (8.5-10.1) mg/dl 11/22/20 11/21/20 11/21/20 Range/Units 03:49 23:01 22:03 WBC (4.8-10.8) K/uL RBC (4.2-5.4) M/uL Hgb (12.0-16.0) g/dL Hct (37-47) % MCV (80-100) fL MCH (25-34) pg MCHC (32-36) g/dL RDW Std Deviation (36.4-46.3) fL RDW Coeff of Man (11.5-14.5) % Plt Count (130-400) K/uL MPV (7.4-10.4) fL Immature Gran % (Auto) % Neut % (Auto) % Lymph % (Auto) % Morris % (Auto) % Eos % (Auto) % Baso % (Auto) % Neut # (Auto) (1.4-6.5) K/uL Lymph # (Auto) (1.2-3.4) K/uL Morris # (Auto) (0.11-0.59) K/uL Eos # (Auto) (0-0.5) K/uL Baso # (Auto) (0-0.2) K/uL Immature Gran # (Auto) (0.00-0.02) K/uL Echinocytes Sodium (136-145) mmol/L Potassium (3.5-5.1) mmol/L Chloride (98-107) mmol/L Carbon Dioxide (21-32) mmol/L Anion Gap (3-11) BUN (7-18) mg/dl Creatinine (0.6-1.2) mg/dl Est Cr Clr Drug Dosing ml/min Est GFR ( Amer) Est GFR (Non-Af Amer) BUN/Creatinine Ratio (10-20) Glucose (70-99) mg/dl POC Glucose 171 H 238 H 354 H* (70-99) mg/dl Calcium (8.5-10.1) mg/dl 11/21/20 11/21/20 11/21/20 Range/Units 20:13 20:04 16:47 WBC (4.8-10.8) K/uL RBC (4.2-5.4) M/uL Hgb (12.0-16.0) g/dL Hct (37-47) % MCV (80-100) fL MCH (25-34) pg MCHC (32-36) g/dL RDW Std Deviation (36.4-46.3) fL RDW Coeff of Man (11.5-14.5) % Plt Count (130-400) K/uL MPV (7.4-10.4) fL Immature Gran % (Auto) % Neut % (Auto) % Lymph % (Auto) % Morris % (Auto) % Eos % (Auto) % Baso % (Auto) % Neut # (Auto) (1.4-6.5) K/uL Lymph # (Auto) (1.2-3.4) K/uL Morris # (Auto) (0.11-0.59) K/uL Eos # (Auto) (0-0.5) K/uL Baso # (Auto) (0-0.2) K/uL Immature Gran # (Auto) (0.00-0.02) K/uL Echinocytes Sodium (136-145) mmol/L Potassium (3.5-5.1) mmol/L Chloride (98-107) mmol/L Carbon Dioxide (21-32) mmol/L Anion Gap (3-11) BUN (7-18) mg/dl Creatinine (0.6-1.2) mg/dl Est Cr Clr Drug Dosing ml/min Est GFR ( Amer) Est GFR (Non-Af Amer) BUN/Creatinine Ratio (10-20) Glucose (70-99) mg/dl POC Glucose 404 H* 391 H* 286 H (70-99) mg/dl Calcium (8.5-10.1) mg/dl 11/21/20 Range/Units 11:16 WBC (4.8-10.8) K/uL RBC (4.2-5.4) M/uL Hgb (12.0-16.0) g/dL Hct (37-47) % MCV (80-100) fL MCH (25-34) pg MCHC (32-36) g/dL RDW Std Deviation (36.4-46.3) fL RDW Coeff of Man (11.5-14.5) % Plt Count (130-400) K/uL MPV (7.4-10.4) fL Immature Gran % (Auto) % Neut % (Auto) % Lymph % (Auto) % Morris % (Auto) % Eos % (Auto) % Baso % (Auto) % Neut # (Auto) (1.4-6.5) K/uL Lymph # (Auto) (1.2-3.4) K/uL Morris # (Auto) (0.11-0.59) K/uL Eos # (Auto) (0-0.5) K/uL Baso # (Auto) (0-0.2) K/uL Immature Gran # (Auto) (0.00-0.02) K/uL Echinocytes Sodium (136-145) mmol/L Potassium (3.5-5.1) mmol/L Chloride (98-107) mmol/L Carbon Dioxide (21-32) mmol/L Anion Gap (3-11) BUN (7-18) mg/dl Creatinine (0.6-1.2) mg/dl Est Cr Clr Drug Dosing ml/min Est GFR ( Amer) Est GFR (Non-Af Amer) BUN/Creatinine Ratio (10-20) Glucose (70-99) mg/dl POC Glucose 205 H (70-99) mg/dl Calcium (8.5-10.1) mg/dl Medications Administered Current Inpatient Medications Albuterol (Albuterol Hfa 8 Gm Inhaler) 2 puffs INH QIDR PRN PRN Reason: Wheezing Stop: 11/28/20 09:59 Aspirin (Aspirin 81 Mg Ectab) 81 mg PO QAM [facility] Stop: 12/21/20 08:59 Last Admin: 11/22/20 08:22 Dose: 81 mg Documented by: Atorvastatin Calcium (Atorvastatin 40 Mg Tab) 40 mg PO QAM [facility] Stop: 12/21/20 08:59 Last Admin: 11/22/20 08:23 Dose: 40 mg Documented by: Carvedilol (Carvedilol 6.25 Mg Tab) 6.25 mg PO BID [facility] Stop: 12/21/20 08:59 Last Admin: 11/22/20 08:22 Dose: 6.25 mg Documented by: Clopidogrel Bisulfate (Clopidogrel Bisulfate 75 Mg Tab) 75 mg PO QAM [facility] Stop: 12/21/20 08:59 Last Admin: 11/22/20 08:22 Dose: 75 mg Documented by: Dextrose (Dextrose 50% 50 Ml Syringe) 25 - 50 ml IV UD PRN; Protocol PRN Reason: Hypoglycemia Protocol Stop: 12/21/20 04:57 Famotidine (Famotidine 40 Mg Tablet) 40 mg PO DAILY [facility] Stop: 12/21/20 08:59 Last Admin: 11/22/20 08:23 Dose: 40 mg Documented by: Furosemide (Furosemide 40 Mg Tab) 40 mg PO QAM [facility] Stop: 12/22/20 08:59 Glucagon (Glucagon For Inj 1 Mg Vial) 1 mg SQ UD PRN; Protocol PRN Reason: Hypoglycemia Protocol Stop: 12/21/20 04:57 Glucose (Glucose 10 Tabs/Tube) 4 - 8 tabs PO UD PRN; Protocol PRN Reason: Hypoglycemia Protocol Stop: 12/21/20 04:57 Glucose (Glucose 40% Gel 15 Gm Tube) 15 - 30 gm PO UD PRN; Protocol PRN Reason: Hypoglycemia Protocol Stop: 12/21/20 04:57 Heparin Sodium (Porcine) (Heparin Sod 5,000 Unit/0.5 Ml Vial) 5,000 units SQ Q8 [facility] Stop: 12/21/20 05:59 Last Admin: 11/22/20 05:59 Dose: 5,000 units Documented by: Dexamethasone 6 mg/ Syringe 1.5 mls @ 1 mls/min IV DAILY [facility] Stop: 12/22/20 08:59 Last Admin: 11/22/20 08:28 Dose: 1 mls/min Documented by: Insulin Aspart (Insulin Aspart 100 Units/Ml 3 Ml Pen) 0 units SC ACHS [facility] Stop: 12/21/20 07:29 Last Admin: 11/22/20 08:23 Dose: 5 units Documented by: Insulin Glargine (Insulin Glargine Solostar 100 Units/Ml 3 Ml Pen) 5 units SC BID [facility] Stop: 12/21/20 21:14 Last Admin: 11/22/20 08:24 Dose: 5 units Documented by: Levothyroxine Sodium (Levothyroxine Sodium 175 Mcg Tablet) 175 mcg PO DAILYBB [facility] Stop: 12/21/20 06:29 Last Admin: 11/22/20 06:00 Dose: 175 mcg Documented by: Loratadine (Loratadine 10 Mg Tab) 10 mg PO QAM [facility] Stop: 12/21/20 08:59 Last Admin: 11/22/20 08:22 Dose: 10 mg Documented by: Miscellaneous (Carbohydrates For Hypoglycemia ) 15 - 30 gm PO UD PRN PRN Reason: Hypoglycemia Protocol Stop: 12/21/20 04:57
[2020-11-22] MEDS ORDERED: PANTOprazole 40 MG TAB PO SCH (09:00)
[2020-11-22] MEDS: FUROSEMIDE 40 MG TAB PO SCH (11:38)
[2020-11-22] MEDS ORDERED: PHARMACY GLYCEMIC MGMT CONSULT PRN (16:59)
[2020-11-22] MEDS ORDERED: INSULIN GLARGINE SOLOSTAR 100 UNITS/ML 3 ML PEN SC ONE (17:15)
[2020-11-22] MEDS ORDERED: INSULIN HUMAN NPH SC ONE ×2 (17:15)
[2020-11-22] MEDS ORDERED: INSULIN HUMAN REGULAR PER UNIT 10 UNITS in SYRINGE 9.9 ML IV ONE (17:15)
[2020-11-22] MEDS: ADVANCED PROBIOTIC 1250 MG CAPSULE PO SCH (18:55)
[2020-11-22] MEDS: DOXYCYCLINE HYCLATE 100 MG CAP PO SCH (20:03)
[2020-11-22] MEDS ORDERED: INSULIN REGULAR 250 UNITS in SODIUM CHLORIDE 0.9% 247.5 ML IV SCH (20:30)
--- NOTE | 2020-11-22 20:51 | Pharmacy Report ---
Pharmacy Glycemic Short Note 2 - Date of Service November 22, 2020 - Glycemic Short BSG Results (Last 24 hours): 11/21/20 11/21/20 11/22/20 22:03 23:01 03:49 Glucose POC Glucose 354 H* 238 H 171 H 11/22/20 11/22/20 11/22/20 06:29 07:52 12:00 Glucose 166 H POC Glucose 162 H 261 H 11/22/20 11/22/20 11/22/20 16:51 16:52 20:05 Glucose POC Glucose 490 H* 460 H* 407 H* 11/22/20 20:06 Glucose POC Glucose 410 H* OUTPATIENT ANTIDIABETIC REGIMEN: * NPH 75 units SC qAM, 45 units SC qPM * Novolog 30 units SC qAM, 10 units SC qPM + sliding scale * HbA1c: 8.5% (11/14/20) ASSESSMENT: * VW is a 75 year old female who was admitted on 11/21/20 with COVID-19 pneumonia * Started on dexamethasone 6 mg IV daily yesterday morning * BSGs trended up yesterday, 82, 205, 286, and 404 mg/dL - likely in light of significant basal insulin deficiency and IV steroids * Initial inpatient basal of Lantus 5 units BID is significantly below outpatient doses * BSGs today of 162, 261, and 460 mg/dL * Pharmacy consulted at dinnertime for BSG of 460 mg/dL * Attempted to utilize IV insulin bolus with tightened Novolog and NPH in lieu of insulin infusion, but BSG still 410 mg/dL at HS * Discussed with hospitalist and will initiate IV insulin infusion PLAN FOR INPATIENT GLYCEMIC CONTROL: * Basal insulin * NPH 45 units SC given with dinner * Will give larger NPH dose in AM with IV dexamethasone * Will initiate insulin infusion, as this is the safest way to bring down elevated BSGs at this time PLAN FOR DISCHARGE: * tbd
[2020-11-22] MEDS ORDERED: INSULIN ASPART 100 UNITS/ML 3 ML PEN SC SCH (21:00)
[2020-11-23] MEDS ORDERED: INSULIN ASPART 100 UNITS/ML 3 ML PEN SC SCH
[2020-11-23] MEDS: INSULIN ASPART 100 UNITS/ML 3 ML PEN SC SCH ×5 (04:10→22:03)
[2020-11-23] MEDS: LEVOTHYROXINE SODIUM 175 MCG TABLET PO SCH (05:43)
[2020-11-23] MEDS: HEPARIN SOD 5,000 UNIT/0.5 ML VIAL SQ SCH ×3 (05:43→20:48)
[2020-11-23 06:14] LABS: Hematocrit (blood only) 34.3 % (37-47); Mean Corpuscular Hemoglobin 25.9 pg (25-34); Mean Corpuscular Hgb Conc 32.1 g/dL (32-36); Mean Corpuscular Volume 80.9 fL (80-100); Mean Platelet Volume 8.7 fL (7.4-10.4); Platelet Count 359 K/uL (130-400); RDW Coefficient of Variation 17.4 % (11.5-14.5); RDW Standard Deviation 51.3 fL (36.4-46.3); Red Blood Count 4.24 M/uL (4.2-5.4); White Blood Count 13.53 K/uL (4.8-10.8)
[2020-11-23 06:59] LABS: Calcium 9.1 mg/dl (8.5-10.1); Creatinine Clr Calc Pharmacy 36.1 ml/min; Est GFR (African American) 36.2 ml/min; Est GFR (Non-African American) 31.2 ml/min; Magnesium 2.4 mg/dl (1.8-2.4); Potassium 5.4 mmol/L (3.5-5.1)
[2020-11-23 07:00] LABS: Phosphorus 4.4 mg/dl (2.5-4.9)
[2020-11-23] MEDS: LORATADINE 10 MG TAB PO SCH (08:34)
[2020-11-23] MEDS: ATORVASTATIN 40 MG TAB PO SCH (08:35)
[2020-11-23] MEDS: carvediloL 6.25 MG TAB PO SCH ×2 (08:35→20:45)
[2020-11-23] MEDS: ADVANCED PROBIOTIC 1250 MG CAPSULE PO SCH (08:35)
[2020-11-23] MEDS: ASPIRIN 81 MG ECTAB PO SCH (08:35)
[2020-11-23] MEDS: DOXYCYCLINE HYCLATE 100 MG CAP PO SCH ×2 (08:35→20:47)
[2020-11-23] MEDS: CLOPIDOGREL BISULFATE 75 MG TAB PO SCH (08:35)
[2020-11-23] MEDS: FUROSEMIDE 40 MG TAB PO SCH (08:35)
[2020-11-23] MEDS: FAMOTIDINE 40 MG TABLET PO SCH (08:35)
[2020-11-23] MEDS: INSULIN HUMAN NPH SC SCH ×2 (08:36→17:20)
[2020-11-23] MEDS: dexAMETHasone 6 MG in SYRINGE 0 ML IV SCH (08:37)
--- NOTE | 2020-11-23 11:47 | Hospitalist Progress Note ---
Date of Service November 23, 2020 Assessment & Plan (1) Encephalopathy: Multifactorial : Hypoxemic respiratory failure secondary to persistent COVID-19 pneumonia rule out pulmonary embolism given thrombocytosis Hypoglycemia secondary to poor p.o. intake, deconditioning Improved mentation after initial intervention at the ER. Patient just recently admitted for COVID-19 pneumonia Discharged on November 19, readmitted on November 20 During that admission, patient was started on remdesivir and dexamethasone, remdesivir was then stopped due to renal function Currently on Decadron, nebs CT PE obtained on admission, to rule out PE, negative for PE Procalcitonin negative Currently patient is on monitor on nasal cannula on supplemental oxygen, however with ambulation, with PT required 4 L as she would desaturate to 85% on 11/22 Today (11/23) she was able to ambulate on 1L O2 CT also shows Multifocal airspace consolidation is consistent with the reported history of a viral pneumonia. Radiographic follow-up to resolution is recommended. Continue supplemental O2 Received IV Zosyn in the ED, then antibiotics stopped on admission, will start Doxy 100 twice daily Guaifenesin, incentive spirometry, flutter valve Pulmonology consult if without improvement DM2 insulin requiring, although hypoglycemic on admission, recent hemoglobin A1c was 8.15 Nov 2020 Patient is currently hyperglycemic, in the setting of Decadron use Glycemic pharmacy consulted, required IV insulin, now off IV insulin CKD stage III Baseline creatinine 1.5-1.7 Chronic systolic heart failure secondary to ischemic cardiomyopathy (EF 45%, cardiac catheterization 2018) -patient euvolemic to dry on admission -Continue Coreg, restarted home Lasix, cont. to hold home lisinopril for now Hx CAD status post stent -continue aspirin Plavix, Coreg and statin PAF, patient NSR hypertension, slight elevated on admission, now BP at goal, facilitate home BP meds hyperlipidemia on statin Rx Chronic anemia, hemoglobin at baseline Hypothyroidism -euthyroid as of TSH from last month -Continue Synthroid may need help slow History of asthma On albuterol p.r.n. Obesity BMI 44 Counseling on weight loss PT OT eval DVT prophylaxis. Heparin subcu Full code Admission and Anticipated Discharge Date Admission Date: November 21, 2020 Subjective Patient seen in follow-up of hypoxia, COVID-19 infection Currently patient is lying in bed, says that she feels better now, currently on 1 L of nasal cannula supplemental oxygen Denies any fevers, chills, chest pain, abdominal pain, nausea or vomiting Patient was recently discharged and readmitted as at home she was severely short of breath with any mild ambulation, she was also found hypoglycemic Yesterday her blood sugar was actually quite elevated, in the 400s, glycemic pharmacy was consulted, she was placed on IV insulin last evening, she is off IV insulin now Review of Systems Review of Systems: All systems reviewed & are unremarkable except as noted in HPI & below Constitutional: + weakness (Generalized); no fever and no chills Respiratory: + cough (Improved) and + dyspnea (Improved) Cardiovascular: no chest pain and no palpitations Gastrointestinal: no abdominal pain, no nausea and no vomiting Physical Exam Physical Exam: GENERAL: Comfortable, morbidly obese, pleasant HEENT: NC/AT, pale palpebral conjunctivae, nasal cannula in place NECK : Supple, short neck, no tenderness CHEST : mild diffuse rhonchi, no wheezing, no tenderness HEART : RRR, no obvious murmurs ABDOMEN: Some distention, obese, soft, nontender EXTREMITIES : B/l LE swelling, no LE tenderness, moves extremities NEUROLOGIC : alert and oriented x3, no facial asymmetry, speech fluent, moves extremities SKIN: Pallor , warm Results & Data Results & Data ([facility]) Vital Signs (Past 12 Hours) Vital Signs Temp Pulse Pulse Pulse Resp BP Pulse Ox 11/23/20 10:54 36.3 C L 63 20 127/62 94 11/23/20 08:00 56 L 11/23/20 07:17 36.3 C L 56 L 18 135/74 92 11/23/20 04:46 36.4 C L 61 20 146/70 H 93 Laboratory Results 11/23/20 11/23/20 11/23/20 Range/Units 11:01 07:15 05:55 WBC (4.8-10.8) K/uL RBC (4.2-5.4) M/uL Hgb (12.0-16.0) g/dL Hct (37-47) % MCV (80-100) fL MCH (25-34) pg MCHC (32-36) g/dL RDW Std Deviation (36.4-46.3) fL RDW Coeff of Man (11.5-14.5) % Plt Count (130-400) K/uL MPV (7.4-10.4) fL Sodium 140 (136-145) mmol/L Potassium 5.4 H (3.5-5.1) mmol/L Chloride 112 H (98-107) mmol/L Carbon Dioxide 23 (21-32) mmol/L Anion Gap 5.0 (3-11) BUN 51 H (7-18) mg/dl Creatinine 1.59 H (0.6-1.2) mg/dl Est Cr Clr Drug Dosing 36.1 ml/min Est GFR ( Amer) 36.2 ml/min Est GFR (Non-Af Amer) 31.2 ml/min BUN/Creatinine Ratio 32.0 H (10-20) Glucose 164 H (70-99) mg/dl POC Glucose 291 H 193 H (70-99) mg/dl Calcium 9.1 (8.5-10.1) mg/dl Phosphorus 4.4 (2.5-4.9) mg/dl Magnesium 2.4 (1.8-2.4) mg/dl 11/23/20 11/23/20 11/23/20 Range/Units 05:55 04:02 02:59 WBC 13.53 H (4.8-10.8) K/uL RBC 4.24 (4.2-5.4) M/uL Hgb 11.0 L (12.0-16.0) g/dL Hct 34.3 L (37-47) % MCV 80.9 (80-100) fL MCH 25.9 (25-34) pg MCHC 32.1 (32-36) g/dL RDW Std Deviation 51.3 H (36.4-46.3) fL RDW Coeff of Man 17.4 H (11.5-14.5) % Plt Count 359 (130-400) K/uL MPV 8.7 (7.4-10.4) fL Sodium (136-145) mmol/L Potassium (3.5-5.1) mmol/L Chloride (98-107) mmol/L Carbon Dioxide (21-32) mmol/L Anion Gap (3-11) BUN (7-18) mg/dl Creatinine (0.6-1.2) mg/dl Est Cr Clr Drug Dosing ml/min Est GFR ( Amer) ml/min Est GFR (Non-Af Amer) ml/min BUN/Creatinine Ratio (10-20) Glucose (70-99) mg/dl POC Glucose 157 H 140 H (70-99) mg/dl Calcium (8.5-10.1) mg/dl Phosphorus (2.5-4.9) mg/dl Magnesium (1.8-2.4) mg/dl 11/23/20 11/23/20 11/23/20 Range/Units 01:49 01:10 00:09 WBC (4.8-10.8) K/uL RBC (4.2-5.4) M/uL Hgb (12.0-16.0) g/dL Hct (37-47) % MCV (80-100) fL MCH (25-34) pg MCHC (32-36) g/dL RDW Std Deviation (36.4-46.3) fL RDW Coeff of Man (11.5-14.5) % Plt Count (130-400) K/uL MPV (7.4-10.4) fL Sodium (136-145) mmol/L Potassium (3.5-5.1) mmol/L Chloride (98-107) mmol/L Carbon Dioxide (21-32) mmol/L Anion Gap (3-11) BUN (7-18) mg/dl Creatinine (0.6-1.2) mg/dl Est Cr Clr Drug Dosing ml/min Est GFR ( Amer) ml/min Est GFR (Non-Af Amer) ml/min BUN/Creatinine Ratio (10-20) Glucose (70-99) mg/dl POC Glucose 187 H 186 H 248 H (70-99) mg/dl Calcium (8.5-10.1) mg/dl Phosphorus (2.5-4.9) mg/dl Magnesium (1.8-2.4) mg/dl 11/22/20 11/22/20 11/22/20 Range/Units 23:09 22:07 20:06 WBC (4.8-10.8) K/uL RBC (4.2-5.4) M/uL Hgb (12.0-16.0) g/dL Hct (37-47) % MCV (80-100) fL MCH (25-34) pg MCHC (32-36) g/dL RDW Std Deviation (36.4-46.3) fL RDW Coeff of Man (11.5-14.5) % Plt Count (130-400) K/uL MPV (7.4-10.4) fL Sodium (136-145) mmol/L Potassium (3.5-5.1) mmol/L Chloride (98-107) mmol/L Carbon Dioxide (21-32) mmol/L Anion Gap (3-11) BUN (7-18) mg/dl Creatinine (0.6-1.2) mg/dl Est Cr Clr Drug Dosing ml/min Est GFR ( Amer) ml/min Est GFR (Non-Af Amer) ml/min BUN/Creatinine Ratio (10-20) Glucose (70-99) mg/dl POC Glucose 300 H 366 H* 410 H* (70-99) mg/dl Calcium (8.5-10.1) mg/dl Phosphorus (2.5-4.9) mg/dl Magnesium (1.8-2.4) mg/dl 11/22/20 11/22/20 11/22/20 Range/Units 20:05 16:52 16:51 WBC (4.8-10.8) K/uL RBC (4.2-5.4) M/uL Hgb (12.0-16.0) g/dL Hct (37-47) % MCV (80-100) fL MCH (25-34) pg MCHC (32-36) g/dL RDW Std Deviation (36.4-46.3) fL RDW Coeff of Man (11.5-14.5) % Plt Count (130-400) K/uL MPV (7.4-10.4) fL Sodium (136-145) mmol/L Potassium (3.5-5.1) mmol/L Chloride (98-107) mmol/L Carbon Dioxide (21-32) mmol/L Anion Gap (3-11) BUN (7-18) mg/dl Creatinine (0.6-1.2) mg/dl Est Cr Clr Drug Dosing ml/min Est GFR ( Amer) ml/min Est GFR (Non-Af Amer) ml/min BUN/Creatinine Ratio (10-20) Glucose (70-99) mg/dl POC Glucose 407 H* 460 H* 490 H* (70-99) mg/dl Calcium (8.5-10.1) mg/dl Phosphorus (2.5-4.9) mg/dl Magnesium (1.8-2.4) mg/dl 11/22/20 Range/Units 12:00 WBC (4.8-10.8) K/uL RBC (4.2-5.4) M/uL Hgb (12.0-16.0) g/dL Hct (37-47) % MCV (80-100) fL MCH (25-34) pg MCHC (32-36) g/dL RDW Std Deviation (36.4-46.3) fL RDW Coeff of Man (11.5-14.5) % Plt Count (130-400) K/uL MPV (7.4-10.4) fL Sodium (136-145) mmol/L Potassium (3.5-5.1) mmol/L Chloride (98-107) mmol/L Carbon Dioxide (21-32) mmol/L Anion Gap (3-11) BUN (7-18) mg/dl Creatinine (0.6-1.2) mg/dl Est Cr Clr Drug Dosing ml/min Est GFR ( Amer) ml/min Est GFR (Non-Af Amer) ml/min BUN/Creatinine Ratio (10-20) Glucose (70-99) mg/dl POC Glucose 261 H (70-99) mg/dl Calcium (8.5-10.1) mg/dl Phosphorus (2.5-4.9) mg/dl Magnesium (1.8-2.4) mg/dl Medications Administered Current Inpatient Medications Albuterol (Albuterol Hfa 8 Gm Inhaler) 2 puffs INH QIDR PRN PRN Reason: Wheezing Stop: 11/28/20 09:59 Aspirin (Aspirin 81 Mg Ectab) 81 mg PO [facility] Stop: 12/21/20 08:59 Last Admin: 11/23/20 08:35 Dose: 81 mg Documented by: Atorvastatin Calcium (Atorvastatin 40 Mg Tab) 40 mg PO [facility] Stop: 12/21/20 08:59 Last Admin: 11/23/20 08:35 Dose: 40 mg Documented by: Carvedilol (Carvedilol 6.25 Mg Tab) 6.25 mg PO BID [facility] Stop: 12/21/20 08:59 Last Admin: 11/23/20 08:35 Dose: 6.25 mg Documented by: Clopidogrel Bisulfate (Clopidogrel Bisulfate 75 Mg Tab) 75 mg PO QAM [facility] Stop: 12/21/20 08:59 Last Admin: 11/23/20 08:35 Dose: 75 mg Documented by: Dextrose (Dextrose 50% 50 Ml Syringe) 25 - 50 ml IV UD PRN; Protocol PRN Reason: Hypoglycemia Protocol Stop: 12/21/20 04:57 Doxycycline Hyclate (Doxycycline Hyclate 100 Mg Cap) 100 mg PO BID [facility] Stop: 11/29/20 20:59 Last Admin: 11/23/20 08:35 Dose: 100 mg Documented by: Famotidine (Famotidine 40 Mg Tablet) 40 mg PO DAILY [facility] Stop: 12/21/20 08:59 Last Admin: 11/23/20 08:35 Dose: 40 mg Documented by: Furosemide (Furosemide 40 Mg Tab) 40 mg PO QAM [facility] Stop: 12/22/20 08:59 Last Admin: 11/23/20 08:35 Dose: 40 mg Documented by: Glucagon (Glucagon For Inj 1 Mg Vial) 1 mg SQ UD PRN; Protocol PRN Reason: Hypoglycemia Protocol Stop: 12/21/20 04:57 Glucose (Glucose 10 Tabs/Tube) 4 - 8 tabs PO UD PRN; Protocol PRN Reason: Hypoglycemia Protocol Stop: 12/21/20 04:57 Glucose (Glucose 40% Gel 15 Gm Tube) 15 - 30 gm PO UD PRN; Protocol PRN Reason: Hypoglycemia Protocol Stop: 12/21/20 04:57 Heparin Sodium (Porcine) (Heparin Sod 5,000 Unit/0.5 Ml Vial) 5,000 units SQ Q8 KALLIE Stop: 12/21/20 05:59 Last Admin: 11/23/20 05:43 Dose: 5,000 units Documented by: Dexamethasone 6 mg/ Syringe 1.5 mls @ 1 mls/min IV DAILY KALLIE Stop: 12/22/20 08:59 Last Admin: 11/23/20 08:37 Dose: 1 mls/min Documented by: Insulin Aspart (Insulin Aspart 100 Units/Ml 3 Ml Pen) 0 units SC ACHS KALLIE Stop: 12/23/20 03:59 Last Admin: 11/23/20 08:38 Dose: 14 units Documented by: Insulin Human NPH (Insulin Human Nph) 80 units SC TODAY@0730 [facility] Stop: 12/23/20 07:44 Last Admin: 11/23/20 08:36 Dose: 80 units Documented by: Lactobacillus Acidoph/Casei/Rhamnos (Advanced Probiotic 1250 Mg Capsule) 2 cap PO DAILY [facility] Stop: 12/22/20 17:29 Last Admin: 11/23/20 08:35 Dose: 2 cap Documented by: Levothyroxine Sodium (Levothyroxine Sodium 175 Mcg Tablet) 175 mcg PO DAILYBB [facility] Stop: 12/21/20 06:29 Last Admin: 11/23/20 05:43 Dose: 175 mcg Documented by: Loratadine (Loratadine 10 Mg Tab) [facility] Stop: 12/21/20 08:59 Last Admin: 11/23/20 08:34 Dose: 10 mg Documented by: Miscellaneous (Carbohydrates For Hypoglycemia ) 15 - 30 gm PO UD PRN PRN Reason: Hypoglycemia Protocol Stop: 12/21/20 04:57 Miscellaneous Information (Pharmacy Glycemic Mgmt Consult) 1 ea N/A UD PRN PRN Reason: Consult Stop: 12/22/20 16:58 Sodium Polystyrene Sulfonate (Sodium Polystyrene Sulfonate 15g/60ml Susp) 15 gm PO NOW STA Stop: 11/23/20 11:46
[2020-11-23] MEDS ORDERED: SODIUM POLYSTYRENE SULFONATE 15G/60ML SUSP PO STA (11:51)
--- NOTE | 2020-11-23 14:18 | Pharmacy Report ---
Pharmacy Glycemic Short Note 2 - Date of Service November 23, 2020 - Glycemic Short BSG Results (Last 24 hours): 11/22/20 11/22/20 11/22/20 16:51 16:52 20:05 Glucose POC Glucose 490 H* 460 H* 407 H* 11/22/20 11/22/20 11/22/20 20:06 22:07 23:09 Glucose POC Glucose 410 H* 366 H* 300 H 11/23/20 11/23/20 11/23/20 00:09 01:10 01:49 Glucose POC Glucose 248 H 186 H 187 H 11/23/20 11/23/20 11/23/20 02:59 04:02 05:55 Glucose 164 H POC Glucose 140 H 157 H 11/23/20 11/23/20 07:15 11:01 Glucose POC Glucose 193 H 291 H OUTPATIENT ANTIDIABETIC REGIMEN: * NPH 75 units SC qAM, 45 units SC qPM * Novolog 30 units SC qAM, 10 units SC qPM + sliding scale * HbA1c: 8.5% (11/14/20) ASSESSMENT: 11/23: * Patient transitioned of insulin infusion early this morning. After reviewing data from past admissions on dexamethasone, I initiated a morning heavy NPH dosing scheme. Novolog was also tightened further. Of note, the patient received a lower dose of novolog than intended this morning per CR NovoLog scale and is likely contributing to the elevated lunchtime BSG. * Patient remains on IV dex and is tolerating a diet. 11/22 * VW is a 75 year old female who was admitted on 11/21/20 with COVID-19 pneumonia * Started on dexamethasone 6 mg IV daily yesterday morning * BSGs trended up yesterday, 82, 205, 286, and 404 mg/dL - likely in light of significant basal insulin deficiency and IV steroids * Initial inpatient basal of Lantus 5 units BID is significantly below outpatient doses * BSGs today of 162, 261, and 460 mg/dL * Pharmacy consulted at dinnertime for BSG of 460 mg/dL * Attempted to utilize IV insulin bolus with tightened Novolog and NPH in lieu of insulin infusion, but BSG still 410 mg/dL at HS * Discussed with hospitalist and will initiate IV insulin infusion PLAN FOR INPATIENT GLYCEMIC CONTROL: * Basal insulin * NPH 80 units this morning * NPH 10 units SC with dinner * Correctional Insulin with NOVOLOGer scale ACHS or Q6hrs while NPO * Goal Range: Low 110 mg/dL - High 140 mg/dL * Correction Factor: 10 mg/dL/unit (20 mg/dl/unit at HS) * Nutritional / Prandial insulin per carb ratio of 1 unit per 3 grams CHO consumed PLAN FOR DISCHARGE: * tbd
[2020-11-23] MEDS: guaiFENesin 600 MG TABCR PO SCH (20:44)
[2020-11-24 06:03] LABS: Hemoglobin 10.6 g/dL (12.0-16.0); Mean Corpuscular Hemoglobin 25.9 pg (25-34); Mean Corpuscular Hgb Conc 31.2 g/dL (32-36); Mean Corpuscular Volume 82.9 fL (80-100); Mean Platelet Volume 9.2 fL (7.4-10.4); Platelet Count 395 K/uL (130-400); RDW Coefficient of Variation 17.2 % (11.5-14.5); RDW Standard Deviation 52.7 fL (36.4-46.3); White Blood Count 13.26 K/uL (4.8-10.8)
[2020-11-24] MEDS: HEPARIN SOD 5,000 UNIT/0.5 ML VIAL SQ SCH ×3 (06:14→14:45)
[2020-11-24] MEDS: LEVOTHYROXINE SODIUM 175 MCG TABLET PO SCH (06:15)
[2020-11-24 06:39] LABS: BUN Creatinine Ratio 33.3 (10-20); Calcium 8.5 mg/dl (8.5-10.1); Creatinine Clr Calc Pharmacy 31.9 ml/min; Est GFR (African American) 31.1 ml/min; Est GFR (Non-African American) 26.9 ml/min; Magnesium 2.3 mg/dl (1.8-2.4); Phosphorus 4.9 mg/dl (2.5-4.9)
[2020-11-24] MEDS: carvediloL 6.25 MG TAB PO SCH ×2 (07:13→22:37)
[2020-11-24] MEDS: LORATADINE 10 MG TAB PO SCH (07:14)
[2020-11-24] MEDS: dexAMETHasone 6 MG in SYRINGE 0 ML IV SCH (07:14)
[2020-11-24] MEDS: FUROSEMIDE 40 MG TAB PO SCH (07:14)
[2020-11-24] MEDS: FAMOTIDINE 40 MG TABLET PO SCH (07:14)
[2020-11-24] MEDS: ADVANCED PROBIOTIC 1250 MG CAPSULE PO SCH (07:15)
[2020-11-24] MEDS: ASPIRIN 81 MG ECTAB PO SCH (07:15)
[2020-11-24] MEDS: ATORVASTATIN 40 MG TAB PO SCH (07:15)
[2020-11-24] MEDS: DOXYCYCLINE HYCLATE 100 MG CAP PO SCH (07:15)
[2020-11-24] MEDS: guaiFENesin 600 MG TABCR PO SCH ×2 (07:15→22:37)
[2020-11-24] MEDS: CLOPIDOGREL BISULFATE 75 MG TAB PO SCH (07:16)
--- NOTE | 2020-11-24 07:52 | Hospitalist Progress Note ---
Date of Service November 24, 2020 Assessment & Plan (1) Encephalopathy: Multifactorial : Hypoxemic respiratory failure secondary to persistent COVID-19 pneumonia rule out pulmonary embolism given thrombocytosis Hypoglycemia secondary to poor p.o. intake, deconditioning Improved mentation after initial intervention at the ER. Patient just recently admitted for COVID-19 pneumonia Discharged on November 19, readmitted on November 20 During that admission, patient was started on remdesivir and dexamethasone, remdesivir was then stopped due to renal function Currently on Decadron, nebs CT PE obtained on admission, to rule out PE, negative for PE Procalcitonin negative Initially on 1 L nasal cannula supplemental oxygen, however with ambulation, with PT required 4 L as she would desaturate to 85% (on 11/22) (11/23) she was able to ambulate on 1L O2 (11/24) Pt was on RA AM now 2L CT also shows Multifocal airspace consolidation is consistent with the reported history of a viral pneumonia. Radiographic follow-up to resolution is recommended. Continue supplemental O2 Received IV Zosyn in the ED, then antibiotics stopped on admission, started Doxy 100 twice daily Guaifenesin, incentive spirometry, flutter valve Pulmonology consult if without improvement DM2 insulin requiring Hypoglycemic on admission, recent hemoglobin A1c was 8.15 Nov 2020 Patient became hyperglycemic, in the setting of Decadron use Glycemic pharmacy consulted, required IV insulin, now off IV insulin CKD stage III Baseline creatinine 1.5-1.7 , now increased 1.8-1.9 Chronic systolic heart failure secondary to ischemic cardiomyopathy (EF 45%, cardiac catheterization 2018) -patient euvolemic to dry on admission -Continue Coreg, restarted home Lasix, cont. to hold home lisinopril for now Abdominal pain/ periumbilical hernia -(11/24) Presented with severe abdominal pain, in the area apparently got hernia -Patient experienced pain in that area before - +Nausea and vomiting Stat KUB, CT, pelvis obtained, patient received IV antiemetics and pain meds, WBC 14 K (in the setting of steroids), lactic acid 1.6 Surgery consulted Patient has chronically incarcerated umbilical hernia, CT images reviewed by surgery, and radiology, small loop of nonobstructed bowel and mostly fat in her hernia, surgery able to reduce most of the hernia -N.p.o., hold subcu heparin, repeat CT with p.o. contrast in the morning, if worsening she may need exploration and hernia repair. Will try to treat her non- operatively as she has multiple co-morbidities and risk factors for complications. Hx CAD status post stent -continue aspirin Plavix, Coreg and statin PAF, patient NSR hypertension, slight elevated on admission, now BP at goal, facilitate home BP meds hyperlipidemia on statin Rx Chronic anemia, hemoglobin at baseline Hypothyroidism -euthyroid as of TSH from last month -Continue Synthroid may need help slow History of asthma On albuterol p.r.n. Obesity BMI 44 Counseling on weight loss PT OT eval DVT prophylaxis. Heparin subcu Full code Admission and Anticipated Discharge Date Admission Date: November 21, 2020 Subjective Patient seen in follow-up of hypoxia, COVID-19 infection hypo/hyperglycemia This AM pt on RA However developed severe abd. pain, in the region of her umb. hernia, + nausea and vomiting Stat KUB and CT abd. pelvis obtained Pt received IV PPI, morphine, antiemetic Surgery consulted Of note blood glucose difficult to manage - was found hypoglycemic on re- admission, then after restarting decadron BS in 400s and requiring IV insulin Review of Systems Review of Systems: All systems reviewed & are unremarkable except as noted in HPI & below Constitutional: no fever and no chills Respiratory: + cough (improved) and + dyspnea (improved) Cardiovascular: no chest pain and no palpitations Gastrointestinal: + abdominal pain, + nausea and + vomiting Physical Exam Physical Exam: GENERAL: Comfortable, morbidly obese, pleasant HEENT: NC/AT, pale palpebral conjunctivae, nasal cannula in place NECK : Supple, short neck, no tenderness CHEST : mild diffuse rhonchi, no wheezing, no tenderness HEART : RRR, no obvious murmurs ABDOMEN: Some distention, obese, soft, nontender EXTREMITIES : B/l LE swelling, no LE tenderness, moves extremities NEUROLOGIC : alert and oriented x3, no facial asymmetry, speech fluent, moves extremities SKIN: Pallor , warm Results & Data Results & Data ([facility]) Vital Signs (Past 12 Hours) Vital Signs Temp Pulse Pulse Resp BP Pulse Ox Pulse Ox 11/24/20 07:07 36.8 C 52 L 19 137/71 95 11/24/20 04:00 94 11/24/20 03:19 55 L 11/24/20 02:39 36.9 C 51 L 20 144/83 H 95 11/23/20 23:13 37.2 C 53 L 19 158/60 H 96 11/23/20 20:01 55 L Laboratory Results 11/24/20 11/24/20 11/24/20 Range/Units 07:34 05:23 05:23 WBC 13.26 H (4.8-10.8) K/uL RBC 4.10 L (4.2-5.4) M/uL Hgb 10.6 L (12.0-16.0) g/dL Hct 34.0 L (37-47) % MCV 82.9 (80-100) fL MCH 25.9 (25-34) pg MCHC 31.2 L (32-36) g/dL RDW Std Deviation 52.7 H (36.4-46.3) fL RDW Coeff of Man 17.2 H (11.5-14.5) % Plt Count 395 (130-400) K/uL MPV 9.2 (7.4-10.4) fL Sodium 141 (136-145) mmol/L Potassium 5.0 (3.5-5.1) mmol/L Chloride 112 H (98-107) mmol/L Carbon Dioxide 22 (21-32) mmol/L Anion Gap 7.0 (3-11) BUN 60 H (7-18) mg/dl Creatinine 1.80 H (0.6-1.2) mg/dl Est Cr Clr Drug Dosing 31.9 ml/min Est GFR ( Amer) 31.1 ml/min Est GFR (Non-Af Amer) 26.9 ml/min BUN/Creatinine Ratio 33.3 H (10-20) Glucose 121 H (70-99) mg/dl POC Glucose 173 H (70-99) mg/dl Calcium 8.5 (8.5-10.1) mg/dl Phosphorus 4.9 (2.5-4.9) mg/dl Magnesium 2.3 (1.8-2.4) mg/dl 11/23/20 11/23/20 11/23/20 Range/Units 20:37 16:33 11:01 WBC (4.8-10.8) K/uL RBC (4.2-5.4) M/uL Hgb (12.0-16.0) g/dL Hct (37-47) % MCV (80-100) fL MCH (25-34) pg MCHC (32-36) g/dL RDW Std Deviation (36.4-46.3) fL RDW Coeff of Man (11.5-14.5) % Plt Count (130-400) K/uL MPV (7.4-10.4) fL Sodium (136-145) mmol/L Potassium (3.5-5.1) mmol/L Chloride (98-107) mmol/L Carbon Dioxide (21-32) mmol/L Anion Gap (3-11) BUN (7-18) mg/dl Creatinine (0.6-1.2) mg/dl Est Cr Clr Drug Dosing ml/min Est GFR ( Amer) ml/min Est GFR (Non-Af Amer) ml/min BUN/Creatinine Ratio (10-20) Glucose (70-99) mg/dl POC Glucose 202 H 156 H 291 H (70-99) mg/dl Calcium (8.5-10.1) mg/dl Phosphorus (2.5-4.9) mg/dl Magnesium (1.8-2.4) mg/dl Medications Administered Current Inpatient Medications Albuterol (Albuterol Hfa 8 Gm Inhaler) 2 puffs INH QIDR PRN PRN Reason: Wheezing Stop: 11/28/20 09:59 Aspirin (Aspirin 81 Mg Ectab) 81 mg PO [facility] Stop: 12/21/20 08:59 Last Admin: 11/24/20 07:15 Dose: 81 mg Documented by: Atorvastatin Calcium (Atorvastatin 40 Mg Tab) 40 mg PO [facility] Stop: 12/21/20 08:59 Last Admin: 11/24/20 07:15 Dose: 40 mg Documented by: Carvedilol (Carvedilol 6.25 Mg Tab) 6.25 mg PO BID [facility] Stop: 12/21/20 08:59 Last Admin: 11/24/20 07:13 Dose: Not Given Documented by: Clopidogrel Bisulfate (Clopidogrel Bisulfate 75 Mg Tab) [facility] Stop: 12/21/20 08:59 Last Admin: 11/24/20 07:16 Dose: 75 mg Documented by: Dextrose (Dextrose 50% 50 Ml Syringe) 25 - 50 ml IV UD PRN; Protocol PRN Reason: Hypoglycemia Protocol Stop: 12/21/20 04:57 Doxycycline Hyclate (Doxycycline Hyclate 100 Mg Cap) 100 mg PO BID [facility] Stop: 11/29/20 20:59 Last Admin: 11/24/20 07:15 Dose: 100 mg Documented by: Famotidine (Famotidine 40 Mg Tablet) 40 mg PO DAILY [facility] Stop: 12/21/20 08:59 Last Admin: 11/24/20 07:14 Dose: 40 mg Documented by: Furosemide (Furosemide 40 Mg Tab) 40 mg PO QAM [facility] Stop: 12/22/20 08:59 Last Admin: 11/24/20 07:14 Dose: 40 mg Documented by: Glucagon (Glucagon For Inj 1 Mg Vial) 1 mg SQ UD PRN; Protocol PRN Reason: Hypoglycemia Protocol Stop: 12/21/20 04:57 Glucose (Glucose 10 Tabs/Tube) 4 - 8 tabs PO UD PRN; Protocol PRN Reason: Hypoglycemia Protocol Stop: 12/21/20 04:57 Glucose (Glucose 40% Gel 15 Gm Tube) 15 - 30 gm PO UD PRN; Protocol PRN Reason: Hypoglycemia Protocol Stop: 12/21/20 04:57 Guaifenesin (Guaifenesin 600 Mg Tabcr) 600 mg PO Q12 [facility] Stop: 12/23/20 20:59 Last Admin: 11/24/20 07:15 Dose: 600 mg Documented by: Heparin Sodium (Porcine) (Heparin Sod 5,000 Unit/0.5 Ml Vial) 5,000 units SQ Q8 [facility] Stop: 12/21/20 05:59 Last Admin: 11/24/20 06:14 Dose: 5,000 units Documented by: Dexamethasone 6 mg/ Syringe 1.5 mls @ 1 mls/min IV DAILY [facility] Stop: 12/22/20 08:59 Last Admin: 11/24/20 07:14 Dose: 1 mls/min Documented by: Insulin Aspart (Insulin Aspart 100 Units/Ml 3 Ml Pen) 0 units SC HS [facility] Stop: 12/23/20 20:59 Last Admin: 11/23/20 22:03 Dose: 4 units Documented by: Insulin Aspart (Insulin Aspart 100 Units/Ml 3 Ml Pen) 0 units SC AC [facility] Stop: 12/23/20 16:29 Last Admin: 11/23/20 17:18 Dose: 17 units Documented by: Insulin Human NPH (Insulin Human Nph) 80 units SC TODAY@0730 [facility] Stop: 12/23/20 07:44 Last Admin: 11/23/20 08:36 Dose: 80 units Documented by: Insulin Human NPH (Insulin Human Nph) 10 units [place] TODAY@1730 [facility] Stop: 12/23/20 17:29 Last Admin: 11/23/20 17:20 Dose: 10 units Documented by: Lactobacillus Acidoph/Casei/Rhamnos (Advanced Probiotic 1250 Mg Capsule) 2 cap PO DAILY [facility] Stop: 12/22/20 17:29 Last Admin: 11/24/20 07:15 Dose: 2 cap Documented by: Levothyroxine Sodium (Levothyroxine Sodium 175 Mcg Tablet) 175 mcg PO DAILYBB [facility] Stop: 12/21/20 06:29 Last Admin: 11/24/20 06:15 Dose: 175 mcg Documented by: Loratadine (Loratadine 10 Mg Tab) 10 mg PO QAM [facility] Stop: 12/21/20 08:59 Last Admin: 11/24/20 07:14 Dose: 10 mg Documented by: Miscellaneous (Carbohydrates For Hypoglycemia ) 15 - 30 gm PO UD PRN PRN Reason: Hypoglycemia Protocol Stop: 12/21/20 04:57 Miscellaneous Information (Pharmacy Glycemic Mgmt Consult) 1 ea N/A UD PRN PRN Reason: Consult Stop: 12/22/20 16:58
[2020-11-24] MEDS: INSULIN HUMAN NPH SC SCH ×2 (08:40→17:27)
[2020-11-24] MEDS: INSULIN ASPART 100 UNITS/ML 3 ML PEN SC SCH ×4 (08:40→22:37)
[2020-11-24] MEDS ORDERED: MoRPHine SULFATE 2 MG/ML CARP IV STA (10:32)
[2020-11-24] MEDS ORDERED: MoRPHine SULFATE 2 MG/ML CARP ONE (10:37)
[2020-11-24] MEDS ORDERED: PANTOprazole 40 MG in SYRINGE 0 ML IV ONE (10:45)
[2020-11-24] MEDS ORDERED: PROCHLORPERAZINE 5 MG in SYRINGE 4 ML IV ONE (11:00)
[2020-11-24 11:01] LABS: Hematocrit (blood only) 36.1 % (37-47); Hemoglobin 11.6 g/dL (12.0-16.0); Mean Corpuscular Hemoglobin 25.9 pg (25-34); Mean Corpuscular Volume 80.6 fL (80-100); Platelet Count 363 K/uL (130-400); RDW Coefficient of Variation 17.1 % (11.5-14.5); RDW Standard Deviation 50.8 fL (36.4-46.3); Red Blood Count 4.48 M/uL (4.2-5.4); White Blood Count 14.97 K/uL (4.8-10.8)
[2020-11-24 11:19] LABS: BUN Creatinine Ratio 30.9 (10-20); Calcium 9.1 mg/dl (8.5-10.1); Creatinine Clr Calc Pharmacy 29.9 ml/min; Est GFR (African American) 28.8 ml/min; Est GFR (Non-African American) 24.9 ml/min; Potassium 4.7 mmol/L (3.5-5.1)
--- NOTE | 2020-11-24 11:21 | XRay Report ---
KUB HISTORY: Acute generalized abdominal pain abd. pain COMPARISON: CTA chest 11/21/2020 FINDINGS: Bibasilar opacities are better characterized on comparison chest CT. Cholecystectomy. Nonob structive bowel gas pattern. The right lateral abdomen is excluded from the [id number] secondary t o patient body habitus. Moderate fecal retention of the right hemicolon with nonobstructive bowel gas pattern. No pneumoperitoneum. Cholecystectomy. No urolith identified. Lumbar dextroscoliosis with mu ltilevel degenerative changes of the spine, pelvis and hips. IMPRESSION: 1. Nonobstructive bowel gas pattern. 2. Cholecystectomy. 3. Moderate fecal retention of the right hemicolon. ACT 112: Negative or not required by law. The above report was generated using voice recognition software. It may contain grammatical, syntax o r spelling errors. Electronically signed by: Jerad Bragg M.D. 11/24/2020 11:19 AM
[2020-11-24 11:24] LABS: Mean Corpuscular Hgb Conc 32.1 g/dL (32-36)
--- NOTE | 2020-11-24 12:16 | Surgery Consultation ---
Date of Consultation November 24, 2020 Assessment & Plan (1) Periumbilical hernia: This is a 75yF with a PMH of heart disease on asa/plavix, DM, and CKD who was admitted early this month with Covid who was re-admitted with shortness of breath and hypoglycemia on 11/21. We are consulted as this AM patient reports acute onset abdominal pain located around her belly button, associated with nausea/vomiting. KUB obtained showed a nonobstructive bowel gas pattern. A CT a/p performed thereafter revealed a moderate sized periumbilical hernia contains mesenteric fat, trace free fluid and a fluid-filled mildly prominent nondilated loop of small bowel. There is narrowing of the bowel loop as it enters and exits the hernia sac. WBC 14 (she is on steroids), Cr: 1.9, Lactate: 1.6. Vital signs are stable. My attending evaluated patient and attempted to reduce hernia. She felt better afterwards. She is on plavix and morbidly obese. Would prefer to monitor patient and no need for acute surgical intervention at this time. Keep NPO for the time being. Will repeat CT with oral contrast tomorrow. Can continue plavix for now, but will hold AM SQH. Supervising Physician Co-Signing Physician Notes I personally saw and evaluated the patient with Cira Avilez PA-C and agree with the assessment and plan 75 yo obese female with chronically incarcerated umbilical hernia -CT images and results reviewed, has a small loop of nonobstucted bowel and mostly fat in her hernia -I was able to reduce most of the hernia -Will keep her NPO for today, hold her SubQ heparin -Will repeat the CT with PO contrast in the AM and if worsening she may need exploration and hernia repair -Will try to treat her non-operatively as she has multiple co-morbidities and risk factors for complications such as antiplatelets, morbid obesity, steroid use -Will follow History of Present Illness Attending Physician: Fran Zayas MD History of Present Illness This is a 75yF with a PMH of heart disease on asa/plavix, DM, and CKD who was admitted early this month with Covid who was re-admitted with shortness of david ath and hypoglycemia on 11/21. We are consulted as this AM patient reports acute onset abdominal pain located around her belly button, associated with nausea/vomiting. She reports having a small BM this AM. Patient underwent a KUB which showed a non obstructive bowel gas pattern. A CT a/p was performed that showed a moderate sized periumbilical hernia contains mesenteric fat, trace free fluid and a fluid-filled mildly prominent nondilated loop of small bowel. There is narrowing of the bowel loop as it enters and exits the hernia sac. Allergies Allergy/AdvReac Type Severity Reaction Status Date / Time adhesive Allergy Mild Band Aid - Verified 11/21/20 00:35 Rash Sulfa (Sulfonamide Allergy Mild nausea/vomi Verified 11/21/20 00:35 Antibiotics) ting Home Medications Medication Instructions Recorded Confirmed Type albuterol sulfate 90 mcg/actuation 2 puffs INH QID PRN 02/22/19 11/21/20 History aerosol inhaler aspirin 81 mg tablet,delayed 81 mg PO QAM 02/22/19 11/21/20 History release benzonatate 100 mg capsule 100 mg PO TID PRN 02/22/19 11/21/20 History carvedilol 6.25 mg tablet 6.25 mg PO BID #60 tab 02/22/19 11/21/20 Rx furosemide 40 mg tablet 40 mg PO QAM 02/22/19 11/21/20 History glucagon (human recombinant) 1 mg 1 mg IM Q20M PRN 02/22/19 11/21/20 History solution for injection loratadine 10 mg tablet 10 mg PO QAM 02/22/19 11/21/20 History Accu-Chek Fastclix Lancet Drum #102 ea NS 03/10/19 10/16/20 Rx Accu-Chek Guide Glucose Meter #1 ea NS 03/10/19 10/16/20 Rx acyclovir 1 applic TOPICAL UD PRN 04/14/19 11/21/20 History atorvastatin 40 mg PO QAM 04/14/19 11/21/20 History clopidogrel 75 mg PO QAM 04/14/19 11/21/20 History diclofenac sodium 2 - 4 g TOP QID PRN 04/14/19 11/21/20 History levothyroxine 175 mcg PO QAM 04/14/19 11/21/20 History nystatin 1 applic TOPICAL DAILY PRN 04/14/19 11/21/20 History triamcinolone acetonide 1 applic TOPICAL BID PRN 04/14/19 11/21/20 History BD Ultra-Fine Esha Pen Needle 32 #300 ea NS 09/15/19 10/16/20 Rx gauge x 5/32" Accu-Chek Guide test strips #300 ea NS 09/12/20 10/16/20 Rx cholecalciferol (vitamin D3) 25 25 mcg PO DAILY 10/16/20 11/21/20 History mcg (1,000 unit) capsule famotidine 40 mg tablet 40 mg PO DAILY 10/16/20 11/21/20 History insulin NPH isoph U-100 human 100 45 - 75 unit SUBCUT AMPM ml 10/16/20 11/21/20 History unit/mL subcutaneous suspension insulin aspart U-100 100 unit/mL 40 unit SQ DIRECTED ml 10/16/20 11/21/20 History (3 mL) subcutaneous pen insulin syringe-needle U-100 1 mL #10 ea 10/16/20 10/16/20 History 30 gauge x 1/2" lisinopril 2.5 mg tablet 5 mg PO QAM tab 10/16/20 11/21/20 History omega-3 fatty acids-fish oil 360 1 cap PO DAILY 10/16/20 11/21/20 History mg-1,200 mg capsule Patient History Medical History Acute hypoxemic respiratory failure Anemia Anemia Asthma inhaler prn Chronic kidney disease follows with Dr. Bliss Diabetes mellitus with microalbuminuria Diabetes mellitus, type 2 Diabetes type 2, uncontrolled GERD (gastroesophageal reflux disease) Hyperlipidemia Hypertension Hypocalcemia Hypoparathyroidism Hypothyroidism Morbid obesity with BMI of 40.0-44.9, adult Multifocal pneumonia Myocardial Infarction 2003--follows with Dr. Vallejo On anticoagulant therapy plavix daily Osteoarthritis Surgical History History of bilateral tubal ligation History of cardiac cath total of 4---last 12/2018 @ [facility] with Dr. Vallejo History of cholecystectomy History of heart artery stent x4 total--last 12/2018 @ [facility]--pt unsure what kind, requested info be obtained from Dr. Vallejo's office History of right cataract extraction History of thyroidectomy History of tooth extraction all teeth removed Family History Mother Family history of diabetes mellitus Cardiovascular disease Sister Family history of diabetes mellitus Other No family history of adverse response to anesthesia Social History Smoking Status: Former smoker Tobacco Type: Cigarettes Smoking End Date: 1965; Second Hand Exposure: No; Hx Alcohol Use: No Hx Substance Use: No Preferred Language: German Communication Ability: Effective Mobile Service Rv Technician Required: No Beliefs That Will Affect Care: None Current Living Situation: Family Current Living Situation Comment: lives with sister Other Information That Helps Us Care for You: No Feels Safe at Home: Yes Safety Concerns: Feels Safe At This Time Assistive Devices: Walker Review of Systems Constitutional: no fever and no chills Eyes: no worsening vision Ear, Nose, Mouth, Throat: no hearing loss Respiratory: no cough and no dyspnea Cardiovascular: no chest pain and no dyspnea on exertion Gastrointestinal: + abdominal pain, + nausea and + vomiting Genitourinary: no dysuria Musculoskeletal: no back pain and no neck pain Integumentary: no skin ulcer and no sores Neurologic: no falls Psychiatric: no behavioral changes and no depression Hematologic / Lymphatic: no easy bleeding and no easy bruising On plavix Physical Exam Physical Exam: awake Constitutional: WD/WN, vitals as above Eyes: PERRL, conjunctivae normal, anicteric sclerae ENMT: external ear and nose normal, oropharynx normal Neck: trachea midline, no thyromegaly Respiratory: normal respiratory effort, lungs clear to auscultation Cardiovascular: RRR, no murmur, no edema Gastrointestinal (Abdomen): Inspection/Auscultation: + abdominal wall ecchymosis; + abdomen abnormal to inspection and abdomen not distended Percussion/Palpation: + abdomen tender (periumbilically), abdomen soft and + hernia (+partially reducible umbilcal hernia); no guarding Results & Data ([facility]) Vital Signs (Past 12 Hours) Vital Signs Temp Pulse Pulse Pulse Resp BP Pulse Ox 11/24/20 11:30 51 L 19 159/68 H 95 11/24/20 11:02 36.3 C L 56 L 19 177/80 H 96 11/24/20 07:07 36.8 C 52 L 19 137/71 95 11/24/20 04:00 11/24/20 03:19 55 L 11/24/20 02:39 36.9 C 51 L 20 144/83 H 95 Pulse Ox 11/24/20 11:30 11/24/20 11:02 11/24/20 07:07 11/24/20 04:00 94 11/24/20 03:19 11/24/20 02:39 KUB HISTORY: Acute generalized abdominal pain abd. pain COMPARISON: CTA chest 11/21/2020 FINDINGS: Bibasilar opacities are better characterized on comparison chest CT. Cholecystectomy. Nonobstructive bowel gas pattern. The right lateral abdomen is excluded from the [id number] secondary to patient body habitus. Moderate fecal retention of the right hemicolon with nonobstructive bowel gas pattern. No pneumoperitoneum. Cholecystectomy. No urolith identified. Lumbar dextroscoliosis with multilevel degenerative changes of the spine, pelvis and hips. IMPRESSION: 1. Nonobstructive bowel gas pattern. 2. Cholecystectomy. 3. Moderate fecal retention of the right hemicolon. ACT 112: Negative or not required by law. The above report was generated using voice recognition software. It may contain grammatical, syntax or spelling errors. Electronically signed by: Jerad Bragg M.D. 11/24/2020 11:19 AM ABDOMEN AND PELVIS CT WITHOUT CONTRAST CT DOSE: 1675.49 mGy.cm HISTORY: Acute generalized abdominal pain. COVID Positive. abd. pain, hx of umb. hernia TECHNIQUE: Multiaxial CT images of the abdomen and pelvis were performed without contrast. A dose lowering technique was utilized adhering to the principles of ALARA. COMPARISON STUDY: CTA chest 11/21/2020 FINDINGS: Cardiomegaly. Coronary artery calcifications. Bibasilar subpleural predominant groundglass and consolidative opacities. No pneumatosis or pneumoperitoneum. The unenhanced spleen, mildly atrophic pancreas, adrenal glands and liver appear unremarkable. Cholecystectomy. 9 mm peripherally calcified splenic artery aneurysm. Portion morphology of the kidneys with bilateral cortical thinning. There is mild bilateral pelviectasis without urolith or hydronephrosis. Unremarkable urinary bladder. Prominence of the fundal uterus may reflect uterine fibroids. No adnexal mass lesion. Cuts 5 plaque the abdominal aorta without aneurysm. There is no adenopathy. Duodenal diverticulum. No bowel obstruction or bowel wall thickening. Mild fecal retention. Normal appendix. Moderate sized periumbilical hernia contains mesenteric fat and a nonobstructed loop of fluid-filled small bowel measures up to 2.4 cm transversely. There is narrowing of the loop as it enters and exits the hernia sac. Trace fluid within the hernia is also noted. No acute fracture. IMPRESSION: 1. Bibasilar airspace opacities compatible with viral pneumonia. 2. Normal appendix. 3. Moderate sized periumbilical hernia contains mesenteric fat, trace free fluid and a fluid-filled mildly prominent nondilated loop of small bowel. There is narrowing of the bowel loop as it enters and exits the hernia sac. Follow-up recommended to exclude developing closed-loop obstruction. 4. Additional findings as above. ACT 112: Negative or not required by law. The above report was generated using voice recognition software. It may contain grammatical, syntax or spelling errors. Electronically signed by: Jerad Bragg M.D. 11/24/2020 12:28 PM PG Care Time/CCT Total # of Minutes Spent Total Time Spent with Patient: Total time spent is greater than 50% in coordination of care (as documented) at patient's floor/unit and/or counseling patient: Coding Level of Care Code 89936 Initial Inpt Care Lvl 2 Diagnoses Periumbilical hernia K42.9
--- NOTE | 2020-11-24 12:29 | CT Scan Report ---
ABDOMEN AND PELVIS CT WITHOUT CONTRAST CT DOSE: 1675.49 mGy.cm HISTORY: Acute generalized abdominal pain. COVID Positive. abd. pain, hx of umb. hernia TECHNIQUE: Multiaxial CT images of the abdomen and pelvis were performed without contrast. A dose lo wering technique was utilized adhering to the principles of ALARA. COMPARISON STUDY: CTA chest 11/21/2020 FINDINGS: Cardiomegaly. Coronary artery calcifications. Bibasilar subpleural predominant groundglass and consol idative opacities. No pneumatosis or pneumoperitoneum. The unenhanced spleen, mildly atrophic pancrea s, adrenal glands and liver appear unremarkable. Cholecystectomy. 9 mm peripherally calcified splenic artery aneurysm. Portion morphology of the kidneys with bilateral cortical thinning. There is mild bilateral pelviecta sis without urolith or hydronephrosis. Unremarkable urinary bladder. Prominence of the fundal uterus may reflect uterine fibroids. No adnexal mass lesion. Cuts 5 plaque the abdominal aorta without aneur ysm. There is no adenopathy. Duodenal diverticulum. No bowel obstruction or bowel wall thickening. Mild fecal retention. Normal ap pendix. Moderate sized periumbilical hernia contains mesenteric fat and a nonobstructed loop of fluid -filled small bowel measures up to 2.4 cm transversely. There is narrowing of the loop as it enters a nd exits the hernia sac. Trace fluid within the hernia is also noted. No acute fracture. IMPRESSION: 1. Bibasilar airspace opacities compatible with viral pneumonia. 2. Normal appendix. 3. Moderate sized periumbilical hernia contains mesenteric fat, trace free fluid and a fluid-filled m ildly prominent nondilated loop of small bowel. There is narrowing of the bowel loop as it enters and exits the hernia sac. Follow-up recommended to exclude developing closed-loop obstruction. 4. Additional findings as above. ACT 112: Negative or not required by law. The above report was generated using voice recognition software. It may contain grammatical, syntax o r spelling errors. Electronically signed by: Jerad Bragg M.D. 11/24/2020 12:28 PM
--- NOTE | 2020-11-24 12:58 | Pharmacy Report ---
Pharmacy Glycemic Short Note 2 - Date of Service November 24, 2020 - Glycemic Short BSG Results (Last 24 hours): 11/23/20 11/23/20 11/24/20 16:33 20:37 05:23 Glucose 121 H POC Glucose 156 H 202 H 11/24/20 11/24/20 11/24/20 07:34 10:52 10:57 Glucose 198 H POC Glucose 173 H 205 H OUTPATIENT ANTIDIABETIC REGIMEN: * NPH 75 units SC qAM, 45 units SC qPM * Novolog 30 units SC qAM, 10 units SC qPM + sliding scale * HbA1c: 8.5% (11/14/20) ASSESSMENT: 11/24: * BSGs improved over last 24 hrs * Fasting BSG 121-173 this AM (121 on chemistry) with 90 units of NPH given yesterday - will continue the same NPH dose today, but consider increase in PM NPH dose tomorrow if fasting elevated again * Post-prandial BSGs elevated 2 of 3 yesterday. Dexamethasone 6mg IV daily in the AM continues. Will increase Novolog prandial dose (no change to AM NPH at this time) 11/23: * Patient transitioned of insulin infusion early this morning. After reviewing data from past admissions on dexamethasone, I initiated a morning heavy NPH dosing scheme. Novolog was also tightened further. Of note, the patient received a lower dose of novolog than intended this morning per CR NovoLog scale and is likely contributing to the elevated lunchtime BSG. * Patient remains on IV dex and is tolerating a diet. 11/22 * VW is a 75 year old female who was admitted on 11/21/20 with COVID-19 pneumonia * Started on dexamethasone 6 mg IV daily yesterday morning * BSGs trended up yesterday, 82, 205, 286, and 404 mg/dL - likely in light of significant basal insulin deficiency and IV steroids * Initial inpatient basal of Lantus 5 units BID is significantly below outpatient doses * BSGs today of 162, 261, and 460 mg/dL * Pharmacy consulted at dinnertime for BSG of 460 mg/dL * Attempted to utilize IV insulin bolus with tightened Novolog and NPH in lieu of insulin infusion, but BSG still 410 mg/dL at HS * Discussed with hospitalist and will initiate IV insulin infusion PLAN FOR INPATIENT GLYCEMIC CONTROL: * Basal insulin - no change * NPH 80 units this morning * NPH 10 units SC with dinner * Correctional Insulin - increase prandial dose * NOVOLOG per scale ACHS or Q6hrs while NPO * Goal Range: Low 110 mg/dL - High 140 mg/dL * Correction Factor: 10 mg/dL/unit (20 mg/dl/unit at HS) * Nutritional / Prandial insulin per carb ratio of 1 unit per 2.5 grams CHO consumed (no carb coverage at HS) PLAN FOR DISCHARGE: * tbd
[2020-11-24] MEDS ORDERED: MoRPHine SULFATE 2 MG/ML CARP IV PRN (13:11)
[2020-11-24] MEDS ORDERED: SODIUM CHLORIDE 0.9% 500 ML IV SCH (15:00)
[2020-11-24] MEDS ORDERED: DOXYCYCLINE HYCLATE 100 MG in DEXTROSE 5% 100 ML IV SCH (21:00)
[2020-11-24] MEDS: DOXYCYCLINE HYCLATE 100 MG in 0.9 % SODIUM CHLORIDE 100 ML IV SCH (21:46)
[2020-11-25 06:25] LABS: Hematocrit (blood only) 37.9 % (37-47); Hemoglobin 12.1 g/dL (12.0-16.0); Mean Corpuscular Hemoglobin 26.5 pg (25-34); Mean Corpuscular Hgb Conc 31.9 g/dL (32-36); Mean Corpuscular Volume 82.9 fL (80-100); Mean Platelet Volume 9.2 fL (7.4-10.4); Platelet Count 454 K/uL (130-400); RDW Coefficient of Variation 17.3 % (11.5-14.5); RDW Standard Deviation 52.4 fL (36.4-46.3); Red Blood Count 4.57 M/uL (4.2-5.4); White Blood Count 18.76 K/uL (4.8-10.8)
[2020-11-25] MEDS: LEVOTHYROXINE SODIUM 175 MCG TABLET PO SCH (06:28)
[2020-11-25 06:57] LABS: BUN Creatinine Ratio 34.5 (10-20); Calcium 8.8 mg/dl (8.5-10.1); Creatinine Clr Calc Pharmacy 37.3 ml/min; Est GFR (African American) 38.2 ml/min; Magnesium 2.2 mg/dl (1.8-2.4); Phosphorus 5.1 mg/dl (2.5-4.9); Potassium 4.2 mmol/L (3.5-5.1)
[2020-11-25] MEDS ORDERED: SODIUM CHLORIDE 0.9% 1000ML 1,000 ML IV SCH (07:00)
[2020-11-25] MEDS: DEXTROSE 50% 50 ML SYRINGE IV PRN (07:12)
--- NOTE | 2020-11-25 07:44 | Hospitalist Progress Note ---
Date of Service November 25, 2020 Assessment & Plan (1) Encephalopathy: Multifactorial : Hypoxemic respiratory failure secondary to persistent COVID-19 pneumonia rule out pulmonary embolism given thrombocytosis Hypoglycemia secondary to poor p.o. intake, deconditioning Improved mentation after initial intervention at the ER. Patient just recently admitted for COVID-19 pneumonia Discharged on November 19, readmitted on November 20 During that admission, patient was started on remdesivir and dexamethasone, remdesivir was then stopped due to renal function Currently on Decadron, nebs CT PE obtained on admission, to rule out PE, negative for PE Procalcitonin negative Initially on 1 L nasal cannula supplemental oxygen, however with ambulation, with PT required 4 L as she would desaturate to 85% (on 11/22) (11/23) she was able to ambulate on 1L O2 (11/24) Pt was on RA AM now 2L (11/25) Pt is on RA CT also shows Multifocal airspace consolidation is consistent with the reported history of a viral pneumonia. Radiographic follow-up to resolution is recommended. Continue supplemental O2 as needed Received IV Zosyn in the ED, then antibiotics stopped on admission, started Doxy 100 twice daily Guaifenesin, incentive spirometry, flutter valve Pulmonology consult if without improvement DM2 insulin requiring Hypoglycemic on admission, recent hemoglobin A1c was 8.15 Nov 2020 Patient became hyperglycemic, in the setting of Decadron use Glycemic pharmacy consulted, required IV insulin, now off IV insulin CKD stage III Baseline creatinine 1.5-1.7 Chronic systolic heart failure secondary to ischemic cardiomyopathy (EF 45%, cardiac catheterization 2018) -patient euvolemic to dry on admission -Continue Coreg, restarted home Lasix, cont. to hold home lisinopril for now Abdominal pain/ periumbilical hernia -(11/24) Presented with severe abdominal pain, in the area apparently got hernia -Patient never experienced pain in that area before - +Nausea and vomiting Stat KUB, CT, pelvis obtained, patient received IV antiemetics and pain meds, WBC 14 K (in the setting of steroids), lactic acid 1.6 Surgery consulted Patient has chronically incarcerated umbilical hernia, CT images reviewed by surgery, and radiology, small loop of nonobstructed bowel and mostly fat in her hernia, surgery able to reduce most of the hernia -N.p.o., hold subcu heparin, repeat CT with p.o. contrast in the morning, if worsening she may need exploration and hernia repair. Will try to treat her non- operatively as she has multiple co-morbidities and risk factors for complications. 11/25 -repeat CT scan without bowel in the hernia. Patient is feeling much better. Currently tolerating clear liquid diet without any difficulty. Denies any abdominal pain, nausea or vomiting Hx CAD status post stent -continue aspirin Plavix, Coreg and statin PAF, patient NSR hypertension, slight elevated on admission, now BP at goal, facilitate home BP meds hyperlipidemia on statin Rx Chronic anemia, hemoglobin at baseline Hypothyroidism -euthyroid as of TSH from last month -Continue Synthroid may need help slow History of asthma On albuterol p.r.n. Obesity BMI 44 Counseling on weight loss PT OT eval DVT prophylaxis. Heparin subcu Full code Dispo: Patient has granddaughter working at [email or web address], considering discharge there, CM aware Admission and Anticipated Discharge Date Admission Date: November 21, 2020 Subjective Patient seen in follow-up of hypoxia, COVID-19 infection hypo/hyperglycemia Today pt on RA Yesterday developed severe abd. pain, in the region of her umb. hernia, + nausea and vomiting CT abd. pelvis obtained Surgeon was able to reduce the bowel out of her hernia Patient is feeling much better now, repeat CT scan obtained, no bowel in the hernia noted today She was started on diet, currently tolerating clear liquids without any difficulty Denies any abdominal pain, nausea or vomiting Denies any fevers or chills chest pain shortness of breath Says her cough is improving as well Hypoglycemic this morning, blood glucose difficult to manage - was found hypoglycemic on re-admission, then after restarting decadron BS in 400s and requiring IV insulin Review of Systems Review of Systems: All systems reviewed & are unremarkable except as noted in HPI & below Constitutional: no fever and no chills Respiratory: no cough and no dyspnea Cardiovascular: no chest pain and no palpitations Gastrointestinal: no abdominal pain, no nausea and no vomiting Physical Exam Physical Exam: GENERAL: Comfortable, morbidly obese, pleasant HEENT: NC/AT, pale palpebral conjunctivae, nasal cannula in place NECK : Supple, short neck, no tenderness CHEST : mild diffuse rhonchi, no wheezing, no tenderness HEART : RRR, no obvious murmurs ABDOMEN: Some distention, obese, soft, nontender EXTREMITIES : B/l LE swelling, no LE tenderness, moves extremities NEUROLOGIC : alert and oriented x3, no facial asymmetry, speech fluent, moves extremities SKIN: Pallor , warm Results & Data Results & Data ([facility]) Vital Signs (Past 12 Hours) Vital Signs Temp Pulse Pulse Resp BP Pulse Ox Pulse Ox 11/25/20 07:30 35.8 C L 56 L 18 126/74 90 11/25/20 04:00 94 11/25/20 03:26 37.1 C 60 18 137/56 L 92 11/24/20 23:19 69 11/24/20 23:15 36.7 C 63 17 161/75 H 96 Laboratory Results 11/25/20 11/25/20 11/25/20 Range/Units 07:27 06:59 05:24 WBC (4.8-10.8) K/uL RBC (4.2-5.4) M/uL Hgb (12.0-16.0) g/dL Hct (37-47) % MCV (80-100) fL MCH (25-34) pg MCHC (32-36) g/dL RDW Std Deviation (36.4-46.3) fL RDW Coeff of Man (11.5-14.5) % Plt Count (130-400) K/uL MPV (7.4-10.4) fL Sodium 143 (136-145) mmol/L Potassium 4.2 (3.5-5.1) mmol/L Chloride 113 H (98-107) mmol/L Carbon Dioxide 25 (21-32) mmol/L Anion Gap 5.0 (3-11) BUN 52 H (7-18) mg/dl Creatinine 1.52 H D (0.6-1.2) mg/dl Est Cr Clr Drug Dosing 37.3 ml/min Est GFR ( Amer) 38.2 ml/min Est GFR (Non-Af Amer) 33.0 ml/min BUN/Creatinine Ratio 34.5 H (10-20) Glucose 38 L* (70-99) mg/dl POC Glucose 108 H 51 L* (70-99) mg/dl Lactate (0.4-2.0) mmol/L Calcium 8.8 (8.5-10.1) mg/dl Phosphorus 5.1 H (2.5-4.9) mg/dl Magnesium 2.2 (1.8-2.4) mg/dl 11/25/20 11/24/20 11/24/20 Range/Units 05:24 20:08 15:56 WBC 18.76 H (4.8-10.8) K/uL RBC 4.57 (4.2-5.4) M/uL Hgb 12.1 (12.0-16.0) g/dL Hct 37.9 (37-47) % MCV 82.9 (80-100) fL MCH 26.5 (25-34) pg MCHC 31.9 L (32-36) g/dL RDW Std Deviation 52.4 H (36.4-46.3) fL RDW Coeff of Man 17.3 H (11.5-14.5) % Plt Count 454 H (130-400) K/uL MPV 9.2 (7.4-10.4) fL Sodium (136-145) mmol/L Potassium (3.5-5.1) mmol/L Chloride (98-107) mmol/L Carbon Dioxide (21-32) mmol/L Anion Gap (3-11) BUN (7-18) mg/dl Creatinine (0.6-1.2) mg/dl Est Cr Clr Drug Dosing ml/min Est GFR ( Amer) ml/min Est GFR (Non-Af Amer) ml/min BUN/Creatinine Ratio (10-20) Glucose (70-99) mg/dl POC Glucose 167 H 247 H (70-99) mg/dl Lactate (0.4-2.0) mmol/L Calcium (8.5-10.1) mg/dl Phosphorus (2.5-4.9) mg/dl Magnesium (1.8-2.4) mg/dl 11/24/20 11/24/20 11/24/20 Range/Units 10:57 10:52 10:52 WBC 14.97 H (4.8-10.8) K/uL RBC 4.48 (4.2-5.4) M/uL Hgb 11.6 L (12.0-16.0) g/dL Hct 36.1 L (37-47) % MCV 80.6 (80-100) fL MCH 25.9 (25-34) pg MCHC 32.1 (32-36) g/dL RDW Std Deviation 50.8 H (36.4-46.3) fL RDW Coeff of Man 17.1 H (11.5-14.5) % Plt Count 363 (130-400) K/uL MPV 9.0 (7.4-10.4) fL Sodium 140 (136-145) mmol/L Potassium 4.7 (3.5-5.1) mmol/L Chloride 111 H (98-107) mmol/L Carbon Dioxide 24 (21-32) mmol/L Anion Gap 5.0 (3-11) BUN 59 H (7-18) mg/dl Creatinine 1.92 H (0.6-1.2) mg/dl Est Cr Clr Drug Dosing 29.9 ml/min Est GFR ( Amer) 28.8 ml/min Est GFR (Non-Af Amer) 24.9 ml/min BUN/Creatinine Ratio 30.9 H (10-20) Glucose 198 H (70-99) mg/dl POC Glucose 205 H (70-99) mg/dl Lactate (0.4-2.0) mmol/L Calcium 9.1 (8.5-10.1) mg/dl Phosphorus (2.5-4.9) mg/dl Magnesium (1.8-2.4) mg/dl 11/24/20 Range/Units 10:52 WBC (4.8-10.8) K/uL RBC (4.2-5.4) M/uL Hgb (12.0-16.0) g/dL Hct (37-47) % MCV (80-100) fL MCH (25-34) pg MCHC (32-36) g/dL RDW Std Deviation (36.4-46.3) fL RDW Coeff of Man (11.5-14.5) % Plt Count (130-400) K/uL MPV (7.4-10.4) fL Sodium (136-145) mmol/L Potassium (3.5-5.1) mmol/L Chloride (98-107) mmol/L Carbon Dioxide (21-32) mmol/L Anion Gap (3-11) BUN (7-18) mg/dl Creatinine (0.6-1.2) mg/dl Est Cr Clr Drug Dosing ml/min Est GFR ( Amer) ml/min Est GFR (Non-Af Amer) ml/min BUN/Creatinine Ratio (10-20) Glucose (70-99) mg/dl POC Glucose (70-99) mg/dl Lactate 1.6 (0.4-2.0) mmol/L Calcium (8.5-10.1) mg/dl Phosphorus (2.5-4.9) mg/dl Magnesium (1.8-2.4) mg/dl Medications Administered Current Inpatient Medications Albuterol (Albuterol Hfa 8 Gm Inhaler) 2 puffs INH QIDR PRN PRN Reason: Wheezing Stop: 11/28/20 09:59 Aspirin (Aspirin 81 Mg Ectab) 81 mg PO QAM [facility] Stop: 12/21/20 08:59 Last Admin: 11/24/20 07:15 Dose: 81 mg Documented by: Atorvastatin Calcium (Atorvastatin 40 Mg Tab) [facility] Stop: 12/21/20 08:59 Last Admin: 11/24/20 07:15 Dose: 40 mg Documented by: Carvedilol (Carvedilol 6.25 Mg Tab) 6.25 mg PO BID [facility] Stop: 12/21/20 08:59 Last Admin: 11/24/20 22:37 Dose: Not Given Documented by: Clopidogrel Bisulfate (Clopidogrel Bisulfate 75 Mg Tab) 75 mg PO QAM [facility] Stop: 12/21/20 08:59 Last Admin: 11/24/20 07:16 Dose: 75 mg Documented by: Dextrose (Dextrose 50% 50 Ml Syringe) 25 - 50 ml IV UD PRN; Protocol PRN Reason: Hypoglycemia Protocol Stop: 12/21/20 04:57 Last Admin: 11/25/20 07:12 Dose: 25 ml Documented by: Doxycycline Hyclate (Doxycycline Hyclate 100 Mg Cap) 100 mg PO BID [facility] Stop: 11/29/20 20:59 Last Admin: 11/24/20 07:15 Dose: 100 mg Documented by: Famotidine (Famotidine 40 Mg Tablet) 40 mg PO DAILY [facility] Stop: 12/21/20 08:59 Last Admin: 11/24/20 07:14 Dose: 40 mg Documented by: Furosemide (Furosemide 40 Mg Tab) 40 mg PO QAM [facility] Stop: 12/22/20 08:59 Last Admin: 11/24/20 07:14 Dose: 40 mg Documented by: Glucagon (Glucagon For Inj 1 Mg Vial) 1 mg SQ UD PRN; Protocol PRN Reason: Hypoglycemia Protocol Stop: 12/21/20 04:57 Glucose (Glucose 10 Tabs/Tube) 4 - 8 tabs PO UD PRN; Protocol PRN Reason: Hypoglycemia Protocol Stop: 12/21/20 04:57 Glucose (Glucose 40% Gel 15 Gm Tube) 15 - 30 gm PO UD PRN; Protocol PRN Reason: Hypoglycemia Protocol Stop: 12/21/20 04:57 Guaifenesin (Guaifenesin 600 Mg Tabcr) 600 mg PO Q12 KALLIE Stop: 12/23/20 20:59 Last Admin: 11/24/20 22:37 Dose: Not Given Documented by: Heparin Sodium (Porcine) (Heparin Sod 5,000 Unit/0.5 Ml Vial) 5,000 units SQ Q8 KALLIE Stop: 12/21/20 05:59 Last Admin: 11/24/20 14:45 Dose: 5,000 units Documented by: Dexamethasone 6 mg/ Syringe 1.5 mls @ 1 mls/min IV DAILY KALLIE Stop: 12/22/20 08:59 Last Admin: 11/24/20 07:14 Dose: 1 mls/min Documented by: Pantoprazole Sodium 40 mg/ (Syringe) 10 mls @ 5 mls/min IV DAILY@1100 KALLIE Stop: 12/25/20 10:59 Doxycycline Hyclate 100 mg/ (Sodium Chloride) 110 mls @ 50 mls/hr IV Q12H KALLIE Stop: 12/01/20 20:59 Last Infusion: 11/25/20 01:24 Dose: Infused Documented by: Sodium Chloride (Nss 1000ml) 1,000 mls @ 125 mls/hr IV .Q8H KALLIE Stop: 12/25/20 06:59 Insulin Aspart (Insulin Aspart 100 Units/Ml 3 Ml Pen) 0 units SC HS KALLIE Stop: 12/23/20 20:59 Last Admin: 11/24/20 22:37 Dose: Not Given Documented by: Insulin Aspart (Insulin Aspart 100 Units/Ml 3 Ml Pen) 0 units SC AC KALLIE Stop: 12/23/20 16:29 Last Admin: 11/24/20 17:26 Dose: 11 units Documented by: Insulin Human NPH (Insulin Human Nph) 80 units SC TODAY@0730 [facility] Stop: 12/23/20 07:44 Last Admin: 11/24/20 08:40 Dose: 80 units Documented by: Insulin Human NPH (Insulin Human Nph) 10 units FL TODAY@1730 [facility] Stop: 12/23/20 17:29 Last Admin: 11/24/20 17:27 Dose: 10 units Documented by: Lactobacillus Acidoph/Casei/Rhamnos (Advanced Probiotic 1250 Mg Capsule) 2 cap PO DAILY [facility] Stop: 12/22/20 17:29 Last Admin: 11/24/20 07:15 Dose: 2 cap Documented by: Levothyroxine Sodium (Levothyroxine Sodium 175 Mcg Tablet) 175 mcg PO DAILYBB [facility] Stop: 12/21/20 06:29 Last Admin: 11/25/20 06:28 Dose: Not Given Documented by: Loratadine (Loratadine 10 Mg Tab) 10 mg PO QAM [facility] Stop: 12/21/20 08:59 Last Admin: 11/24/20 07:14 Dose: 10 mg Documented by: Miscellaneous (Carbohydrates For Hypoglycemia ) 15 - 30 gm PO UD PRN PRN Reason: Hypoglycemia Protocol Stop: 12/21/20 04:57 Miscellaneous Information (Pharmacy Glycemic Mgmt Consult) 1 ea N/A UD PRN PRN Reason: Consult Stop: 12/22/20 16:58 Morphine Sulfate (Morphine Sulfate 2 Mg/Ml Carp) 2 mg IV Q4H PRN PRN Reason: Pain Stop: 12/08/20 13:10
[2020-11-25] MEDS: INSULIN ASPART 100 UNITS/ML 3 ML PEN SC SCH ×4 (08:10→20:51)
--- NOTE | 2020-11-25 08:10 | CT Scan Report ---
CT abd pelvis oral con only CLINICAL HISTORY: Umbilical hernia. COMPARISON STUDY: 11/24/2020 FINDINGS: The patient was scanned following administration of dilute oral contrast. No intravenous contrast was administered. A dose reduction technique was utilized according the principles of ALARA Images through the lung bases reveal calcified right hilar lymph nodes. There are multifocal pulmonar y airspace opacities, consistent with a multifocal pneumonia, likely viral. No hepatic lesions are visualized in this noncontrast study. Gallbladder surgically absent. No splenic masses are visualized. No pancreatic masses are visualized. No adrenal masses are visualized. There is a horseshoe kidney. No renal, ureteral, or bladder calculi are visualized. There are no transition zones indicate bowel obstruction. There is no evidence of acute diverticuliti s. The appendix appears normal. There is no evidence of abdominal aortic aneurysm. There is no pathologic adenopathy. There is an enlarged fibroid uterus. There is no free air. There is no ascites. There is a large fat-containing umbilical hernia measuring 10 cm. The hernia neck measures 23 mm. The re is no longer a bowel loop within the hernia sac. IMPRESSION: 1. Bilateral pulmonary airspace opacities consistent with a multifocal pneumonia 2. No evidence of bowel obstruction. No evidence of free air 3. Normal appendix. No evidence of acute diverticulitis 4. 10 cm fat-containing umbilical hernia. The hernia neck measures 23 mm. There is no longer a bowel loop within the hernia sac. 5. Enlarged fibroid uterus ACT 112: Negative or not required by law. Electronically signed by: Rusty Alonso M.D. 11/25/2020 8:08 AM
--- NOTE | 2020-11-25 08:11 | XRay Report ---
XR chest 1V portable CLINICAL HISTORY: follow up COMPARISON STUDY: 11/21/2020 FINDINGS: The heart remains mildly enlarged. There is mild improvement in the multifocal pulmonary ai rspace opacities consistent with a multifocal pneumonia. There are no cervical pleural effusions. The re is no pneumothorax.[ IMPRESSION: Mild improvement in the multifocal pulmonary airspace opacities consistent with a multifo julieth pneumonia. ACT 112: Negative or not required by law. Electronically signed by: Rusty Alonso M.D. 11/25/2020 8:10 AM
[2020-11-25] MEDS: DOXYCYCLINE HYCLATE 100 MG in 0.9 % SODIUM CHLORIDE 100 ML IV SCH ×2 (09:05→20:47)
[2020-11-25] MEDS: dexAMETHasone 6 MG in SYRINGE 0 ML IV SCH (09:21)
[2020-11-25] MEDS: carvediloL 6.25 MG TAB PO SCH (09:56)
--- NOTE | 2020-11-25 10:18 | Surgery Progress Note ---
Date of Service November 25, 2020 Assessment & Plan (1) Periumbilical hernia: Doing well after reduction of bowel containing portion of hernia CT results and images reviewed, she no longer has any incarcerated bowel in her hernia or any signs of bowel obstruction Would advance diet as tolerated She would be an extremely high risk surgical candidate with her recent COVID PNA, Obesity, Antiplatelets If she tolerates diet, ok to discharge from surgical standpoint Admission and Anticipated Discharge Date Admission Date: November 21, 2020 Subjective Pt seen and examined. Abdominal pain has resolved. No N/V. No fevers. Review of Systems Review of Systems: All systems reviewed & are unremarkable except as noted in Subjective Physical Exam Constitutional: WD/WN, vitals as above Gastrointestinal (Abdomen): Inspection/Auscultation: abdomen not distended Percussion/Palpation: abdomen soft and + hernia (partially reducible umbilical hernia); abdomen nontender and no guarding Musculoskeletal: no cyanosis or clubbing, extremities motor strength 5/5 Skin: no rashes, warm and dry Results & Data ([facility]) Vital Signs (Past 12 Hours) Vital Signs Temp Pulse Pulse Resp BP Pulse Ox Pulse Ox 11/25/20 08:16 36.4 C L 11/25/20 07:30 35.8 C L 56 L 18 126/74 90 11/25/20 04:00 94 11/25/20 03:26 37.1 C 60 18 137/56 L 92 11/24/20 23:19 69 11/24/20 23:15 36.7 C 63 17 161/[address] A/P 11/25/20 IMPRESSION: 1. Bilateral pulmonary airspace opacities consistent with a multifocal pneumonia 2. No evidence of bowel obstruction. No evidence of free air 3. Normal appendix. No evidence of acute diverticulitis 4. 10 cm fat-containing umbilical hernia. The hernia neck measures 23 mm. There is no longer a bowel loop within the hernia sac. 5. Enlarged fibroid uterus PG Care Time/CCT Total # of Minutes Spent Total Time Spent with Patient: Total time spent is greater than 50% in coordination of care (as documented) at patient's floor/unit and/or counseling patient: Coding Level of Care Code 19988 Subseq Hosp Care Lvl 1 Diagnoses Periumbilical hernia K42.9
[2020-11-25] MEDS ORDERED: POLYETHYLENE (MIRALAX) 17 GM PACK PO PRN (10:35)
[2020-11-25] MEDS: LORATADINE 10 MG TAB PO SCH (10:42)
[2020-11-25] MEDS: CLOPIDOGREL BISULFATE 75 MG TAB PO SCH (10:42)
[2020-11-25] MEDS: ATORVASTATIN 40 MG TAB PO SCH (10:42)
[2020-11-25] MEDS: FAMOTIDINE 40 MG TABLET PO SCH (10:43)
[2020-11-25] MEDS: ASPIRIN 81 MG ECTAB PO SCH (10:43)
[2020-11-25] MEDS: guaiFENesin 600 MG TABCR PO SCH ×2 (10:43→20:50)
[2020-11-25] MEDS: PANTOprazole 40 MG in SYRINGE 0 ML IV SCH (12:08)
--- NOTE | 2020-11-25 14:06 | Pharmacy Report ---
Pharmacy Glycemic Short Note 2 - Date of Service November 25, 2020 - Glycemic Short BSG Results (Last 24 hours): 11/24/20 11/24/20 11/25/20 15:56 20:08 05:24 Glucose 38 L* POC Glucose 247 H 167 H 11/25/20 11/25/20 11/25/20 06:59 07:27 12:13 Glucose POC Glucose 51 L* 108 H 74 OUTPATIENT ANTIDIABETIC REGIMEN: * NPH 75 units SC qAM, 45 units SC qPM * Novolog 30 units SC qAM, 10 units SC qPM + sliding scale * HbA1c: 8.5% (11/14/20) ASSESSMENT: 11/25 * Pt has received 128 units of insulin over the past 24hrs * 90 units of basal with Lantus * 38 units of bolus with NovoLog * BSGs [id number] mg/dl * Pt with LOW BSG this AM (BSG 51 mg/dl) secondary to too much basal insulin board and NPO status * NPH held this AM for LOW * Will re-start NPH at dinner time at reduced dosing of 40 units * No changes needed to CF/CR 11/24: * BSGs improved over last 24 hrs * Fasting BSG 121-173 this AM (121 on chemistry) with 90 units of NPH given yesterday - will continue the same NPH dose today, but consider increase in PM NPH dose tomorrow if fasting elevated again * Post-prandial BSGs elevated 2 of 3 yesterday. Dexamethasone 6mg IV daily in the AM continues. Will increase Novolog prandial dose (no change to AM NPH at this time) 11/23: * Patient transitioned of insulin infusion early this morning. After reviewing data from past admissions on dexamethasone, I initiated a morning heavy NPH d osing scheme. Novolog was also tightened further. Of note, the patient received a lower dose of novolog than intended this morning per CR NovoLog scale and is likely contributing to the elevated lunchtime BSG. * Patient remains on IV dex and is tolerating a diet. 11/22 * VW is a 75 year old female who was admitted on 11/21/20 with COVID-19 pneumonia * Started on dexamethasone 6 mg IV daily yesterday morning * BSGs trended up yesterday, 82, 205, 286, and 404 mg/dL - likely in light of significant basal insulin deficiency and IV steroids * Initial inpatient basal of Lantus 5 units BID is significantly below outpatient doses * BSGs today of 162, 261, and 460 mg/dL * Pharmacy consulted at dinnertime for BSG of 460 mg/dL * Attempted to utilize IV insulin bolus with tightened Novolog and NPH in lieu of insulin infusion, but BSG still 410 mg/dL at HS * Discussed with hospitalist and will initiate IV insulin infusion PLAN FOR INPATIENT GLYCEMIC CONTROL: * Basal insulin - decrease * NPH HOLD this morning * NPH 40 units SC with dinner * Correctional Insulin - no change * NOVOLOG per scale ACHS or Q6hrs while NPO * Goal Range: Low 110 mg/dL - High 140 mg/dL * Correction Factor: 10 mg/dL/unit (20 mg/dl/unit at HS) * Nutritional / Prandial insulin per carb ratio of 1 unit per 2.5 grams CHO consumed (no carb coverage at HS) PLAN FOR DISCHARGE: * tbd
[2020-11-25] MEDS ORDERED: INSULIN HUMAN NPH SC SCH (17:30)
[2020-11-25] MEDS: carvediloL 3.125 MG TAB PO SCH (20:50)
[2020-11-26] MEDS: DEXTROSE 50% 50 ML SYRINGE IV PRN (02:24)
--- NOTE | 2020-11-26 05:34 | Surgery Progress Note ---
Date of Service November 26, 2020 Assessment & Plan (1) Periumbilical hernia: Patient's hernia has been successfully reduced Repeat CT scan on 11/25/2020 did not show any evidence of bowel obstruction or incarceration Diet advancement has been tolerated No need for surgical intervention at this time Admission and Anticipated Discharge Date Admission Date: November 21, 2020 Supervising Physician Co-Signing Physician Notes I personally saw and evaluated the patient with Valdemar Roe PA-C and agree with the assessment and plan 75 yo obese female with chronically incarcerated umbilical hernia -Bowel remains reduced, she had a BM yesterday -She is tolerating liquids, advance diet as tolerated -Ok to discharge from surgical standpoint Subjective Patient is resting comfortably in bed. She denies any further nausea vomiting or abdominal pain. Her diet has been advanced which she has tolerated. Discussed with slot shift manager RN and no issues have been identified. Physical Exam Gastrointestinal (Abdomen): Abdomen is rotund and soft with positive bowel sounds. There is no pain with palpation. There is no rebound tenderness or guarding. Results & Data ([facility]) Vital Signs (Past 12 Hours) Vital Signs Temp Pulse Pulse Resp BP Pulse Ox 11/26/20 02:18 36.3 C L 64 20 148/75 H 91 11/25/20 22:50 36.6 C 65 16 112/68 94 11/25/20 21:33 90 11/25/20 19:37 36.5 C 68 18 131/55 L 91 PG Care Time/CCT Total # of Minutes Spent Total Time Spent with Patient: Total time spent is greater than 50% in coordination of care (as documented) at patient's floor/unit and/or counseling patient: Coding Level of Care Code 02942 Subseq Hosp Care Lvl 1 Diagnoses Periumbilical hernia K42.9
[2020-11-26] MEDS: LEVOTHYROXINE SODIUM 175 MCG TABLET PO SCH (05:43)
[2020-11-26 05:49] LABS: Hematocrit (blood only) 35.4 % (37-47); Hemoglobin 11.3 g/dL (12.0-16.0); Mean Corpuscular Hgb Conc 31.9 g/dL (32-36); Mean Corpuscular Volume 81.6 fL (80-100); Mean Platelet Volume 8.9 fL (7.4-10.4); Platelet Count 265 K/uL (130-400); RDW Coefficient of Variation 17.2 % (11.5-14.5); RDW Standard Deviation 51.6 fL (36.4-46.3); Red Blood Count 4.34 M/uL (4.2-5.4); White Blood Count 15.54 K/uL (4.8-10.8)
[2020-11-26 06:07] LABS: BUN Creatinine Ratio 34.9 (10-20); Calcium 8.9 mg/dl (8.5-10.1); Creatinine Clr Calc Pharmacy 42.3 ml/min; Est GFR (African American) 44.5 ml/min; Est GFR (Non-African American) 38.4 ml/min; Magnesium 1.9 mg/dl (1.8-2.4); Potassium 4.3 mmol/L (3.5-5.1)
--- NOTE | 2020-11-26 07:00 | Hospitalist Progress Note ---
Date of Service November 26, 2020 Assessment & Plan (1) Encephalopathy: Multifactorial : Hypoxemic respiratory failure secondary to persistent COVID-19 pneumonia rule out pulmonary embolism given thrombocytosis Hypoglycemia secondary to poor p.o. intake, deconditioning Improved mentation after initial intervention at the ER. Patient just recently admitted for COVID-19 pneumonia Discharged on November 19, readmitted on November 20 During that admission, patient was started on remdesivir and dexamethasone, remdesivir was then stopped due to renal function Currently on Decadron, nebs CT PE obtained on admission, to rule out PE, negative for PE Procalcitonin negative Initially on 1 L nasal cannula supplemental oxygen, however with ambulation, with PT required 4 L as she would desaturate to 85% (on 11/22) (11/23) she was able to ambulate on 1L O2 (11/24) Pt was on RA AM then 2L (11/25) Pt is on RA (11/26) Pt is on RA CT also shows Multifocal airspace consolidation is consistent with the reported history of a viral pneumonia. Radiographic follow-up to resolution is recommended. Continue supplemental O2 as needed Received IV Zosyn in the ED, then antibiotics stopped on admission, started Doxy 100 twice daily Guaifenesin, incentive spirometry, flutter valve DM2 insulin requiring Hypoglycemic on admission, recent hemoglobin A1c was 8.15 Nov 2020 Patient became hyperglycemic, in the setting of Decadron use Glycemic pharmacy consulted, required IV insulin, now off IV insulin Episode of hypoglycemia early AM again - in the setting of liquid diet and steroid Plan to stop steroid and advance diet CKD stage III Baseline creatinine 1.5-1.7 Chronic systolic heart failure secondary to ischemic cardiomyopathy (EF 45%, cardiac catheterization 2018) -patient euvolemic to dry on admission -Continue Coreg, restarted home Lasix, cont. to hold home lisinopril for now Abdominal pain/ periumbilical hernia -(11/24) Presented with severe abdominal pain, in the area of umbilical hernia -Patient never experienced pain in that area before - +Nausea and vomiting Stat KUB, CT, pelvis obtained, patient received IV antiemetics and pain meds, WBC 14 K (in the setting of steroids), lactic acid 1.6 Surgery consulted Patient has chronically incarcerated umbilical hernia, CT images reviewed by surgery, small loop of nonobstructed bowel and mostly fat in her hernia -Patient is status post successful reduction of periumbilical hernia by the surgeon 11/25 -repeat CT with p.o. contrast in the morning without bowel in the hernia -if worsening she may need exploration and hernia repair. Will try to treat her non-operatively as she has multiple co-morbidities and risk factors for complications. 11/25 -Patient is feeling much better. Currently tolerating clear liquid diet without any difficulty. Denies any abdominal pain, nausea or vomiting 11/26 -Patient now on full liquid diet, tolerating without difficulty. No abdominal pain nausea or vomiting. Hx CAD status post stent -continue aspirin Plavix, Coreg and statin PAF, patient NSR hypertension, slight elevated on admission, now BP at goal, facilitate home BP meds hyperlipidemia on statin Rx Chronic anemia, hemoglobin at baseline Hypothyroidism -euthyroid as of TSH from last month -Continue Synthroid may need help slow History of asthma On albuterol p.r.n. Obesity BMI 44 Counseling on weight loss PT OT eval DVT prophylaxis. Heparin subcu Full code Dispo: Patient has granddaughter working at [employer], considering discharge there, CM aware Admission and Anticipated Discharge Date Admission Date: November 21, 2020 Subjective Patient seen in follow-up of hypoxia, COVID-19 infection hypo/hyperglycemia Today pt on RA 2 days ago developed severe abd. pain, in the region of her umb. hernia, + nausea and vomiting CT abd. pelvis obtained Surgeon was able to reduce the bowel out of her hernia Patient is feeling much better now, repeat CT scan obtained, no bowel in the hernia noted anymore She was started on diet, currently tolerating full liquids Denies any abdominal pain, nausea or vomiting Denies any fevers or chills chest pain shortness of breath Says her cough is improving as well Blood glucose difficult to manage -episodes of hypoglycemia and hyperglycemia Review of Systems Review of Systems: All systems reviewed & are unremarkable except as noted in HPI & below Constitutional: no fever and no chills Respiratory: no cough and no dyspnea Cardiovascular: no chest pain and no palpitations Gastrointestinal: no abdominal pain, no nausea and no vomiting Physical Exam Physical Exam: GENERAL: Comfortable, morbidly obese, pleasant HEENT: NC/AT, pale palpebral conjunctivae, nasal cannula in place NECK : Supple, short neck, no tenderness CHEST : CTAB no wheezing, no crackles HEART : RRR, no obvious murmurs ABDOMEN: Some distention, obese, soft, nontender EXTREMITIES : B/l LE swelling, no LE tenderness, moves extremities NEUROLOGIC : alert and oriented x3, speech fluent, answers questions appropriately, moves extremities SKIN: Pallor , warm Results & Data Results & Data ([place]) Vital Signs (Past 12 Hours) Vital Signs Temp Pulse Pulse Resp BP Pulse Ox 11/26/20 02:18 36.3 C L 64 20 148/75 H 91 11/25/20 22:50 36.6 C 65 16 112/68 94 11/25/20 21:33 90 11/25/20 19:37 36.5 C 68 18 131/55 L 91 Laboratory Results 11/26/20 11/26/20 11/26/20 Range/Units 05:34 05:34 02:42 WBC 15.54 H (4.8-10.8) K/uL RBC 4.34 (4.2-5.4) M/uL Hgb 11.3 L (12.0-16.0) g/dL Hct 35.4 L (37-47) % MCV 81.6 (80-100) fL MCH 26.0 (25-34) pg MCHC 31.9 L (32-36) g/dL RDW Std Deviation 51.6 H (36.4-46.3) fL RDW Coeff of Man 17.2 H (11.5-14.5) % Plt Count 265 (130-400) K/uL MPV 8.9 (7.4-10.4) fL Sodium 143 (136-145) mmol/L Potassium 4.3 (3.5-5.1) mmol/L Chloride 116 H (98-107) mmol/L Carbon Dioxide 23 (21-32) mmol/L Anion Gap 4.0 (3-11) BUN 47 H (7-18) mg/dl Creatinine 1.34 H (0.6-1.2) mg/dl Est Cr Clr Drug Dosing 42.3 ml/min Est GFR ( Amer) 44.5 ml/min Est GFR (Non-Af Amer) 38.4 ml/min BUN/Creatinine Ratio 34.9 H (10-20) Glucose 55 L (70-99) mg/dl POC Glucose 181 H (70-99) mg/dl Lactate (0.4-2.0) mmol/L Calcium 8.9 (8.5-10.1) mg/dl Phosphorus 5.0 H (2.5-4.9) mg/dl Magnesium 1.9 (1.8-2.4) mg/dl Procalcitonin (0-0.5) ng/ml 11/26/20 11/26/20 11/25/20 Range/Units 02:23 02:21 20:28 WBC (4.8-10.8) K/uL RBC (4.2-5.4) M/uL Hgb (12.0-16.0) g/dL Hct (37-47) % MCV (80-100) fL MCH (25-34) pg MCHC (32-36) g/dL RDW Std Deviation (36.4-46.3) fL RDW Coeff of Man (11.5-14.5) % Plt Count (130-400) K/uL MPV (7.4-10.4) fL Sodium (136-145) mmol/L Potassium (3.5-5.1) mmol/L Chloride (98-107) mmol/L Carbon Dioxide (21-32) mmol/L Anion Gap (3-11) BUN (7-18) mg/dl Creatinine (0.6-1.2) mg/dl Est Cr Clr Drug Dosing ml/min Est GFR ( Amer) ml/min Est GFR (Non-Af Amer) ml/min BUN/Creatinine Ratio (10-20) Glucose (70-99) mg/dl POC Glucose 35 L* 32 L* 143 H (70-99) mg/dl Lactate (0.4-2.0) mmol/L Calcium (8.5-10.1) mg/dl Phosphorus (2.5-4.9) mg/dl Magnesium (1.8-2.4) mg/dl Procalcitonin (0-0.5) ng/ml 11/25/20 11/25/20 11/25/20 Range/Units 16:38 12:13 08:05 WBC (4.8-10.8) K/uL RBC (4.2-5.4) M/uL Hgb (12.0-16.0) g/dL Hct (37-47) % MCV (80-100) fL MCH (25-34) pg MCHC (32-36) g/dL RDW Std Deviation (36.4-46.3) fL RDW Coeff of Man (11.5-14.5) % Plt Count (130-400) K/uL MPV (7.4-10.4) fL Sodium (136-145) mmol/L Potassium (3.5-5.1) mmol/L Chloride (98-107) mmol/L Carbon Dioxide (21-32) mmol/L Anion Gap (3-11) BUN (7-18) mg/dl Creatinine (0.6-1.2) mg/dl Est Cr Clr Drug Dosing ml/min Est GFR ( Amer) ml/min Est GFR (Non-Af Amer) ml/min BUN/Creatinine Ratio (10-20) Glucose (70-99) mg/dl POC Glucose 88 74 (70-99) mg/dl Lactate 1.2 (0.4-2.0) mmol/L Calcium (8.5-10.1) mg/dl Phosphorus (2.5-4.9) mg/dl Magnesium (1.8-2.4) mg/dl Procalcitonin (0-0.5) ng/ml 11/25/20 11/25/20 11/25/20 Range/Units 08:05 07:27 06:59 WBC (4.8-10.8) K/uL RBC (4.2-5.4) M/uL Hgb (12.0-16.0) g/dL Hct (37-47) % MCV (80-100) fL MCH (25-34) pg MCHC (32-36) g/dL RDW Std Deviation (36.4-46.3) fL RDW Coeff of Man (11.5-14.5) % Plt Count (130-400) K/uL MPV (7.4-10.4) fL Sodium (136-145) mmol/L Potassium (3.5-5.1) mmol/L Chloride (98-107) mmol/L Carbon Dioxide (21-32) mmol/L Anion Gap (3-11) BUN (7-18) mg/dl Creatinine (0.6-1.2) mg/dl Est Cr Clr Drug Dosing ml/min Est GFR ( Amer) ml/min Est GFR (Non-Af Amer) ml/min BUN/Creatinine Ratio (10-20) Glucose (70-99) mg/dl POC Glucose 108 H 51 L* (70-99) mg/dl Lactate (0.4-2.0) mmol/L Calcium (8.5-10.1) mg/dl Phosphorus (2.5-4.9) mg/dl Magnesium (1.8-2.4) mg/dl Procalcitonin < 0.05 (0-0.5) ng/ml 11/25/20 Range/Units 05:24 WBC (4.8-10.8) K/uL RBC (4.2-5.4) M/uL Hgb (12.0-16.0) g/dL Hct (37-47) % MCV (80-100) fL MCH (25-34) pg MCHC (32-36) g/dL RDW Std Deviation (36.4-46.3) fL RDW Coeff of Man (11.5-14.5) % Plt Count (130-400) K/uL MPV (7.4-10.4) fL Sodium 143 (136-145) mmol/L Potassium 4.2 (3.5-5.1) mmol/L Chloride 113 H (98-107) mmol/L Carbon Dioxide 25 (21-32) mmol/L Anion Gap 5.0 (3-11) BUN 52 H (7-18) mg/dl Creatinine 1.52 H D (0.6-1.2) mg/dl Est Cr Clr Drug Dosing 37.3 ml/min Est GFR ( Amer) 38.2 ml/min Est GFR (Non-Af Amer) 33.0 ml/min BUN/Creatinine Ratio 34.5 H (10-20) Glucose 38 L* (70-99) mg/dl POC Glucose (70-99) mg/dl Lactate (0.4-2.0) mmol/L Calcium 8.8 (8.5-10.1) mg/dl Phosphorus 5.1 H (2.5-4.9) mg/dl Magnesium 2.2 (1.8-2.4) mg/dl Procalcitonin (0-0.5) ng/ml Medications Administered Current Inpatient Medications Albuterol (Albuterol Hfa 8 Gm Inhaler) 2 puffs INH QIDR PRN PRN Reason: Wheezing Stop: 11/28/20 09:59 Aspirin (Aspirin 81 Mg Ectab) 81 mg PO QAM [facility] Stop: 12/21/20 08:59 Last Admin: 11/25/20 10:43 Dose: 81 mg Documented by: Atorvastatin Calcium (Atorvastatin 40 Mg Tab) 40 mg PO QAM [facility] Stop: 12/21/20 08:59 Last Admin: 11/25/20 10:42 Dose: 40 mg Documented by: Carvedilol (Carvedilol 3.125 Mg Tab) 3.125 mg PO BID [facility] Stop: 12/25/20 20:59 Last Admin: 11/25/20 20:50 Dose: 3.125 mg Documented by: Clopidogrel Bisulfate (Clopidogrel Bisulfate 75 Mg Tab) 75 mg PO QAM [facility] Stop: 12/21/20 08:59 Last Admin: 11/25/20 10:42 Dose: 75 mg Documented by: Dextrose (Dextrose 50% 50 Ml Syringe) 25 - 50 ml IV UD PRN; Protocol PRN Reason: Hypoglycemia Protocol Stop: 12/21/20 04:57 Last Admin: 11/26/20 02:24 Dose: 50 ml Documented by: Doxycycline Hyclate (Doxycycline Hyclate 100 Mg Cap) 100 mg PO BID [facility] Stop: 11/29/20 20:59 Last Admin: 11/24/20 07:15 Dose: 100 mg Documented by: Famotidine (Famotidine 40 Mg Tablet) 40 mg PO DAILY [facility] Stop: 12/21/20 08:59 Last Admin: 11/25/20 10:43 Dose: 40 mg Documented by: Furosemide (Furosemide 40 Mg Tab) 40 mg PO QAM [facility] Stop: 12/22/20 08:59 Last Admin: 11/24/20 07:14 Dose: 40 mg Documented by: Glucagon (Glucagon For Inj 1 Mg Vial) 1 mg SQ UD PRN; Protocol PRN Reason: Hypoglycemia Protocol Stop: 12/21/20 04:57 Glucose (Glucose 10 Tabs/Tube) 4 - 8 tabs PO UD PRN; Protocol PRN Reason: Hypoglycemia Protocol Stop: 12/21/20 04:57 Glucose (Glucose 40% Gel 15 Gm Tube) 15 - 30 gm PO UD PRN; Protocol PRN Reason: Hypoglycemia Protocol Stop: 12/21/20 04:57 Guaifenesin (Guaifenesin 600 Mg Tabcr) 600 mg PO Q12 [facility] Stop: 12/23/20 20:59 Last Admin: 11/25/20 20:50 Dose: 600 mg Documented by: Heparin Sodium (Porcine) (Heparin Sod 5,000 Unit/0.5 Ml Vial) 5,000 units SQ Q8 [facility] Stop: 12/21/20 05:59 Last Admin: 11/24/20 14:45 Dose: 5,000 units Documented by: Dexamethasone 6 mg/ Syringe 1.5 mls @ 1 mls/min IV DAILY KALLIE Stop: 12/22/20 08:59 Last Admin: 11/25/20 09:21 Dose: 1 mls/min Documented by: Pantoprazole Sodium 40 mg/ (Syringe) 10 mls @ 5 mls/min IV DAILY@1100 [facility] Stop: 12/25/20 10:59 Last Admin: 11/25/20 12:08 Dose: 5 mls/min Documented by: Doxycycline Hyclate 100 mg/ (Sodium Chloride) 110 mls @ 50 mls/hr IV Q12H [facility] Stop: 12/01/20 20:59 Last Infusion: 11/25/20 23:56 Dose: Infused Documented by: Insulin Aspart (Insulin Aspart 100 Units/Ml 3 Ml Pen) 0 units SC HS [facility] Stop: 12/23/20 20:59 Last Admin: 11/25/20 20:51 Dose: 1 units Documented by: Insulin Aspart (Insulin Aspart 100 Units/Ml 3 Ml Pen) 0 units SC AC [facility] Stop: 12/23/20 16:29 Last Admin: 11/25/20 17:18 Dose: 7 units Documented by: Insulin Human NPH (Insulin Human Nph) 80 units SC TODAY@0730 [facility] Stop: 12/23/20 07:44 Last Admin: 11/24/20 08:40 Dose: 80 units Documented by: Insulin Human NPH (Insulin Human Nph) 10 units SC TODAY@1730 [facility] Stop: 12/23/20 17:29 Last Admin: 11/24/20 17:27 Dose: 10 units Documented by: Lactobacillus Acidoph/Casei/Rhamnos (Advanced Probiotic 1250 Mg Capsule) 2 cap PO DAILY [facility] Stop: 12/22/20 17:29 Last Admin: 11/24/20 07:15 Dose: 2 cap Documented by: Levothyroxine Sodium (Levothyroxine Sodium 175 Mcg Tablet) 175 mcg PO DAILYBB [facility] Stop: 12/21/20 06:29 Last Admin: 11/26/20 05:43 Dose: 175 mcg Documented by: Loratadine (Loratadine 10 Mg Tab) 10 mg PO QAM [facility] Stop: 12/21/20 08:59 Last Admin: 11/25/20 10:42 Dose: 10 mg Documented by: Miscellaneous (Carbohydrates For Hypoglycemia ) 15 - 30 gm PO UD PRN PRN Reason: Hypoglycemia Protocol Stop: 12/21/20 04:57 Miscellaneous Information (Pharmacy Glycemic Mgmt Consult) 1 ea N/A UD PRN PRN Reason: Consult Stop: 12/22/20 16:58 Morphine Sulfate (Morphine Sulfate 2 Mg/Ml Carp) 2 mg IV Q4H PRN PRN Reason: Pain Stop: 12/08/20 13:10 Polyethylene Glycol (Polyethylene (Miralax) 17 Gm Pack) 17 gm PO DAILY PRN PRN Reason: Constipation Stop: 12/25/20 10:34
[2020-11-26] MEDS: INSULIN ASPART 100 UNITS/ML 3 ML PEN SC SCH ×4 (08:11→21:16)
[2020-11-26] MEDS: guaiFENesin 600 MG TABCR PO SCH ×2 (08:14→21:17)
[2020-11-26] MEDS: LORATADINE 10 MG TAB PO SCH (08:14)
[2020-11-26] MEDS: FAMOTIDINE 40 MG TABLET PO SCH (08:15)
[2020-11-26] MEDS: CLOPIDOGREL BISULFATE 75 MG TAB PO SCH (08:15)
[2020-11-26] MEDS: dexAMETHasone 6 MG in SYRINGE 0 ML IV SCH (08:15)
[2020-11-26] MEDS: ATORVASTATIN 40 MG TAB PO SCH (08:16)
[2020-11-26] MEDS: ASPIRIN 81 MG ECTAB PO SCH (08:16)
[2020-11-26] MEDS: carvediloL 3.125 MG TAB PO SCH ×2 (08:16→21:17)
[2020-11-26] MEDS: DOXYCYCLINE HYCLATE 100 MG in 0.9 % SODIUM CHLORIDE 100 ML IV SCH ×2 (08:18→21:16)
--- NOTE | 2020-11-26 09:36 | Pharmacy Report ---
Pharmacy Glycemic Short Note 2 - Date of Service November 26, 2020 - Glycemic Short BSG Results (Last 24 hours): 11/25/20 11/25/20 11/25/20 12:13 16:38 20:28 Glucose POC Glucose 74 88 143 H 11/26/20 11/26/20 11/26/20 02:21 02:23 02:42 Glucose POC Glucose 32 L* 35 L* 181 H 11/26/20 05:34 Glucose 55 L POC Glucose OUTPATIENT ANTIDIABETIC REGIMEN: * NPH 75 units SC qAM, 45 units SC qPM * Novolog 30 units SC qAM, 10 units SC qPM + sliding scale * HbA1c: 8.5% (11/14/20) ASSESSMENT: 11/26 * Pt with LOW BSG again this morning. NPH was reduced by 55% yesterday but still caused a LOW with decreased PO intake (only ordered clears) * Diet advanced to full liquids today. * Will HOLD NPH this morning and re-evaluate at lunch time. Will resume reduced dosing when BSG >140 mg/dl 11/25 * Pt has received 128 units of insulin over the past 24hrs * 90 units of basal with Lantus * 38 units of bolus with NovoLog * BSGs [phone] mg/dl * Pt with LOW BSG this AM (BSG 51 mg/dl) secondary to too much basal insulin board and NPO status * NPH held this AM for LOW * Will re-start NPH at dinner time at reduced dosing of 40 units * No changes needed to CF/CR 11/24: * BSGs improved over last 24 hrs * Fasting BSG 121-173 this AM (121 on chemistry) with 90 units of NPH given yesterday - will continue the same NPH dose today, but consider increase in PM NPH dose tomorrow if fasting elevated again * Post-prandial BSGs elevated 2 of 3 yesterday. Dexamethasone 6mg IV daily in the AM continues. Will increase Novolog prandial dose (no change to AM NPH at this time) 11/23: * Patient transitioned of insulin infusion early this morning. After reviewing data from past admissions on dexamethasone, I initiated a morning heavy NPH dosing scheme. Novolog was also tightened further. Of note, the patient received a lower dose of novolog than intended this morning per CR NovoLog scale and is likely contributing to the elevated lunchtime BSG. * Patient remains on IV dex and is tolerating a diet. 11/22 * VW is a 75 year old female who was admitted on 11/21/20 with COVID-19 pneumonia * Started on dexamethasone 6 mg IV daily yesterday morning * BSGs trended up yesterday, 82, 205, 286, and 404 mg/dL - likely in light of significant basal insulin deficiency and IV steroids * Initial inpatient basal of Lantus 5 units BID is significantly below outpatient doses * BSGs today of 162, 261, and 460 mg/dL * Pharmacy consulted at dinnertime for BSG of 460 mg/dL * Attempted to utilize IV insulin bolus with tightened Novolog and NPH in lieu of insulin infusion, but BSG still 410 mg/dL at HS * Discussed with hospitalist and will initiate IV insulin infusion PLAN FOR INPATIENT GLYCEMIC CONTROL: * Basal insulin - decrease * NPH HOLD this morning * NPH 30 units SC with dinner if BSG >140; 20 units if BSG 100-140; HOLD if BSG <100 * Correctional Insulin - no change * NOVOLOG per scale ACHS or Q6hrs while NPO * Goal Range: Low 110 mg/dL - High 140 mg/dL * Correction Factor: 10 mg/dL/unit (20 mg/dl/unit at HS) * Nutritional / Prandial insulin per carb ratio of 1 unit per 2.5 grams CHO consumed (no carb coverage at HS) PLAN FOR DISCHARGE: * tbd
[2020-11-26] MEDS: PANTOprazole 40 MG in SYRINGE 0 ML IV SCH (11:56)
[2020-11-26] MEDS: HEPARIN SOD 5,000 UNIT/0.5 ML VIAL SQ SCH ×2 (14:36→21:17)
[2020-11-26] MEDS ORDERED: INSULIN HUMAN NPH SC SCH (16:30)
[2020-11-27] MEDS: HEPARIN SOD 5,000 UNIT/0.5 ML VIAL SQ SCH ×3 (06:16→21:18)
[2020-11-27] MEDS: LEVOTHYROXINE SODIUM 175 MCG TABLET PO SCH (06:16)
--- NOTE | 2020-11-27 07:10 | Hospitalist Progress Note ---
Date of Service November 27, 2020 Assessment & Plan (1) Encephalopathy: Multifactorial : Hypoxemic respiratory failure secondary to persistent COVID-19 pneumonia rule out pulmonary embolism given thrombocytosis Hypoglycemia secondary to poor p.o. intake, deconditioning Improved mentation after initial intervention at the ER. Patient just recently admitted for COVID-19 pneumonia Discharged on November 19, readmitted on November 20 During that admission, patient was started on remdesivir and dexamethasone, remdesivir was then stopped due to renal function Currently on Decadron, nebs CT PE obtained on admission, to rule out PE, negative for PE Procalcitonin negative Initially on 1 L nasal cannula supplemental oxygen, however with ambulation, with PT required 4 L as she would desaturate to 85% (on 11/22) (11/23) she was able to ambulate on 1L O2 (11/24) Pt was on RA AM then 2L (11/25- 11/27) Pt is on RA CT also shows Multifocal airspace consolidation is consistent with the reported history of a viral pneumonia. Radiographic follow-up to resolution is recommended. Continue supplemental O2 as needed, currently on RA Received IV Zosyn in the ED, then antibiotics stopped on admission, started Doxy 100 twice daily Guaifenesin, incentive spirometry, flutter valve DM2 insulin requiring Hypoglycemic on admission, recent hemoglobin A1c was 8.15 Nov 2020 Patient became hyperglycemic, in the setting of Decadron use Glycemic pharmacy consulted, required IV insulin, now off IV insulin Episode of hypoglycemia early AM again - in the setting of liquid diet and steroid Plan to stop steroid and advance diet Monitor BS closely CKD stage III Baseline creatinine 1.5-1.7 Chronic systolic heart failure secondary to ischemic cardiomyopathy (EF 45%, cardiac catheterization 2018) -patient euvolemic to dry on admission -Continue Coreg, restarted home Lasix, cont. to hold home lisinopril for now - decreased Coreg dose d/t lower BP, after experiencing abd. pain d/t hernia, held furosemide, lisinopril Abdominal pain/ periumbilical hernia -(11/24) Presented with severe abdominal pain, in the area of umbilical hernia -Patient never experienced pain in that area before - +Nausea and vomiting Stat KUB, CT, pelvis obtained, patient received IV antiemetics and pain meds, WBC 14 K (in the setting of steroids), lactic acid 1.6 Surgery consulted Patient has chronically incarcerated umbilical hernia, CT images reviewed by surgery, small loop of nonobstructed bowel and mostly fat in her hernia -Patient is status post successful reduction of periumbilical hernia by the surgeon 11/25 -repeat CT with p.o. contrast in the morning without bowel in the hernia -if worsening she may need exploration and hernia repair. Will try to treat her non-operatively as she has multiple co-morbidities and risk factors for complications. 11/25 -Patient is feeling much better. Currently tolerating clear liquid diet without any difficulty. Denies any abdominal pain, nausea or vomiting 11/26 -Patient now on full liquid diet, tolerating without difficulty. No abdominal pain nausea or vomiting. 11/27 -patient is now tolerating low fiber diet, w/o any abdominal pain nausea or vomiting Hx CAD status post stent -continue aspirin Plavix, Coreg and statin PAF, patient NSR hypertension, slight elevated on admission, now BP at goal, facilitate home BP meds hyperlipidemia on statin Rx Chronic anemia, hemoglobin at baseline Hypothyroidism -euthyroid as of TSH from last month -Continue Synthroid History of asthma On albuterol p.r.n. Obesity BMI 44 Counseling on weight loss PT OT eval DVT prophylaxis. Heparin subcu Dispo: Patient has granddaughter working at [facility], considering discharge there, CM aware Admission and Anticipated Discharge Date Admission Date: November 21, 2020 Subjective Patient seen in follow-up of hypoxia, COVID-19 infection hypo/hyperglycemia, periumbilical hernia Today pt on RA 3 days ago developed severe abd. pain, in the region of her umb. hernia, + nausea and vomiting CT abd. pelvis obtained Surgeon was able to reduce the bowel out of her hernia Patient is feeling much better now, repeat CT scan obtained, no bowel in the hernia noted anymore She was started on diet, currently tolerating low fiber diet Denies any abdominal pain, nausea or vomiting Denies any fevers or chills chest pain shortness of breath Says her cough is improving as well Blood glucose difficult to manage -episodes of hypoglycemia and hyperglycemia Plan to discharge to [facility] if accepted Review of Systems Review of Systems: All systems reviewed & are unremarkable except as noted in HPI & below Constitutional: no fever and no chills Respiratory: no cough and no dyspnea Cardiovascular: no chest pain and no palpitations Gastrointestinal: no abdominal pain and no vomiting Physical Exam Physical Exam: GENERAL: Comfortable, morbidly obese, pleasant HEENT: NC/AT, pale palpebral conjunctivae, nasal cannula in place NECK : Supple, short neck, no tenderness CHEST : CTAB no wheezing, no crackles HEART : RRR, no obvious murmurs ABDOMEN: Some distention, obese, soft, nontender EXTREMITIES : B/l LE swelling, no LE tenderness, moves extremities NEUROLOGIC : alert and oriented x3, speech fluent, answers questions appropriately, moves extremities SKIN: Pallor , warm Results & Data Results & Data ([facility]) Vital Signs (Past 12 Hours) Vital Signs Temp Pulse Pulse Resp BP Pulse Ox 11/27/20 03:01 36.6 C 62 18 132/65 91 11/26/20 23:36 66 11/26/20 23:03 36.8 C 69 18 122/61 93 Laboratory Results 11/27/20 11/27/20 11/27/20 Range/Units 11:11 08:10 07:49 WBC (4.8-10.8) K/uL RBC (4.2-5.4) M/uL Hgb (12.0-16.0) g/dL Hct (37-47) % MCV (80-100) fL MCH (25-34) pg MCHC (32-36) g/dL RDW Std Deviation (36.4-46.3) fL RDW Coeff of Man (11.5-14.5) % Plt Count (130-400) K/uL MPV (7.4-10.4) fL Sodium (136-145) mmol/L Potassium (3.5-5.1) mmol/L Chloride (98-107) mmol/L Carbon Dioxide (21-32) mmol/L Anion Gap (3-11) BUN (7-18) mg/dl Creatinine (0.6-1.2) mg/dl Est Cr Clr Drug Dosing ml/min Est GFR ( Amer) ml/min Est GFR (Non-Af Amer) ml/min BUN/Creatinine Ratio (10-20) Glucose (70-99) mg/dl POC Glucose 246 H 70 66 L* (70-99) mg/dl Calcium (8.5-10.1) mg/dl Phosphorus (2.5-4.9) mg/dl Magnesium (1.8-2.4) mg/dl 05/17/21 05/17/21 05/17/21 Range/Units 07:47 07:27 07:26 WBC (4.8-10.8) K/uL RBC (4.2-5.4) M/uL Hgb (12.0-16.0) g/dL Hct (37-47) % MCV (80-100) fL MCH (25-34) pg MCHC (32-36) g/dL RDW Std Deviation (36.4-46.3) fL RDW Coeff of Man (11.5-14.5) % Plt Count (130-400) K/uL MPV (7.4-10.4) fL Sodium (136-145) mmol/L Potassium (3.5-5.1) mmol/L Chloride (98-107) mmol/L Carbon Dioxide (21-32) mmol/L Anion Gap (3-11) BUN (7-18) mg/dl Creatinine (0.6-1.2) mg/dl Est Cr Clr Drug Dosing ml/min Est GFR ( Amer) ml/min Est GFR (Non-Af Amer) ml/min BUN/Creatinine Ratio (10-20) Glucose (70-99) mg/dl POC Glucose 54 L* 53 L* 52 L* (70-99) mg/dl Calcium (8.5-10.1) mg/dl Phosphorus (2.5-4.9) mg/dl Magnesium (1.8-2.4) mg/dl 11/27/20 11/27/20 11/26/20 Range/Units 06:46 06:46 20:23 WBC 17.05 H (4.8-10.8) K/uL RBC 4.22 (4.2-5.4) M/uL Hgb 11.1 L (12.0-16.0) g/dL Hct 35.1 L (37-47) % MCV 83.2 (80-100) fL MCH 26.3 (25-34) pg MCHC 31.6 L (32-36) g/dL RDW Std Deviation 52.6 H (36.4-46.3) fL RDW Coeff of Man 17.3 H (11.5-14.5) % Plt Count 323 (130-400) K/uL MPV 9.3 (7.4-10.4) fL Sodium 143 (136-145) mmol/L Potassium 4.4 (3.5-5.1) mmol/L Chloride 114 H (98-107) mmol/L Carbon Dioxide 25 (21-32) mmol/L Anion Gap 4.0 (3-11) BUN 44 H (7-18) mg/dl Creatinine 1.30 H (0.6-1.2) mg/dl Est Cr Clr Drug Dosing 43.8 ml/min Est GFR ( Amer) 46.2 ml/min Est GFR (Non-Af Amer) 39.8 ml/min BUN/Creatinine Ratio 33.7 H (10-20) Glucose 38 L* (70-99) mg/dl POC Glucose 194 H (70-99) mg/dl Calcium 8.3 L (8.5-10.1) mg/dl Phosphorus 3.7 D (2.5-4.9) mg/dl Magnesium 2.3 (1.8-2.4) mg/dl 11/26/20 Range/Units 16:53 WBC (4.8-10.8) K/uL RBC (4.2-5.4) M/uL Hgb (12.0-16.0) g/dL Hct (37-47) % MCV (80-100) fL MCH (25-34) pg MCHC (32-36) g/dL RDW Std Deviation (36.4-46.3) fL RDW Coeff of Man (11.5-14.5) % Plt Count (130-400) K/uL MPV (7.4-10.4) fL Sodium (136-145) mmol/L Potassium (3.5-5.1) mmol/L Chloride (98-107) mmol/L Carbon Dioxide (21-32) mmol/L Anion Gap (3-11) BUN (7-18) mg/dl Creatinine (0.6-1.2) mg/dl Est Cr Clr Drug Dosing ml/min Est GFR ( Amer) ml/min Est GFR (Non-Af Amer) ml/min BUN/Creatinine Ratio (10-20) Glucose (70-99) mg/dl POC Glucose 94 (70-99) mg/dl Calcium (8.5-10.1) mg/dl Phosphorus (2.5-4.9) mg/dl Magnesium (1.8-2.4) mg/dl Medications Administered Current Inpatient Medications Albuterol (Albuterol Hfa 8 Gm Inhaler) 2 puffs INH QIDR PRN PRN Reason: Wheezing Stop: 11/28/20 09:59 Aspirin (Aspirin 81 Mg Ectab) 81 mg PO QAM [facility] Stop: 12/21/20 08:59 Last Admin: 11/26/20 08:16 Dose: 81 mg Documented by: Atorvastatin Calcium (Atorvastatin 40 Mg Tab) 40 mg PO QAM [facility] Stop: 12/21/20 08:59 Last Admin: 11/26/20 08:16 Dose: 40 mg Documented by: Carvedilol (Carvedilol 3.125 Mg Tab) 3.125 mg PO BID [facility] Stop: 12/25/20 20:59 Last Admin: 11/26/20 21:17 Dose: 3.125 mg Documented by: Clopidogrel Bisulfate (Clopidogrel Bisulfate 75 Mg Tab) 75 mg PO QAM [facility] Stop: 12/21/20 08:59 Last Admin: 11/26/20 08:15 Dose: 75 mg Documented by: Dextrose (Dextrose 50% 50 Ml Syringe) 25 - 50 ml IV UD PRN; Protocol PRN Reason: Hypoglycemia Protocol Stop: 12/21/20 04:57 Last Admin: 11/26/20 02:24 Dose: 50 ml Documented by: Doxycycline Hyclate (Doxycycline Hyclate 100 Mg Cap) 100 mg PO BID [facility] Stop: 11/29/20 20:59 Last Admin: 11/24/20 07:15 Dose: 100 mg Documented by: Famotidine (Famotidine 40 Mg Tablet) 40 mg PO DAILY [facility] Stop: 12/21/20 08:59 Last Admin: 11/26/20 08:15 Dose: 40 mg Documented by: Furosemide (Furosemide 40 Mg Tab) 40 mg PO QAM [facility] Stop: 12/22/20 08:59 Last Admin: 11/24/20 07:14 Dose: 40 mg Documented by: Glucagon (Glucagon For Inj 1 Mg Vial) 1 mg SQ UD PRN; Protocol PRN Reason: Hypoglycemia Protocol Stop: 12/21/20 04:57 Glucose (Glucose 10 Tabs/Tube) 4 - 8 tabs PO UD PRN; Protocol PRN Reason: Hypoglycemia Protocol Stop: 12/21/20 04:57 Glucose (Glucose 40% Gel 15 Gm Tube) 15 - 30 gm PO UD PRN; Protocol PRN Reason: Hypoglycemia Protocol Stop: 12/21/20 04:57 Guaifenesin (Guaifenesin 600 Mg Tabcr) 600 mg PO Q12 [facility] Stop: 12/23/20 20:59 Last Admin: 11/26/20 21:17 Dose: 600 mg Documented by: Heparin Sodium (Porcine) (Heparin Sod 5,000 Unit/0.5 Ml Vial) 5,000 units SQ Q8 [facility] Stop: 12/21/20 05:59 Last Admin: 11/27/20 06:16 Dose: 5,000 units Documented by: Pantoprazole Sodium 40 mg/ (Syringe) 10 mls @ 5 mls/min IV DAILY@1100 [facility] Stop: 12/25/20 10:59 Last Admin: 11/26/20 11:56 Dose: 5 mls/min Documented by: Doxycycline Hyclate 100 mg/ (Sodium Chloride) 110 mls @ 50 mls/hr IV Q12H [facility]ALLIE Stop: 12/01/20 20:59 Last Infusion: 11/26/20 23:36 Dose: Infused Documented by: Insulin Aspart (Insulin Aspart 100 Units/Ml 3 Ml Pen) 0 units SC HS [facility]IE Stop: 12/23/20 20:59 Last Admin: 11/26/20 21:16 Dose: 3 units Documented by: Insulin Aspart (Insulin Aspart 100 Units/Ml 3 Ml Pen) 0 units SC AC [facility]IE Stop: 12/23/20 16:29 Last Admin: 11/26/20 17:08 Dose: 24 units Documented by: Lactobacillus Acidoph/Casei/Rhamnos (Advanced Probiotic 1250 Mg Capsule) 2 cap PO DAILY KALLIE Stop: 12/22/20 17:29 Last Admin: 11/24/20 07:15 Dose: 2 cap Documented by: Levothyroxine Sodium (Levothyroxine Sodium 175 Mcg Tablet) 175 mcg PO DAILYBB [facility]IE Stop: 12/21/20 06:29 Last Admin: 11/27/20 06:16 Dose: 175 mcg Documented by: Loratadine (Loratadine 10 Mg Tab) 10 mg PO QAM [facility] Stop: 12/21/20 08:59 Last Admin: 11/26/20 08:14 Dose: 10 mg Documented by: Miscellaneous (Carbohydrates For Hypoglycemia ) 15 - 30 gm PO UD PRN PRN Reason: Hypoglycemia Protocol Stop: 12/21/20 04:57 Miscellaneous Information (Pharmacy Glycemic Mgmt Consult) 1 ea N/A UD PRN PRN Reason: Consult Stop: 12/22/20 16:58 Morphine Sulfate (Morphine Sulfate 2 Mg/Ml Carp) 2 mg IV Q4H PRN PRN Reason: Pain Stop: 12/08/20 13:10 Polyethylene Glycol (Polyethylene (Miralax) 17 Gm Pack) 17 gm PO DAILY PRN PRN Reason: Constipation Stop: 12/25/20 10:34
[2020-11-27 07:18] LABS: Hematocrit (blood only) 35.1 % (37-47); Hemoglobin 11.1 g/dL (12.0-16.0); Mean Corpuscular Hemoglobin 26.3 pg (25-34); Mean Corpuscular Hgb Conc 31.6 g/dL (32-36); Mean Corpuscular Volume 83.2 fL (80-100); Mean Platelet Volume 9.3 fL (7.4-10.4); Platelet Count 323 K/uL (130-400); RDW Coefficient of Variation 17.3 % (11.5-14.5); RDW Standard Deviation 52.6 fL (36.4-46.3); Red Blood Count 4.22 M/uL (4.2-5.4); White Blood Count 17.05 K/uL (4.8-10.8)
[2020-11-27] MEDS: CARBOHYDRATES FOR HYPOGLYCEMIA PO PRN ×5 (07:31→17:11)
[2020-11-27] MEDS: ASPIRIN 81 MG ECTAB PO SCH (07:56)
[2020-11-27] MEDS: carvediloL 3.125 MG TAB PO SCH ×3 (07:56→20:34)
[2020-11-27] MEDS: ATORVASTATIN 40 MG TAB PO SCH (07:56)
[2020-11-27] MEDS: CLOPIDOGREL BISULFATE 75 MG TAB PO SCH (07:56)
[2020-11-27] MEDS: FAMOTIDINE 40 MG TABLET PO SCH (07:57)
[2020-11-27] MEDS: guaiFENesin 600 MG TABCR PO SCH ×2 (07:57→20:34)
[2020-11-27] MEDS: LORATADINE 10 MG TAB PO SCH (07:57)
[2020-11-27] MEDS: DOXYCYCLINE HYCLATE 100 MG in 0.9 % SODIUM CHLORIDE 100 ML IV SCH ×2 (08:05→20:47)
[2020-11-27 08:08] LABS: BUN Creatinine Ratio 33.7 (10-20); Calcium 8.3 mg/dl (8.5-10.1); Creatinine Clr Calc Pharmacy 43.8 ml/min; Est GFR (African American) 46.2 ml/min; Est GFR (Non-African American) 39.8 ml/min; Magnesium 2.3 mg/dl (1.8-2.4); Phosphorus 3.7 mg/dl (2.5-4.9); Potassium 4.4 mmol/L (3.5-5.1)
[2020-11-27] MEDS: INSULIN ASPART 100 UNITS/ML 3 ML PEN SC SCH ×4 (08:18→21:17)
[2020-11-27] MEDS ORDERED: INSULIN HUMAN NPH SC ONE (11:30)
[2020-11-27] MEDS: PANTOprazole 40 MG in SYRINGE 0 ML IV SCH (11:39)
--- NOTE | 2020-11-27 13:01 | Pharmacy Report ---
Pharmacy Glycemic Short Note 2 - Date of Service November 27, 2020 - Glycemic Short BSG Results (Last 24 hours): 11/26/20 11/26/20 11/27/20 16:53 20:23 06:46 Glucose 38 L* POC Glucose 94 194 H 11/27/20 11/27/20 11/27/20 07:26 07:27 07:47 Glucose POC Glucose 52 L* 53 L* 54 L* 11/27/20 11/27/20 11/27/20 07:49 08:10 11:11 Glucose POC Glucose 66 L* 70 246 H OUTPATIENT ANTIDIABETIC REGIMEN: * NPH 75 units SC qAM, 45 units SC qPM * Novolog 30 units SC qAM, 10 units SC qPM + sliding scale * HbA1c: 8.5% (11/14/20) ASSESSMENT: 11/27 * BSGs labile yesterday, 55, 181, 143, 94, and 194 mg/dL * NPH held yesterday, 69 units of Novolog given * Fasting BSG of 66 mg/dL this morning (38 mg/dL on BMP) * NPH was held this morning and Novolog parameters loosened in light of continued hypoglycemia * Interestingly, BSG pre-lunch is 246 mg/dL despite no ongoing dexamethasone * Will give one-time NPH dose with lunch and leave out with second shift pharmacist to assess at dinnertime * Last dose of IV dexamethasone was yesterday 11/26 * Pt with LOW BSG again this morning. NPH was reduced by 55% yesterday but still caused a LOW with decreased PO intake (only ordered clears) * Diet advanced to full liquids today. * Will HOLD NPH this morning and re-evaluate at lunch time. Will resume reduced dosing when BSG >140 mg/dl 11/25 * Pt has received 128 units of insulin over the past 24hrs * 90 units of basal with Lantus * 38 units of bolus with NovoLog * BSGs 213-474-984-167-51-74 mg/dl * Pt with LOW BSG this AM (BSG 51 mg/dl) secondary to too much basal insulin board and NPO status * NPH held this AM for LOW * Will re-start NPH at dinner time at reduced dosing of 40 units * No changes needed to CF/CR 11/24: * BSGs improved over last 24 hrs * Fasting BSG 121-173 this AM (121 on chemistry) with 90 units of NPH given yesterday - will continue the same NPH dose today, but consider increase in PM NPH dose tomorrow if fasting elevated again * Post-prandial BSGs elevated 2 of 3 yesterday. Dexamethasone 6mg IV daily in the AM continues. Will increase Novolog prandial dose (no change to AM NPH at this time) 11/23: * Patient transitioned of insulin infusion early this morning. After reviewing data from past admissions on dexamethasone, I initiated a morning heavy NPH dosing scheme. Novolog was also tightened further. Of note, the patient received a lower dose of novolog than intended this morning per CR NovoLog scale and is likely contributing to the elevated lunchtime BSG. * Patient remains on IV dex and is tolerating a diet. 11/22 * VW is a 75 year old female who was admitted on 11/21/20 with COVID-19 pneumonia * Started on dexamethasone 6 mg IV daily yesterday morning * BSGs trended up yesterday, 82, 205, 286, and 404 mg/dL - likely in light of significant basal insulin deficiency and IV steroids * Initial inpatient basal of Lantus 5 units BID is significantly below outpatient doses * BSGs today of 162, 261, and 460 mg/dL * Pharmacy consulted at dinnertime for BSG of 460 mg/dL * Attempted to utilize IV insulin bolus with tightened Novolog and NPH in lieu of insulin infusion, but BSG still 410 mg/dL at HS * Discussed with hospitalist and will initiate IV insulin infusion PLAN FOR INPATIENT GLYCEMIC CONTROL: * Basal insulin * NPH HOLD this morning * NPH 30 units SC x 1 with lunch * Correctional Insulin * NOVOLOG per scale ACHS or Q6hrs while NPO * Goal Range: Low 110 mg/dL - High 140 mg/dL * Correction Factor: 12 mg/dL/unit (20 mg/dl/unit at HS) * Nutritional / Prandial insulin per carb ratio of 1 unit per 3 grams CHO c onsumed (no carb coverage at HS) PLAN FOR DISCHARGE: * tbd
[2020-11-27] MEDS: lisinopril 2.5 MG TAB PO SCH (14:55)
[2020-11-28] MEDS: HEPARIN SOD 5,000 UNIT/0.5 ML VIAL SQ SCH ×3 (05:55→23:27)
[2020-11-28] MEDS: LEVOTHYROXINE SODIUM 175 MCG TABLET PO SCH (05:55)
[2020-11-28] MEDS: FAMOTIDINE 40 MG TABLET PO SCH (07:32)
[2020-11-28] MEDS: ATORVASTATIN 40 MG TAB PO SCH (07:32)
[2020-11-28] MEDS: CLOPIDOGREL BISULFATE 75 MG TAB PO SCH (07:32)
[2020-11-28] MEDS: carvediloL 3.125 MG TAB PO SCH ×2 (07:32→20:38)
[2020-11-28] MEDS: ASPIRIN 81 MG ECTAB PO SCH (07:32)
[2020-11-28] MEDS: lisinopril 2.5 MG TAB PO SCH (07:33)
[2020-11-28] MEDS: guaiFENesin 600 MG TABCR PO SCH ×2 (07:33→20:38)
[2020-11-28] MEDS: LORATADINE 10 MG TAB PO SCH (07:33)
--- NOTE | 2020-11-28 07:40 | Hospitalist Progress Note ---
Date of Service November 28, 2020 Assessment & Plan (1) Encephalopathy: Multifactorial : Hypoxemic respiratory failure secondary to persistent COVID-19 pneumonia rule out pulmonary embolism given thrombocytosis Hypoglycemia secondary to poor p.o. intake, deconditioning Improved mentation after initial intervention at the ER. Patient just recently admitted for COVID-19 pneumonia Discharged on November 19, readmitted on November 20 During that admission, patient was started on remdesivir and dexamethasone, remdesivir was then stopped due to renal function On current admission - was on Decadron, nebs (Decadron already stopped) CT PE obtained on admission, to rule out PE, negative for PE Procalcitonin negative Initially on 1 L nasal cannula supplemental oxygen, however with ambulation, with PT required 4 L as she would desaturate to 85% (on 11/22) (11/23) she was able to ambulate on 1L O2 (11/24) Pt was on RA AM then 2L (11/25- 11/28) Pt is on RA CT also shows Multifocal airspace consolidation is consistent with the reported history of a viral pneumonia. Radiographic follow-up to resolution is recommended. Continue supplemental O2 as needed, currently on RA Received IV Zosyn in the ED, then antibiotics stopped on admission, started Doxy 100 twice daily (finished Doxy) Guaifenesin, incentive spirometry, flutter valve Patient finished Decadron, and doxycycline, not on remdesivir (on this admission) COVID isolation precautions are no longer required. Pt is considered COVID recovered. 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 due to lower blood pressures -Monitor blood pressure after DC, and adjust her diuretics Abdominal pain/ periumbilical hernia -(11/24) Presented with severe abdominal pain, in the area of umbilical hernia -Patient never experienced pain in that area before - +Nausea and vomiting Stat KUB, CT, pelvis obtained, patient received IV antiemetics and pain meds, WBC 14 K (in the setting of steroids), lactic acid 1.6 Surgery consulted Patient has chronically incarcerated umbilical hernia, CT images reviewed by surgery, small loop of nonobstructed bowel and mostly fat in her hernia -Patient is status post successful manual reduction of periumbilical hernia by the surgeon 11/25 -repeat CT with p.o. contrast in the morning without bowel in the hernia -if worsening she may need exploration and hernia repair. Will try to treat her non-operatively as she has multiple co-morbidities and risk factors for complications. 11/25 -Patient is feeling much better. Currently tolerating clear liquid diet without any difficulty. Denies any abdominal pain, nausea or vomiting 11/26 -Patient now on full liquid diet, tolerating without difficulty. No abdominal pain nausea or vomiting. 11/27-11/28 -patient is now tolerating low fiber diet, w/o any abdominal pain nausea or vomiting Hx CAD status post stent -continue aspirin Plavix, Coreg and statin PAF, patient NSR Hypertension, slight elevated on admission, now BP at goal/ occasionally low, facilitate home BP meds hyperlipidemia on statin Rx Chronic anemia, hemoglobin at baseline Hypothyroidism -euthyroid as of TSH from last month -Continue Synthroid History of asthma On albuterol p.r.n. Obesity BMI 44 Counseling on weight loss PT OT eval DVT prophylaxis. Heparin subcu Dispo: Patient has granddaughter working [facility] [employer], considering discharge there, CM aware. Plan to DC to [facility] tomorrow. Admission and Anticipated Discharge Date Admission Date: November 21, 2020 Subjective Patient seen in follow-up of hypoxia, COVID-19 infection hypo/hyperglycemia, periumbilical hernia Today pt on RA, satting 95% Several days ago developed severe abd. pain, in the region of her umb. hernia, + nausea and vomiting CT abd. pelvis obtained Surgeon was able to manually reduce the bowel out of her hernia Patient is feeling much better now, repeat CT scan obtained, no bowel in the hernia noted anymore She was started on diet and tolerating well Denies any abdominal pain, nausea or vomiting Denies any fevers or chills chest pain shortness of breath Says her cough has much improved as well Blood glucose difficult to manage -episodes of hypoglycemia and hyperglycemia - pt will need close follow up w/ her well drill operator rotary drill Plan to discharge to [facility] tomorrow COVID isolation precautions are no longer required. Pt is considered COVID recovered. Review of Systems Review of Systems: All systems reviewed & are unremarkable except as noted in HPI & below Constitutional: no fever and no chills Respiratory: no cough and no dyspnea Cardiovascular: no chest pain and no palpitations Gastrointestinal: no abdominal pain, no nausea and no vomiting Physical Exam Physical Exam: GENERAL: Comfortable, morbidly obese, pleasant, on RA HEENT: NC/AT, pale palpebral conjunctivae NECK : Supple, short neck, no tenderness CHEST : CTAB no wheezing, no crackles, +mild rhonchi, breathing comfortably on RA HEART : RRR, no obvious murmurs ABDOMEN: Some distention, obese, soft, nontender EXTREMITIES : mild B/l LE swelling, no LE tenderness, moves extremities NEUROLOGIC : alert and oriented x3, speech fluent, answers questions appropriately, moves extremities SKIN: Pallor , warm Results & Data Results & Data ([facility]) Vital Signs (Past 12 Hours) Vital Signs Temp Pulse Pulse Resp BP Pulse Ox 11/28/20 07:07 72 11/28/20 06:36 36.6 C 69 18 110/62 92 11/28/20 03:30 36.9 C 69 18 116/63 93 11/28/20 00:38 77 11/27/20 23:16 37 C 77 18 114/65 93 Laboratory Results 11/28/20 11/28/20 11/28/20 Range/Units 11:36 11:28 11:28 WBC (4.8-10.8) K/uL RBC (4.2-5.4) M/uL Hgb (12.0-16.0) g/dL Hct (37-47) % MCV (80-100) fL MCH (25-34) pg MCHC (32-36) g/dL RDW Std Deviation (36.4-46.3) fL RDW Coeff of Man (11.5-14.5) % Plt Count (130-400) K/uL MPV (7.4-10.4) fL Sodium (136-145) mmol/L Potassium (3.5-5.1) mmol/L Chloride (98-107) mmol/L Carbon Dioxide (21-32) mmol/L Anion Gap (3-11) BUN (7-18) mg/dl Creatinine (0.6-1.2) mg/dl Est Cr Clr Drug Dosing ml/min Est GFR ( Amer) ml/min Est GFR (Non-Af Amer) ml/min BUN/Creatinine Ratio (10-20) Glucose (70-99) mg/dl POC Glucose 103 H (70-99) mg/dl Calcium (8.5-10.1) mg/dl COVID-19 Eval [facility] SARS-CoV-2, RNA, NAAT NEGATIVE (NEGATIVE) 11/28/20 11/28/20 11/28/20 Range/Units 07:36 07:36 07:30 WBC 15.69 H (4.8-10.8) K/uL RBC 4.07 L (4.2-5.4) M/uL Hgb 10.7 L (12.0-16.0) g/dL Hct 33.9 L (37-47) % MCV 83.3 (80-100) fL MCH 26.3 (25-34) pg MCHC 31.6 L (32-36) g/dL RDW Std Deviation 53.4 H (36.4-46.3) fL RDW Coeff of Man 17.6 H (11.5-14.5) % Plt Count 259 (130-400) K/uL MPV 9.3 (7.4-10.4) fL Sodium 143 (136-145) mmol/L Potassium 4.7 (3.5-5.1) mmol/L Chloride 116 H (98-107) mmol/L Carbon Dioxide 21 (21-32) mmol/L Anion Gap 6.0 (3-11) BUN 45 H (7-18) mg/dl Creatinine 1.57 H (0.6-1.2) mg/dl Est Cr Clr Drug Dosing 36.5 ml/min Est GFR ( Amer) 36.7 ml/min Est GFR (Non-Af Amer) 31.7 ml/min BUN/Creatinine Ratio 28.7 H (10-20) Glucose 81 (70-99) mg/dl POC Glucose 90 (70-99) mg/dl Calcium 8.4 L (8.5-10.1) mg/dl COVID-19 Eval Order SARS-CoV-2, RNA, NAAT (NEGATIVE) 11/27/20 11/27/20 11/27/20 Range/Units 20:26 17:26 17:08 WBC (4.8-10.8) K/uL RBC (4.2-5.4) M/uL Hgb (12.0-16.0) g/dL Hct (37-47) % MCV (80-100) fL MCH (25-34) pg MCHC (32-36) g/dL RDW Std Deviation (36.4-46.3) fL RDW Coeff of Man (11.5-14.5) % Plt Count (130-400) K/uL MPV (7.4-10.4) fL Sodium (136-145) mmol/L Potassium (3.5-5.1) mmol/L Chloride (98-107) mmol/L Carbon Dioxide (21-32) mmol/L Anion Gap (3-11) BUN (7-18) mg/dl Creatinine (0.6-1.2) mg/dl Est Cr Clr Drug Dosing ml/min Est GFR ( Amer) ml/min Est GFR (Non-Af Amer) ml/min BUN/Creatinine Ratio (10-20) Glucose (70-99) mg/dl POC Glucose 147 H 89 60 L* (70-99) mg/dl Calcium (8.5-10.1) mg/dl COVID-19 Eval Order SARS-CoV-2, RNA, NAAT (NEGATIVE) 11/27/20 11/27/20 11/27/20 Range/Units 16:53 16:51 16:32 WBC (4.8-10.8) K/uL RBC (4.2-5.4) M/uL Hgb (12.0-16.0) g/dL Hct (37-47) % MCV (80-100) fL MCH (25-34) pg MCHC (32-36) g/dL RDW Std Deviation (36.4-46.3) fL RDW Coeff of Man (11.5-14.5) % Plt Count (130-400) K/uL MPV (7.4-10.4) fL Sodium (136-145) mmol/L Potassium (3.5-5.1) mmol/L Chloride (98-107) mmol/L Carbon Dioxide (21-32) mmol/L Anion Gap (3-11) BUN (7-18) mg/dl Creatinine (0.6-1.2) mg/dl Est Cr Clr Drug Dosing ml/min Est GFR ( Amer) ml/min Est GFR (Non-Af Amer) ml/min BUN/Creatinine Ratio (10-20) Glucose (70-99) mg/dl POC Glucose 58 L* 56 L* 48 L* (70-99) mg/dl Calcium (8.5-10.1) mg/dl COVID-19 Eval Order SARS-CoV-2, RNA, NAAT (NEGATIVE) 11/27/20 Range/Units 16:30 WBC (4.8-10.8) K/uL RBC (4.2-5.4) M/uL Hgb (12.0-16.0) g/dL Hct (37-47) % MCV (80-100) fL MCH (25-34) pg MCHC (32-36) g/dL RDW Std Deviation (36.4-46.3) fL RDW Coeff of Man (11.5-14.5) % Plt Count (130-400) K/uL MPV (7.4-10.4) fL Sodium (136-145) mmol/L Potassium (3.5-5.1) mmol/L Chloride (98-107) mmol/L Carbon Dioxide (21-32) mmol/L Anion Gap (3-11) BUN (7-18) mg/dl Creatinine (0.6-1.2) mg/dl Est Cr Clr Drug Dosing ml/min Est GFR ( Amer) ml/min Est GFR (Non-Af Amer) ml/min BUN/Creatinine Ratio (10-20) Glucose (70-99) mg/dl POC Glucose 49 L* (70-99) mg/dl Calcium (8.5-10.1) mg/dl COVID-19 Eval Order SARS-CoV-2, RNA, NAAT (NEGATIVE) Medications Administered Current Inpatient Medications Albuterol (Albuterol Hfa 8 Gm Inhaler) 2 puffs INH QIDR PRN PRN Reason: Wheezing Stop: 11/28/20 09:59 Aspirin (Aspirin 81 Mg Ectab) 81 mg PO QAM [facility] Stop: 12/21/20 08:59 Last Admin: 11/28/20 07:32 Dose: 81 mg Documented by: Atorvastatin Calcium (Atorvastatin 40 Mg Tab) 40 mg PO QAM [facility] Stop: 12/21/20 08:59 Last Admin: 11/28/20 07:32 Dose: 40 mg Documented by: Carvedilol (Carvedilol 3.125 Mg Tab) 3.125 mg PO BID [facility] Stop: 12/25/20 20:59 Last Admin: 11/28/20 07:32 Dose: 3.125 mg Documented by: Clopidogrel Bisulfate (Clopidogrel Bisulfate 75 Mg Tab) 75 mg PO QAM [facility] Stop: 12/21/20 08:59 Last Admin: 11/28/20 07:32 Dose: 75 mg Documented by: Dextrose (Dextrose 50% 50 Ml Syringe) 25 - 50 ml IV UD PRN; Protocol PRN Reason: Hypoglycemia Protocol Stop: 12/21/20 04:57 Last Admin: 11/26/20 02:24 Dose: 50 ml Documented by: Doxycycline Hyclate (Doxycycline Hyclate 100 Mg Cap) 100 mg PO BID [facility] Stop: 11/29/20 20:59 Last Admin: 11/24/20 07:15 Dose: 100 mg Documented by: Famotidine (Famotidine 40 Mg Tablet) 40 mg PO DAILY [facility] Stop: 12/21/20 08:59 Last Admin: 11/28/20 07:32 Dose: 40 mg Documented by: Furosemide (Furosemide 40 Mg Tab) 40 mg PO QAM [facility] Stop: 12/22/20 08:59 Last Admin: 11/24/20 07:14 Dose: 40 mg Documented by: Glucagon (Glucagon For Inj 1 Mg Vial) 1 mg SQ UD PRN; Protocol PRN Reason: Hypoglycemia Protocol Stop: 12/21/20 04:57 Glucose (Glucose 10 Tabs/Tube) 4 - 8 tabs PO UD PRN; Protocol PRN Reason: Hypoglycemia Protocol Stop: 12/21/20 04:57 Glucose (Glucose 40% Gel 15 Gm Tube) 15 - 30 gm PO UD PRN; Protocol PRN Reason: Hypoglycemia Protocol Stop: 12/21/20 04:57 Guaifenesin (Guaifenesin 600 Mg Tabcr) 600 mg PO Q12 [facility] Stop: 12/23/20 20:59 Last Admin: 11/28/20 07:33 Dose: 600 mg Documented by: Heparin Sodium (Porcine) (Heparin Sod 5,000 Unit/0.5 Ml Vial) 5,000 units SQ Q8 [facility] Stop: 12/21/20 05:59 Last Admin: 11/28/20 05:55 Dose: 5,000 units Documented by: Pantoprazole Sodium 40 mg/ (Syringe) 10 mls @ 5 mls/min IV DAILY@1100 [facility] Stop: 12/25/20 10:59 Last Admin: 11/27/20 11:39 Dose: 5 mls/min Documented by: Doxycycline Hyclate 100 mg/ (Sodium Chloride) 110 mls @ 50 mls/hr IV Q12H [facility] Stop: 12/01/20 20:59 Last Infusion: 11/27/20 22:59 Dose: Infused Documented by: Insulin Aspart (Insulin Aspart 100 Units/Ml 3 Ml Pen) 0 units SC HS [facility] Stop: 12/23/20 20:59 Last Admin: 11/27/20 21:17 Dose: 1 units Documented by: Insulin Aspart (Insulin Aspart 100 Units/Ml 3 Ml Pen) 0 units SC AC [facility] Stop: 12/23/20 16:29 Last Admin: 11/27/20 17:31 Dose: 7 units Documented by: Lactobacillus Acidoph/Casei/Rhamnos (Advanced Probiotic 1250 Mg Capsule) 2 cap PO DAILY [facility] Stop: 12/22/20 17:29 Last Admin: 11/24/20 07:15 Dose: 2 cap Documented by: Levothyroxine Sodium (Levothyroxine Sodium 175 Mcg Tablet) 175 mcg PO DAILYBB [facility] Stop: 12/21/20 06:29 Last Admin: 11/28/20 05:55 Dose: 175 mcg Documented by: Lisinopril (Lisinopril 2.5 Mg Tab) 2.5 mg PO QAM [facility] Stop: 12/27/20 13:59 Last Admin: 11/28/20 07:33 Dose: 2.5 mg Documented by: Loratadine (Loratadine 10 Mg Tab) 10 mg PO QAM [facility] Stop: 12/21/20 08:59 Last Admin: 11/28/20 07:33 Dose: 10 mg Documented by: Miscellaneous (Carbohydrates For Hypoglycemia ) 15 - 30 gm PO UD PRN PRN Reason: Hypoglycemia Protocol Stop: 12/21/20 04:57 Last Admin: 11/27/20 17:11 Dose: 15 gm Documented by: Miscellaneous Information (Pharmacy Glycemic Mgmt Consult) 1 ea N/A UD PRN PRN Reason: Consult Stop: 12/22/20 16:58 Morphine Sulfate (Morphine Sulfate 2 Mg/Ml Carp) 2 mg IV Q4H PRN PRN Reason: Pain Stop: 12/08/20 13:10 Polyethylene Glycol (Polyethylene (Miralax) 17 Gm Pack) 17 gm PO DAILY PRN PRN Reason: Constipation Stop: 12/25/20 10:34
[2020-11-28] MEDS ORDERED: INSULIN ASPART 100 UNITS/ML 3 ML PEN SC SCH (07:55)
[2020-11-28 07:57] LABS: Hematocrit (blood only) 33.9 % (37-47); Hemoglobin 10.7 g/dL (12.0-16.0); Mean Corpuscular Hemoglobin 26.3 pg (25-34); Mean Corpuscular Hgb Conc 31.6 g/dL (32-36); Mean Corpuscular Volume 83.3 fL (80-100); Mean Platelet Volume 9.3 fL (7.4-10.4); Platelet Count 259 K/uL (130-400); RDW Coefficient of Variation 17.6 % (11.5-14.5); RDW Standard Deviation 53.4 fL (36.4-46.3); Red Blood Count 4.07 M/uL (4.2-5.4); White Blood Count 15.69 K/uL (4.8-10.8)
[2020-11-28] MEDS ORDERED: INSULIN HUMAN NPH SC ONE ×2 (08:00→08:45)
[2020-11-28] MEDS: INSULIN ASPART 100 UNITS/ML 3 ML PEN SC SCH ×5 (08:05→20:37)
[2020-11-28] MEDS: DOXYCYCLINE HYCLATE 100 MG in 0.9 % SODIUM CHLORIDE 100 ML IV SCH (08:07)
[2020-11-28 08:28] LABS: BUN Creatinine Ratio 28.7 (10-20); Calcium 8.4 mg/dl (8.5-10.1); Creatinine Clr Calc Pharmacy 36.5 ml/min; Est GFR (African American) 36.7 ml/min; Est GFR (Non-African American) 31.7 ml/min; Potassium 4.7 mmol/L (3.5-5.1)
--- NOTE | 2020-11-28 08:41 | Pharmacy Report ---
Pharmacy Glycemic Short Note 2 - Date of Service November 28, 2020 - Glycemic Short BSG Results (Last 24 hours): 11/27/20 11/27/20 11/27/20 11:11 16:30 16:32 Glucose POC Glucose 246 H 49 L* 48 L* 11/27/20 11/27/20 11/27/20 16:51 16:53 17:08 Glucose POC Glucose 56 L* 58 L* 60 L* 11/27/20 11/27/20 11/28/20 17:26 20:26 07:30 Glucose POC Glucose 89 147 H 90 11/28/20 07:36 Glucose 81 POC Glucose OUTPATIENT ANTIDIABETIC REGIMEN: * NPH 75 units SC qAM, 45 units SC qPM * Novolog 30 units SC qAM, 10 units SC qPM + sliding scale * HbA1c: 8.5% (11/14/20) ASSESSMENT: 11/28 * BSGs continue to be labile and unpredictable, 66, 246, 49, and 147 mg/dL yesterday * Received 75 units of insulin (30 units of NPH and 45 units of prandial/correctional Novolog) * Fasting BSG of 90 mg/dL this morning * Will give small NPH dose ~0.1 unit/kg to help combat pattern of elevated lunch BSGs * Novolog loosened last evening, will continue 11/27 * BSGs labile yesterday, 55, 181, 143, 94, and 194 mg/dL * NPH held yesterday, 69 units of Novolog given * Fasting BSG of 66 mg/dL this morning (38 mg/dL on BMP) * NPH was held this morning and Novolog parameters loosened in light of continued hypoglycemia * Interestingly, BSG pre-lunch is 246 mg/dL despite no ongoing dexamethasone * Will give one-time NPH dose with lunch and leave out with second shift pharmacist to assess at dinnertime * Last dose of IV dexamethasone was yesterday 11/26 * Pt with LOW BSG again this morning. NPH was reduced by 55% yesterday but still caused a LOW with decreased PO intake (only ordered clears) * Diet advanced to full liquids today. * Will HOLD NPH this morning and re-evaluate at lunch time. Will resume reduced dosing when BSG >140 mg/dl 11/22 * VW is a 75 year old female who was admitted on 11/21/20 with COVID-19 pneumonia * Started on dexamethasone 6 mg IV daily yesterday morning * BSGs trended up yesterday, 82, 205, 286, and 404 mg/dL - likely in light of significant basal insulin deficiency and IV steroids * Initial inpatient basal of Lantus 5 units BID is significantly below outpatient doses * BSGs today of 162, 261, and 460 mg/dL * Pharmacy consulted at dinnertime for BSG of 460 mg/dL * Attempted to utilize IV insulin bolus with tightened Novolog and NPH in lieu of insulin infusion, but BSG still 410 mg/dL at HS * Discussed with hospitalist and will initiate IV insulin infusion PLAN FOR INPATIENT GLYCEMIC CONTROL: * Basal insulin * NPH 15 units SC x 1 this morning * will hold off on evening NPH today * Correctional Insulin * NOVOLOG per scale ACHS or Q6hrs while NPO * Goal Range: Low 110 mg/dL - High 140 mg/dL * Correction Factor: 15 mg/dL/unit (20 mg/dl/unit at HS) * Nutritional / Prandial insulin per carb ratio of 1 unit per 4 grams CHO consumed (no carb coverage at HS) PLAN FOR DISCHARGE: * HbA1c of 8.5% is above goal * Reasonable goal for this patient based on age and comorbidities could be HbA1c less than 8% * Current inpatient insulin doses are much reduced compared to outpatient ones * Insulin doses may need to be adjusted if appetite does not return to baseline at time of discharge * Patient follows with endocrinology - would ensure prompt outpatient follow-up upon discharge
[2020-11-28] MEDS: PANTOprazole 40 MG in SYRINGE 0 ML IV SCH (11:30)
[2020-11-28] MEDS ORDERED: FUROSEMIDE 40 MG TAB PO ONE (15:10)
[2020-11-29] MEDS: HEPARIN SOD 5,000 UNIT/0.5 ML VIAL SQ SCH (06:23)
[2020-11-29] MEDS: LEVOTHYROXINE SODIUM 175 MCG TABLET PO SCH (06:23)
[2020-11-29 06:25] LABS: Hematocrit (blood only) 33.6 % (37-47); Hemoglobin 10.8 g/dL (12.0-16.0); Mean Corpuscular Hemoglobin 26.2 pg (25-34); Mean Corpuscular Hgb Conc 32.1 g/dL (32-36); Mean Corpuscular Volume 81.6 fL (80-100); Mean Platelet Volume 9.6 fL (7.4-10.4); Platelet Count 244 K/uL (130-400); RDW Coefficient of Variation 17.7 % (11.5-14.5); RDW Standard Deviation 52.6 fL (36.4-46.3); Red Blood Count 4.12 M/uL (4.2-5.4); White Blood Count 16.32 K/uL (4.8-10.8)
[2020-11-29 06:59] LABS: BUN Creatinine Ratio 28.9 (10-20); Calcium 8.2 mg/dl (8.5-10.1); Creatinine Clr Calc Pharmacy 30.9 ml/min; Est GFR (African American) 30.1 ml/min; Potassium 4.7 mmol/L (3.5-5.1)
[2020-11-29] MEDS ORDERED: INSULIN HUMAN NPH SC SCH ×2 (07:30→17:00)
[2020-11-29] MEDS: INSULIN ASPART 100 UNITS/ML 3 ML PEN SC SCH ×2 (08:37→11:57)
[2020-11-29] MEDS: lisinopril 2.5 MG TAB PO SCH (08:38)
[2020-11-29] MEDS: ASPIRIN 81 MG ECTAB PO SCH (08:38)
[2020-11-29] MEDS: CLOPIDOGREL BISULFATE 75 MG TAB PO SCH (08:38)
[2020-11-29] MEDS: carvediloL 3.125 MG TAB PO SCH (08:38)
[2020-11-29] MEDS: LORATADINE 10 MG TAB PO SCH (08:38)
[2020-11-29] MEDS: FAMOTIDINE 40 MG TABLET PO SCH (08:38)
[2020-11-29] MEDS: guaiFENesin 600 MG TABCR PO SCH (08:38)
[2020-11-29] MEDS: ATORVASTATIN 40 MG TAB PO SCH (08:38)
[2020-11-29] MEDS ORDERED: FUROSEMIDE 20 MG TAB PO SCH (09:00)
--- NOTE | 2020-11-29 09:23 | Pharmacy Report ---
Pharmacy Glycemic Short Note 2 - Date of Service November 29, 2020 - Glycemic Short BSG Results (Last 24 hours): 11/28/20 11/28/20 11/28/20 11:36 16:20 20:06 Glucose POC Glucose 103 H 130 H 200 H 11/29/20 11/29/20 06:04 07:43 Glucose 229 H POC Glucose 240 H OUTPATIENT ANTIDIABETIC REGIMEN: * NPH 75 units SC qAM, 45 units SC qPM * Novolog 30 units SC qAM, 10 units SC qPM + sliding scale * HbA1c: 8.5% (11/14/20) ASSESSMENT: 11/29 * BSGs yesterday of 90, 103, 130, and 200 mg/dL * Elevated HS BSG likely due to no NPH given with dinner * Fasting BSG of 240 mg/dL * Will plan to return to BIDM NPH * Will tighten Novolog parameters with breakfast and plan to return to yesterday's parameters starting with lunch 11/28 * BSGs continue to be labile and unpredictable, 66, 246, 49, and 147 mg/dL yeste rday * Received 75 units of insulin (30 units of NPH and 45 units of prandial/correctional Novolog) * Fasting BSG of 90 mg/dL this morning * Will give small NPH dose ~0.1 unit/kg to help combat pattern of elevated lunch BSGs * Novolog loosened last evening, will continue 11/22 * VW is a 75 year old female who was admitted on 11/21/20 with COVID-19 pneumonia * Started on dexamethasone 6 mg IV daily yesterday morning * BSGs trended up yesterday, 82, 205, 286, and 404 mg/dL - likely in light of significant basal insulin deficiency and IV steroids * Initial inpatient basal of Lantus 5 units BID is significantly below outpatient doses * BSGs today of 162, 261, and 460 mg/dL * Pharmacy consulted at dinnertime for BSG of 460 mg/dL * Attempted to utilize IV insulin bolus with tightened Novolog and NPH in lieu of insulin infusion, but BSG still 410 mg/dL at HS * Discussed with hospitalist and will initiate IV insulin infusion PLAN FOR INPATIENT GLYCEMIC CONTROL: * Basal insulin * NPH 15 units SC x BIDM * Correctional Insulin * NOVOLOG per scale ACHS or Q6hrs while NPO * Goal Range: Low 110 mg/dL - High 140 mg/dL * Correction Factor: 15 mg/dL/unit (20 mg/dl/unit at HS) * Nutritional / Prandial insulin per carb ratio of 1 unit per 4 grams CHO consumed (no carb coverage at HS) PLAN FOR DISCHARGE: * HbA1c of 8.5% is above goal * Reasonable goal for this patient based on age and comorbidities could be HbA1c less than 8% * Current inpatient insulin doses are much reduced compared to outpatient ones (possible outpatient/inpatient dietary difference?) * BSGs have been incredibly labile while inpatient, but given multiple episodes of hypoglycemia would suggest decreasing insulin doses at discharge * In the interest of safety, suggest decreasing to NPH 35 units SC qAM and 20 units SC qPM, Novolog 20 units SC w/ breakfast and 5 units SC w/dinner and continue previous outpatient sliding scale * These doses will likely require adjustment depending on appetite/diet * Patient follows with endocrinology - would ensure prompt outpatient follow-up upon discharge, as these are significant dose adjustments to her regimen
[2020-11-29] MEDS ORDERED: MICONAZOLE NITRATE POWDER 43 GM EXT PRN (09:29)
[2020-11-29] MEDS: PANTOprazole 40 MG in SYRINGE 0 ML IV SCH (10:43)
--- NOTE | 2020-11-29 12:55 | Discharge Summary ---
Date of Service November 29, 2020 Admission HPI Per Admitting Provider History obtained from patient, family, and records. Medical history significant for chronic systolic heart failure secondary to ischemic cardiomyopathy (EF 45%, cardiac catheterization 2018), CAD status post stent, PAF, hypertension, hyperlipidemia, DM2 insulin requiring, CRI (baseline creatinine 1.5), chronic anemia (baseline hemoglobin 10), hypothyroidism, recent COVID-19 pneumonia. Last confinement November 14-2020 for hypoxemic respiratory failure secondary to severe COVID-19 pneumonia. Patient received Decadron during confinement. Remdesivir stopped due to kidney dysfunction. Transient l A. fib noted during confinement. Patient subsequently discharged home. At home, patient noted sudden onset shortness of breath on exertion. Same cough symptoms productive of clear sputum. Patient denies chest pain or unusual leg swelling. Patient denies fluid retention. Poor appetite at home. Some confusion noted. Patient noted to be hypoglycemic. Dextrose given at the ER. Decadron and Zosyn given at the ER for persistent Covid 19 pneumonia. Medical History as above Surgical History : D&C, hysteroscopy with biopsy and polypectomy, cholecystectomy, BTL, thyroidectomy Family History : Heart disease, breast cancer Personal/Social history : Past tobacco abuse, no EtOH intake, retired caregiver Admission Exam Per Admitting Provider Physical Exam: GENERAL: Comfortable, morbidly obese, pleasant, minimal respiratory distress SKIN: Pallor , warm HEENT: Pale palpebral conjunctivae, no ptosis, dry buccal mucosa, nasal cannula in place NECK : Supple, short neck, no tenderness CHEST : Decreased breath sounds, occasional expiratory wheezes, no tenderness HEART : RRR, no obvious murmurs ABDOMEN: Some distention, nontender EXTREMITIES : Bilateral LE swelling, no LE tenderness, no other conspicuous deformities noted NEUROLOGIC : Coherent, no facial asymmetry, no other gross focality Principal Diagnosis Acute metabolic encephalopathy-resolved Covid pneumonia Type 2 diabetes myelitis Chronic systolic heart failure Abdominal pain-periumbilical hernia status post manual reduction on 11/24 Obesity Discharge Exam CONSTITUTIONAL: WNWD, vitals as above, generally well-appearing EYES: normal conjunctivae, no scleral icterus ENT: external ear and nose normal, MMM RESPIRATORY: clear to auscultation bilaterally, no crackles, rales or wheezes, normal respiratory effort CARDIOVASCULAR: regular rate and rhythm, S1 and 2 heard without murmurs, gallops or rubs, no JVD, no peripheral edema GASTROINTESTINAL: normal bowel sounds, soft, nontender, no guarding, periumbilical hernia present but nontender and appears reduced. Patient is sitting up and laying down without issues. MUSCULOSKELETAL: strength 5/5 throughout, head is normocephalic and atraumatic, neck supple SKIN: warm and dry NEUROLOGIC: CN 2-12 grossly intact, no sensory deficit, normal cognition, normal speech, no gross focal deficits. PSYCHIATRIC: alert cooperative and oriented to person, place and time. Discharge Data Allergies Allergy/AdvReac Type Severity Reaction Status Date / Time adhesive Allergy Mild Band Aid - Verified 11/21/20 00:35 Rash Sulfa (Sulfonamide Allergy Mild nausea/vomi Verified 11/21/20 00:35 Antibiotics) ting Consultations 11/21/20 00:23 ED Decision to Admit Stat 11/24/20 11:31 Consult General Surgery Routine Ordered Studies Laboratory Results WBC 16.32 K/uL (4.8-10.8) H 11/29/20 06:04 RBC 4.12 M/uL (4.2-5.4) L 11/29/20 06:04 Hgb 10.8 g/dL (12.0-16.0) L 11/29/20 06:04 Hct 33.6 % (37-47) L 11/29/20 06:04 MCV 81.6 fL (80-100) 11/29/20 06:04 MCH 26.2 pg (25-34) 11/29/20 06:04 MCHC 32.1 g/dL (32-36) 11/29/20 06:04 RDW Std Deviation 52.6 fL (36.4-46.3) H 11/29/20 06:04 RDW Coeff of Man 17.7 % (11.5-14.5) H 11/29/20 06:04 Plt Count 244 K/uL (130-400) 11/29/20 06:04 MPV 9.6 fL (7.4-10.4) 11/29/20 06:04 Immature Gran % (Auto) 6.9 % 11/22/20 06:29 Neut % (Auto) 64.8 % 11/22/20 06:29 Lymph % (Auto) 15.0 % 11/22/20 06:29 [place] % (Auto) 10.5 % 11/22/20 06:29 Eos % (Auto) 2.4 % 11/22/20 06:29 Baso % (Auto) 0.4 % 11/22/20 06:29 Neut # (Auto) 7.28 K/uL (1.4-6.5) H 11/22/20 06:29 Lymph # (Auto) 1.69 K/uL (1.2-3.4) 11/22/20 06:29 [place] # (Auto) 1.18 K/uL (0.11-0.59) H 11/22/20 06:29 Eos # (Auto) 0.27 K/uL (0-0.5) 11/22/20 06:29 Baso # (Auto) 0.04 K/uL (0-0.2) 11/22/20 06: Immature Gran # (Auto) 0.77 K/uL (0.00-0.02) H 11/22/20 06:29 Absolute Nucleated RBC 0.03 K/uL (0-0) H 11/21/20 00:00 Nucleated RBC % (auto) 0.1 % 11/21/20 00:00 Echinocytes 1+ 11/22/20 06:29 PT 10.4 Seconds (9.0-12.0) 11/21/20 00:00 INR 1.0 (0.9-1.1) 11/21/20 00:00 APTT 21.5 Seconds (21.0-31.0) 11/21/20 00:00 PTT Ratio 0.8 11/21/20 00:00 VBG pH 7.38 (7.36-7.41) 11/21/20 01:16 VBG pCO2 40 mmHg (38-50) 11/21/20 01:16 VBG pO2 29 mmHg 11/21/20 01:16 VBG HCO3 23 mmol/L 11/21/20 01:16 VBG O2 Saturation < 60.0 % 11/21/20 01:16 VBG Base Excess -1.7 mEq/L 11/21/20 01:16 Sodium 140 mmol/L (136-145) 11/29/20 06:04 Potassium 4.7 mmol/L (3.5-5.1) 11/29/20 06:04 Chloride 113 mmol/L (98-107) H 11/29/20 06:04 Carbon Dioxide 20 mmol/L (21-32) L 11/29/20 06:04 Anion Gap 7.0 (3-11) 11/29/20 06:04 BUN 54 mg/dl (7-18) H 11/29/20 06:04 Creatinine 1.85 mg/dl (0.6-1.2) H 11/29/20 06:04 Est Cr Clr Drug Dosing 30.9 ml/min 11/29/20 06:04 Est GFR ( Amer) 30.1 ml/min 11/29/20 06:04 Est GFR (Non-Af Amer) 26.0 ml/min 11/29/20 06:04 BUN/Creatinine Ratio 28.9 (10-20) H 11/29/20 06:04 Glucose 229 mg/dl (70-99) H 11/29/20 06:04 POC Glucose 213 mg/dl (70-99) H 11/29/20 11:42 Lactate 1.2 mmol/L (0.4-2.0) 11/25/20 08:05 Calcium 8.2 mg/dl (8.5-10.1) L 11/29/20 06:04 Phosphorus 3.7 mg/dl (2.5-4.9) D 11/27/20 06:46 Magnesium 2.3 mg/dl (1.8-2.4) 11/27/20 06:46 Total Bilirubin 0.6 mg/dl (0.2-1) 11/21/20 00:00 AST 26 U/L (15-37) 11/21/20 00:00 ALT 41 U/L (12-78) 11/21/20 00:00 Alkaline Phosphatase 141 U/L (45-117) H 11/21/20 00:00 Ammonia 28.0 umol/L (11-32) 11/21/20 01:04 Troponin I < 0.015 ng/ml (0-0.045) 11/21/20 00:00 Total Protein 7.2 gm/dl (6.4-8.2) 11/21/20 00:00 Albumin 2.7 gm/dl (3.4-5.0) L 11/21/20 00:00 Globulin 4.5 gm/dl (2.5-4.0) H 11/21/20 00:00 Albumin/Globulin Ratio 0.6 (0.9-2) L 11/21/20 00:00 Procalcitonin < 0.05 ng/ml (0-0.5) 11/25/20 08:05 COVID-19 Eval Order Covid19 IDNow atMSDC 11/28/20 11:28 SARS-CoV-2, RNA, NAAT NEGATIVE (NEGATIVE) 11/28/20 11:28 Impressions Chest CTA 11/21/20 02:58 CT ANGIOGRAM OF THE CHEST CLINICAL HISTORY: Cough. Dyspnea. Covid. COMPARISON STUDY: Chest x-ray dated 11/21/2020. TECHNIQUE: Following the IV administration of 118 cc of Optiray 350, CT an giogram of the chest was performed from the upper abdomen to the thoracic inlet utilizing the pulmonary embolus protocol. Images are reviewed in the axial, sagittal, and coronal planes. 3-D MIPS images are created and assessed. IV contrast was administered without complication. A dose lowering technique was utilized adhering to the principles of ALARA. CT DOSE: 958.55 mGy.cm FINDINGS: Thyroid: Atrophic and heterogeneous. Thoracic aorta: There is mild atherosclerotic calcification of the thoracic aorta, which is normal in caliber and demonstrates standard 3-vessel arch anatomy. No dissection is seen. Pulmonary vasculature: The pulmonary trunk is normal in caliber. There are no filling defects identified in main, lobar, or proximal segmental pulmonary branches to suggest pulmonary embolus. Evaluation of the peripheral branches is significantly degraded by motion artifact, greatest in the right lower lobe. Heart: The heart is top normal in size and without pericardial effusion. The coronary arteries are densely calcified. Lungs and pleural spaces: Evaluation of the lung parenchyma is degraded by motion artifact. Multifocal airspace consolidation is seen throughout both lungs. No pleural effusion is identified. The trachea and central airways are clear. Mediastinum: There are scattered subcentimeter mediastinal nodes. Ester: Mildly enlarged hilar nodes measure up to 11 mm in short axis. These are likely reactive. Axillae: There is no axillary lymphadenopathy. Upper abdomen: Cholecystectomy clips are noted. There is a tiny hiatal hernia. 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 Skeletal structures: The skeletal structures are osteopenic. Degenerative change and kyphoscoliosis are noted in the thoracic spine. No lytic or blastic bony lesions are seen. IMPRESSION: 1. Motion compromised examination. 2. There is no evidence of pulmonary embolus in the main, lobar, or proximal segmental pulmonary arteries. The peripheral branches are not well evaluated. 3. Multifocal airspace consolidation is consistent with the reported history of a viral pneumonia. Radiographic follow-up to resolution is recommended. 4. Advanced coronary artery calcification. 5. Additional findings as above. ACT 112: Negative or not required by law. Electronically signed by: Ramos Hinton M.D. 11/21/2020 7:26 AM KUB X-Ray 11/24/20 10:28 KUB HISTORY: Acute generalized abdominal pain abd. pain COMPARISON: CTA chest 11/21/2020 FINDINGS: Bibasilar opacities are better characterized on comparison chest CT. Cholecystectomy. Nonobstructive bowel gas pattern. The right lateral abdomen is excluded from the [id number] secondary to patient body habitus. Moderate fec al retention of the right hemicolon with nonobstructive bowel gas pattern. No pneumoperitoneum. Cholecystectomy. No urolith identified. Lumbar dextroscoliosis with multilevel degenerative changes of the spine, pelvis and hips. IMPRESSION: 1. Nonobstructive bowel gas pattern. 2. Cholecystectomy. 3. Moderate fecal retention of the right hemicolon. ACT 112: Negative or not required by law. The above report was generated using voice recognition software. It may contain grammatical, syntax or spelling errors. Electronically signed by: Jerad Bragg M.D. 11/24/2020 11:19 AM Abdomen/Pelvis CT 11/25/20 07:00 CT abd pelvis oral con only CLINICAL HISTORY: Umbilical hernia. COMPARISON STUDY: 11/24/2020 FINDINGS: The patient was scanned following administration of dilute oral contrast. No intravenous contrast was administered. A dose reduction technique was utilized according the principles of ALARA Images through the lung bases reveal calcified right hilar lymph nodes. There are multifocal pulmonary airspace opacities, consistent with a multifocal pneumonia, likely viral. No hepatic lesions are visualized in this noncontrast study. Gallbladder surgically absent. No splenic masses are visualized. No pancreatic masses are visualized. No adrenal masses are visualized. There is a horseshoe kidney. No renal, ureteral, or bladder calculi are visualized. There are no transition zones indicate bowel obstruction. There is no evidence of acute diverticulitis. The appendix appears normal. There is no evidence of abdominal aortic aneurysm. There is no pathologic adenopathy. There is an enlarged fibroid uterus. There is no free air. There is no ascites. There is a large fat-containing umbilical hernia measuring 10 cm. The hernia neck measures 23 mm. There is no longer a bowel loop within the hernia sac. IMPRESSION: 1. Bilateral pulmonary airspace opacities consistent with a multifocal pneumonia 2. No evidence of bowel obstruction. No evidence of free air 3. Normal appendix. No evidence of acute diverticulitis 4. 10 cm fat-containing umbilical hernia. The hernia neck measures 23 mm. There is no longer a bowel loop within the hernia sac. 5. Enlarged fibroid uterus ACT 112: Negative or not required by law. Electronically signed by: Rusty Alonso M.D. 11/25/2020 8:08 AM Chest X-Ray 11/25/20 07:42 XR chest 1V portable CLINICAL HISTORY: follow up COMPARISON STUDY: 11/21/2020 FINDINGS: The heart remains mildly enlarged. There is mild improvement in the multifocal pulmonary airspace opacities consistent with a multifocal pneumonia. There are no cervical pleural effusions. There is no pneumothorax.[ IMPRESSION: Mild improvement in the multifocal pulmonary airspace opacities consistent with a multifocal pneumonia. ACT 112: Negative or not required by law. Electronically signed by: Rusty Alonso M.D. 11/25/2020 8:10 AM Hospital Course (1) Acute metabolic encephalopathy: (2) COVID-19: (3) Periumbilical hernia: (4) Obesity: (5) Uncontrolled type 2 diabetes mellitus, with long-term current use of insulin: The patient is a 75-year-old female who presented to the ER with difficulty breathing and altered mental status. She had been discharged from the hospital after treatment for Covid pneumonia just 2 days prior on 11/19. She was readmitted to the hospital service. And CT angiogram of the chest revealed no evidence of pulmonary embolus. Multifocal airspace consolidation consistent with history of viral pneumonia was seen. She was started on dexamethasone and this was continued along with bronchodilator therapy, incentive spirometry, flutter valve and oxygen supplementation. It was noted that during the prior hospitalization remdesivir has been stopped due to kidney dysfunction. Her mental status improved after the initial interventions in the ER. Procalcitonin remain negative. She required supplemental oxygen during the initial part of her hospitalization. She initially received Zosyn IV in the ER and this was stopped after 1 dose followed by doxycycline 100 mg twice daily. She notably has a history of chronic systolic heart failure and was felt to be compensated during this hospitalization. She was maintained on home medications including Coreg, Lasix and lisinopril. She was physically deconditioned. Glucose levels were inconsistently low then high during her hospital stay. The glycemic pharmacist assisted with management of insulin. On 11/24 she developed severe abdominal pain in her umbilical hernia region and general surgery was consulted. This pain was associated with nausea and vomiting and a KUB obtained revealed a nonobstructive bowel gas pattern. A CT of the abdomen pelvis was performed revealing a moderate sized periumbilical hernia containing mesenteric fat, trace free fluid and a fluid-filled mildly predominant nondilated loop of small bowel. There was narrowing of the bowel loop as it entered and exited the hernia sac. Although white blood cell count was 14 she was notably on steroids. Lactate was 1.6 and creatinine was 1.9. Her vital signs were stable. Hernia was manually reduced at the bedside with resolution of symptoms and improvement of pain per patient. She was kept n.p.o. for short period of time and a repeat CT of the abdomen pelvis with oral contrast was performed the following day. This revealed no evidence of bowel obstruction and no evidence of free air. There was no evidence of acute diverticulitis. A 10 cm fat-containing umbilical hernia was seen with a hernia neck measuring 23 mm. There was no longer a new bowel loop within the hernia sac. Her diet was advanced as tolerating and she was tolerating p.o. at time of discharge. At time of discharge she was hemodynamically stable and afebrile and oxygenating well on room air. She was mentating at her baseline with notable ambulatory dysfunction. She was stable for discharge to [facility] for continued rehab efforts as a transition to more independent living. At time of discharge she was off Covid isolation precautions per local hospital protocol. Close follow-up with primary care recommended within 1 week of discharge. Additionally, a repeat chest x-ray in 4 to 6 weeks is recommended to come ensure complete resolution of pneumonia. This may be ordered by primary care provider. During her hospitalization, as a result of some bradycardia and hypotension that was noted, her beta-mendez, GERMAIN inhibitor and daily diuretic were reduced. Outpatient follow-up recommended to monitor the effects of these changes. Additionally, close follow-up with her service observer chief is recommended regarding difficult to control blood sugars during this hospital stay. Total Time Total Time Spent Total Time Spent (In Minutes): 60 Total Time Includes: Examination of the Patient, Discharge Planning, Medication Reconciliation and Communication With Other Providers Discharge Plan Discharge Items Patient Disposition: Transfer Half-Way Fac Reason For Visit: RESPIRATORY FAILURE, COVID Discharge Diagnosis: Acute metabolic encephalopathy-resolved Covid pneumonia Type 2 diabetes myelitis Chronic systolic heart failure Abdominal pain-periumbilical hernia status post manual reduction on 11/24 Obesity Condition on Discharge: Good Activity: As commented below Activity Comment: per accepting rehab facility Non-emergency contact: Primary Care Provider Call non-emergency contact if: you have any medication questions, your symptoms worsen and your pain is not controlled Follow-up/Referrals: Mai Judge MD [Primary Care Provider] - Diet: Carb Consistent or DM2 and Low Fiber Addtl Attending Provider Instructions: Please take all medications as instructed on discharge list below. It is recommended that you follow-up with your primary care provider within 1 week of discharge to ensure you are still doing well after this hospital stay. Multiple medications have been reduced that you were previously taking, and adjustments may need to be made. Additionally, changes have been made to your insulin regimen based on glucose values while you are in the hospital. This may need to be adjusted and endocrinology follow-up is recommended. An additional resource would be the local [facility] clinic for diabetic glucose management. Your primary care provider can guide you further regarding these resources. A repeat chest xray to ensure complete resolution of pneumonia is recommended in 4 weeks. This may be ordered by your primary care provider. Your periumbilical hernia was manually reduced during this hospitalization with resolution of symptoms. However, if you develop acute abdominal pain or are concerned for any change in this area, please contact your general surgeon or seek immediate medical attention. It was a pleasure taking care of you! Please call if you have any questions or problems. You can reach a [facility] hospitalist on duty at [facility] 24 hours a day by calling [phone]. Take care of yourself. Radha Nick, DO [facility] Hospitalist Pending Studies at Discharge: No Stand-Alone Forms: My [facility] Skilled Items Patient informed of condition?: Yes DNR: Yes Discharge Level of Care: Skilled Communicable Disease: No Discharge Prognosis: Stable Lines: None Urinary Catheter: No Medications and DC Order Prescriptions: New lisinopril 2.5 mg Tablet 2.5 mg PO QAM Qty: 30 RF: 0 carvedilol 3.125 mg Tablet 3.125 mg PO BID Qty: 60 RF: 0 furosemide 20 mg Tablet 20 mg PO QAM Qty: 30 RF: 0 Novolin N NPH U-100 Insulin 100 unit/mL suspension 20 unit subcut PM Qty: 6 RF: 0 insulin aspart U-100 [Novolog Flexpen U-100 Insulin] 100 unit/mL (3 mL) insulin pen 5 unit subcut QDD Qty: 1.5 RF: 0 Novolin N NPH U-100 Insulin 100 unit/mL suspension 35 unit subcut QAM Qty: 10.5 RF: 0 insulin aspart U-100 [Novolog Flexpen U-100 Insulin] 100 unit/mL (3 mL) insulin pen 20 unit subcut QDB Qty: 6 RF: 0 Continued (DME) blood-glucose meter [Accu-Chek Guide Glucose Meter] misc See Dose Instructions .ROUTE .MEDSUPPLY Qty: 1 RF: 0 (DME) lancets [Accu-Chek Fastclix Lancet Drum] misc See Dose Instructions .ROUTE .MEDSUPPLY Qty: 102 RF: 3 (DME) pen needle, diabetic [BD Ultra-Fine Esha Pen Needle] 32 gauge x 5/32" needle See Rx Instructions .ROUTE .MEDSUPPLY Qty: 300 RF: 3 (DME) Accu-Chek Guide test strips Strip See Dose Instructions .ROUTE .MEDSUPPLY Qty: 300 RF: 3 aspirin 81 mg tablet,delayed release (DR/EC) 81 mg PO QAM RF: 0 loratadine 10 mg tablet 10 mg PO QAM RF: 0 benzonatate 100 mg capsule 100 mg PO TID PRN (Reason: Cough) RF: 0 Glucagon Emergency Kit (human) 1 mg recon soln 1 mg IM Q20M PRN (Reason: Hypoglycemia) RF: 0 albuterol sulfate [Ventolin HFA] 90 mcg/actuation HFA aerosol inhaler 2 puffs INH QID PRN (Reason: Shortness Of Breath) RF: 0 cholecalciferol (vitamin D3) 25 mcg (1,000 unit) capsule 25 mcg PO DAILY RF: 0 famotidine [Pepcid] 40 mg tablet 40 mg PO DAILY RF: 0 omega-3 fatty acids-fish oil [Fish Oil] 360-1,200 mg capsule 1 cap PO DAILY RF: 0 (DME) insulin syringe-needle U-100 [BD Insulin Syringe Ultra-Fine] 1 mL 30 gauge x 1/2" syringe See Rx Instructions .ROUTE .MEDSUPPLY Qty: 10 RF: 0 levothyroxine 175 mcg Tablet 175 mcg PO QAM RF: 0 triamcinolone acetonide 0.1 % Cream 1 applic TOPICAL BID PRN (Reason: Rash) RF: 0 nystatin 100,000 unit/gram Cream 1 applic TOPICAL DAILY PRN (Reason: Rash) RF: 0 acyclovir 5 % Cream 1 applic TOPICAL UD PRN (Reason: Cold Sores) RF: 0 atorvastatin 40 mg tablet 40 mg PO QAM RF: 0 clopidogrel 75 mg tablet 75 mg PO QAM RF: 0 diclofenac sodium 1 % gel 2 - 4 g TOP QID PRN (Reason: joint pain) RF: 0 Discontinued carvedilol 6.25 mg tablet 6.25 mg PO BID Qty: 60 RF: 2 furosemide 40 mg tablet 40 mg PO QAM RF: 0 lisinopril 2.5 mg tablet 5 mg PO QAM RF: 0 insulin aspart U-100 [Novolog Flexpen U-100 Insulin] 100 unit/mL (3 mL) insulin pen 40 unit SQ DIRECTED RF: 0 Novolin N NPH U-100 Insulin 100 unit/mL suspension 45 - 75 unit SUBCUT AMPM RF: 0 Discharge Orders: Discharge Order (Routine); Ordered 11/29/20 Ordered By: Radha Nick Admission Data Admit Date/Time: 11/21/20 03:08 Attending Provider: Radha Nick Admit Provider: Pj Bonilla Primary Care Provider: Mai Judge Other Providers: Jevon Simons ; Pj Bonilla ; Estrada Salazar ; [facility]
== END 2020-11-29 14:50 ==
LOC: ED 23:40 → SUATTDRO 11-21 03:08 → 2E 11-21 03:08 → 2W 11-25 15:56